=== PATIENT | male | born 1990 | race Caucasian/White ===

== ENCOUNTER 2017-11-06 19:10 | Emergency (ER) | payer MEDICARE, MEDICAID, SELFPAY ==
[2017-11-06 19:10] VITALS: BP 139/91; PULSE 122; RESP 20; TEMP 36.7; O2SAT 95; BMI 30.7
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
[2017-11-06] MEDS: Naproxen 250 MG Tablet 500 MG PO (20:25)
[2017-11-06] MEDS: HYDROcodone Bitartrate/Apap 5/325 Tablet PO (20:25)
--- NOTE | 2017-11-06 20:32 | ED.RN ---
Verbal and written d/c instructions given to patient. Dressing placed and instructions for follow up given. Gait steady out of department.
== END 2017-11-06 20:30 | disposition home or self-care (01) ==
PROVIDERS: Emergency Provider Emergency Medicine
DX: T23.232A Burn of second degree of multiple left fingers (nail), not including thumb, initial encounter (principal); X00.8XXA Other exposure to uncontrolled fire in building or structure, initial encounter; Y93.9 Activity, unspecified; Y92.9 Unspecified place or not applicable; Y99.9 Unspecified external cause status; Z72.0 Tobacco use
CPT/HCPCS: 99283

== ENCOUNTER 2018-07-19 19:08 | Emergency (ER) | payer MEDICARE, MEDICAID, SELFPAY ==
[2018-07-19 19:09] VITALS: BP 138/77; PULSE 115; RESP 17; TEMP 37.4; O2SAT 98; BMI 27.1
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
== END 2018-07-19 19:49 | disposition home or self-care (01) ==
LOC: ED 19:48
PROVIDERS: Emergency Provider Emergency Medicine
DX: S51.811A Laceration without foreign body of right forearm, initial encounter (principal); W25.XXXA Contact with sharp glass, initial encounter; Y93.9 Activity, unspecified; Y92.009 Unspecified place in unspecified non-institutional (private) residence as the place of occurrence of the external cause; Y99.9 Unspecified external cause status
CPT/HCPCS: 12002; 99284

== ENCOUNTER 2018-07-28 22:58 | Emergency (ER) | payer MEDICARE, MEDICAID, SELFPAY ==
[2018-07-28 23:00] VITALS: BP 134/76; PULSE 97; RESP 18; TEMP 37.1; O2SAT 98; BMI 28.4
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
--- NOTE | 2018-07-28 23:19 | ED.DEP ---
ED Disposition - Plan for ED Patient: Chief Complaint: Wound Check Instructions: ED Wound Check Laceration FU Infec, ED Pharyngitis Viral Prescriptions: Cephalexin [Keflex] 500 mg PO Q6 #40 cap Referrals: Care Physician,No Primary [Primary Care Provider] -
== END 2018-07-28 23:34 | disposition home or self-care (01) ==
LOC: ED 23:24
PROVIDERS: Emergency Provider Emergency Medicine
DX: S51.811D Laceration without foreign body of right forearm, subsequent encounter (principal); L08.9 Local infection of the skin and subcutaneous tissue, unspecified; W25.XXXD Contact with sharp glass, subsequent encounter; J02.9 Acute pharyngitis, unspecified; Z72.0 Tobacco use
CPT/HCPCS: 99282

== ENCOUNTER 2019-03-08 14:34 | Emergency (ER) | payer MEDICARE, MEDICAID, SELFPAY ==
[2019-03-08 14:35] VITALS: BP 129/73; PULSE 119; RESP 16; TEMP 36.8; O2SAT 98; BMI 27.3
[2019-03-08 15:01] VITALS: PULSE 94; RESP 16; O2SAT 97
--- NOTE | 2019-03-08 15:07 | CT_ITS ---
STUDY: CT ABDOMEN AND PELVIS WITH CONTRAST REASON FOR EXAM: Male, 28 years old. Right lower quadrant pain radiating to right testicle RADIATION DOSAGE (If Supplied By Facility): CTDIvol = ( 14.23 ) mGy, DLP = ( 991.05 ) mGycm TECHNIQUE: Transaxial images were obtained from the dome of the diaphragm to the symphysis pubis without oral contrast. 100ML IV Isovue 300 was administered. Sagittal and coronal images were reconstructed. Individualized dose optimization techniques were used for this CT. COMPARISON: None. FINDINGS: There is scanning artifact on multiple images secondary to orthopedic spinal hardware. The visualized lung bases are unremarkable. The visualized portions of the heart are within normal limits. Normal liver. Normal gallbladder and extrahepatic biliary system. Normal spleen. Normal pancreas. Normal bilateral adrenal glands. Normal right kidney. Normal left kidney. Normal visualized stomach. Normal small intestine. There is sigmoid diverticulosis with no evidence of diverticulitis. The appendix is visualized and appears normal. Normal abdominal aorta. Normal inferior vena cava. Normal retroperitoneum. Normal urinary bladder. The prostate, seminal vesicles, and seminal vesicle angles appear normal. Normal abdominal wall. There are posterior spinal fusion changes with rods and interpeduncular screws from the visualized lower thoracic region to L3. CT/Abdomen/Pelvis W IV Cont ONLY IMPRESSION: Sigmoid diverticulosis with no evidence of diverticulitis. There is no evidence of nephro or ureterolithiasis, hydronephrosis, or hydroureter. The appendix appears normal. Posterior spinal fusion changes with rods and interpeduncular screws from the visualized lower thoracic region to L3. Electronically Signed: Stephane Dow MD at 16:21 EDT , Service support ,
--- NOTE | 2019-03-08 15:08 | US_ITS ---
STUDY: SCROTUM ULTRASOUND REASON FOR EXAM: Male, 28 years old. Scrotal pain TECHNIQUE: Ultrasound evaluation of the scrotum was performed with color Doppler and static albert-scale imaging. COMPARISON: None. FINDINGS: RIGHT TESTICLE INTRATESTICULAR: There is a normal size of the right testicle. The right testicle measures 4.6 x 3.5 x 2.4 cm. There is a homogenous echotexture. There is increased arterial and increased venous vascularity. There is no demonstrated right testicular mass or cyst. EXTRATESTICULAR: The epididymis is normal in size. The epididymis head measures 0.6 x 0.9 x 1.0 cm. There is increased (hyperemic) vascularity of the epididymis. There is no demonstrated epididymal cystic structure. There is a small hydrocele. There is no demonstrated varicocele. There is no demonstrated extratesticular mass or cyst. LEFT TESTICLE INTRATESTICULAR: There is a normal size of the left testicle. The left testicle measures 4.7 x 3.0 x 2.0 cm. There is a homogenous echotexture. There is normal arterial and normal venous vascularity. There is no demonstrated left testicular mass or cyst. EXTRATESTICULAR: The epididymis is normal in size. The epididymis head measures 0.6 x 1.0 x 1.2 cm. There is normal vascularity of the epididymis. There is no demonstrated epididymal cystic structure. There is no demonstrated hydrocele. There is no demonstrated varicocele. There is no demonstrated extratesticular mass or cyst. US/Testicular with Arterial Flow IMPRESSION: Increased vascularity of the right testicle and epididymal head which may represent epididymoorchitis. There is a small right hydrocele. Electronically Signed: Stephane Dow MD at 16:58 EDT , Service support ,
--- NOTE | 2019-03-08 15:09 | ED.DCSUM_ITS ---
- ER Visit Summary Date of Service: 03/08/19 Chief Complaint: Right lower quadrant abdominal pain and right testicular pain History of Present Illness: The patient is a 28 M who presents for right lower quadrant abdominal pain, onset yesterday, that is now radiating into the right testicle with some pain and swelling in the testicle. He is pain is constant with intermittent sharp pains. There is no radiation into the back or remainder of the abdomen. Patient denies any fever. No vomiting or diarrhea but he does have nausea. No urinary symptoms. Patient has no history of abdominal surgeries. No medical history. Patient has not tried any medication for his pain. Physical Examination: Vital signs: afebrile, hemodynamically stable, no hypoxia on room air General: well nourished, well developed, in no distress Skin: warm, dry, no rash, no pallor HEENT: normocephalic and atraumatic; PERRL, EOMI, moist mucous membranes Cardiovascular: Tachycardic rate and rhythm without murmurs, no peripheral edema, 2+ pulses all distal extremities Respiratory: No increased work of breathing, lungs are clear to auscultation bilaterally, no rales, rhonchi or wheezing Abdominal: Abdomen is soft, tender in the right lower quadrant with normoactive bowel sounds, no guarding or rebound, no masses : No penile lesions or discharge, no tenderness to palpation of the left testicle, no noted swelling of the right testicle but diffuse tenderness to palpation, normal vertical lie, cremasteric reflex intact MSK: Moves all extremities, no deformities, normal strength Neuro: Awake and alert, oriented ?4. No facial droop, sensation and motor function intact and symmetric Test Results: Abnormal Lab Results 03/08/19 03/08/19 03/08/19 15:20 15:20 16:36 WBC 11.8 H RBC 5.55 Hgb 16.2 Hct 47.4 MCV 85.4 MCH 29.2 MCHC 34.2 RDW 13.0 RDW Differential 40.5 Plt Count 232 MPV 10.1 Immature Gran % (Auto) 0.300 Neut % (Auto) 73.4 H Lymph % (Auto) 17.9 L Waller % (Auto) 8.1 Eos % (Auto) 0.2 Baso % (Auto) 0.1 Absolute Neuts (auto) 8.7 H Absolute Lymphs (auto) 2.11 Total Counted Not Reportable Sodium 137 Potassium 4.0 Chloride 106 Carbon Dioxide 27.0 Anion Gap 4 L BUN 8 Creatinine 0.81 Estim Creat Clear Calc 143.32 Est GFR (MDRD) Af Amer 145 Est GFR (MDRD) Non-Af 120 BUN/Creatinine Ratio 9.9 L Glucose 82 Calcium 9.2 Total Bilirubin 0.50 AST 19 ALT 31 Alkaline Phosphatase 99 Total Protein 8.3 H Albumin 4.4 Globulin 3.9 Albumin/Globulin Ratio 1.1 Urine Color Yellow Urine Clarity Clear Urine pH 6.0 Ur Specific [place] 1.005 Urine Protein Negative Urine Glucose (UA) Normal Urine Ketones Negative Urine Occult Blood Negative Urine Nitrite Negative Urine Bilirubin Negative Urine Urobilinogen Normal Ur Leukocyte Esterase Negative Urine RBC 0 SEEN Urine WBC 0 SEEN Ur Squamous Epith Cells 0 SEEN Urine Bacteria 0 SEEN Urine Mucus 0 SEEN Chlam trachomat DNA PCR N.gonorrhoeae DNA (PCR) 03/08/19 16:36 WBC RBC Hgb Hct MCV MCH MCHC RDW RDW Differential Plt Count MPV Immature Gran % (Auto) Neut % (Auto) Lymph % (Auto) [place] % (Auto) Eos % (Auto) Baso % (Auto) Absolute Neuts (auto) Absolute Lymphs (auto) Total Counted Sodium Potassium Chloride Carbon Dioxide Anion Gap BUN Creatinine Estim Creat Clear Calc Est GFR (MDRD) Af Amer Est GFR (MDRD) Non-Af BUN/Creatinine Ratio Glucose Calcium Total Bilirubin AST ALT Alkaline Phosphatase Total Protein Albumin Globulin Albumin/Globulin Ratio Urine Color Urine Clarity Urine pH Ur Specific [place] Urine Protein Urine Glucose (UA) Urine Ketones Urine Occult Blood Urine Nitrite Urine Bilirubin Urine Urobilinogen Ur Leukocyte Esterase Urine RBC Urine WBC Ur Squamous Epith Cells Urine Bacteria Urine Mucus Chlam trachomat DNA PCR Negative N.gonorrhoeae DNA (PCR) Negative Clinical Impression(s) from Imaging Studies Abdomen/Pelvis CT 03/08/19 15:07 IMPRESSION: Sigmoid diverticulosis with no evidence of diverticulitis. There is no evidence of nephro or ureterolithiasis, hydronephrosis, or hydroureter. The appendix appears normal. Posterior spinal fusion changes with rods and interpeduncular screws from the visualized lower thoracic region to L3. Electronically Signed: Stephane Dow MD at 16:21 EDT , Service support , Testicular Ultrasound 03/08/19 15:08 IMPRESSION: Increased vascularity of the right testicle and epididymal head which may represent epididymoorchitis. There is a small right hydrocele. Electronically Signed: Stephane Dow MD at 16:58 EDT , Service support , Medications Given Discontinued Medications Ceftriaxone Sodium (Rocephin) 250 mg IM X1 ONE Stop: 03/08/19 17:29 Last Admin: 03/08/19 18:33 Dose: 250 mg Documented by: BESS Sodium Chloride () 1,000 mls @ 1,000 mls/hr IV .Q1H ONE Stop: 03/08/19 16:06 Last Admin: 03/08/19 15:27 Dose: 1,000 mls/hr Documented by: BESS Levofloxacin (Levaquin Tablet) 500 mg PO X1 ONE Stop: 03/08/19 17:31 Last Admin: 03/08/19 18:32 Dose: 500 mg Documented by: BESS Morphine Sulfate () 4 mg IV X1 ONE Stop: 03/08/19 15:08 Last Admin: 03/08/19 15:27 Dose: 4 mg Documented by: BESS Ondansetron HCl (Zofran) 4 mg IV X1 ONE Stop: 03/08/19 15:08 Last Admin: 03/08/19 15:27 Dose: 4 mg Documented by: BESS Emergency Department Course and Treatment: Patient was given fluids, morphine and Zofran for symptomatic relief. CT scan of the abdomen and pelvis was performed to look for possible appendicitis. Ultrasound performed of the scrotum to evaluate for epididymitis or torsion. CT scan showed no acute findings. Ultrasound was concerning for epididymoorchitis. Patient's urine showed no hematuria or pyuria. Culture pending. Labs were otherwise unremarkable. Patient did receive morphine, IV fluids and Zofran at initial presentation for his pain. He has had unprotected sex in the last 5 months but denies any discharge, dysuria or other symptoms of STI. Because of the patient's age and the epididymoorchitis, he was covered for gonorrhea and chlamydia as well as enteric pathogens. He was given intramuscular Rocephin. He was discharged home on Levaquin. Return precautions given. Patient discharged home. After discharge, gonorrhea and chlamydia returned and were both negative. Treatment Plan: [] Disposition: [] Impression: Right epididymoorchitis This note was generated with [employer] dictation software. It may contain incorrect words, spelling, and punctuation that were not noted in review of the chart prior to signing ED Disposition - Plan for ED Patient: Disposition: Home or Assisted Living Instructions: Epididymitis, Orchitis Prescriptions: levoFLOXacin tablet [Levaquin] 500 mg PO DAILY #10 tab Prescription Printed Naproxen [Naprosyn] 500 mg PO BID PRN #20 tab Prescription Printed Referrals: Care Physician,No Primary [Primary Care Provider] - Additional Instructions: Take the antibiotics for the full 10 days even if you feel better before they are complete. Use naproxen as needed for pain. Please follow-up with your new primary care doctor if you are not having improvement. If you have any worsening of your condition or any new concerning symptoms, please return immediately to the emergency department for another evaluation.
[2019-03-08] MEDS: Morphine 4 MG/ML Syringe IV (15:27)
[2019-03-08] MEDS: Ondansetron 4 MG/2 ML Vial IV (15:27)
[2019-03-08] MEDS: 0.9% Normal Saline 1,000 ML 1000 ML IV (15:27)
[2019-03-08 15:30] LABS: Absolute Lymphocyte Count 2.11 X10^3/ul (0.83-4.51); Absolute Neutrophil Count 8.7 X10^3/uL (2.0-7.7); Basophil# 0.01 X10^3/uL; Basophil% 0.1 % (0-1); Eosinophil# 0.02 X10^3/uL; Eosinophils% 0.2 % (0-5); Hematocrit 47.4 % (40-54); Hemoglobin 16.2 g/dl (13.0-16.5); Lymphocyte # 2.11 X10^3/ul (4.0); Lymphocyte % 17.9 % (19-41); Mean Corp Hgb Conc 34.2 g/gl (32-36); Mean Corpuscular Hgb 29.2 pg (27.0-32.0); Mean Corpuscular Volume 85.4 fL (80-94); Mean Platelet Vol. 10.1 fl (6.2-12.0); Monocyte# 0.96 X10^3/uL; Monocyte% 8.1 % (0-10); Neutrophil # 8.65 X10^3/uL (2.7-7.7); Neutrophil % 73.4 % (47-70); Platelet Count 232 K/mm3 (150-450); RBC Distribution Width SD 40.5 fl (35.1-43.9); Red Blood Count 5.55 M/mm3 (4.6-6.2); White Blood Count 11.8 K/mm3 (4.4-11.0)
[2019-03-08 15:33] LABS: POSITIVE COUNT NO; POSITIVE DIFFERENTIAL NO; POSITIVE MORPHOLOGY NO
[2019-03-08 15:47] LABS: BUN 8 mg/dL (7-18); Creatinine, Serum 0.81 mg/dL (0.70-1.30); Estimated Creatinine Clearance 143.32 ml/min; Glucose 82 mg/dL (74-106)
[2019-03-08 15:48] LABS: ALB/GLOB Ratio 1.1 RATIO (0.9-2.4); AST(SGOT) 19 U/L (15-37); Alanine Aminotransfer ALT/SGPT 31 U/L (16-61); Albumin, Serum 4.4 g/dL (3.2-5.0); Alkaline Phosphatase 99 U/L (45-117); Anion Gap 4 (5-15); BUN/Creat Ratio 9.9 RATIO (10-20); Calcium,Total 9.2 mg/dL (8.5-10.1); Chloride 106 mmol/L (98-107); EST Glomerular Filtration Rate 120 mL/min (>60); Est Glom Filt Rate - Afr Amer 145 mL/min (>60); Globulin 3.9 g/dL (2.2-4.2); Protein, Total 8.3 g/dL (6.4-8.2); Sodium Level 137 mmol/L (136-145)
[2019-03-08 16:46] LABS: Bacteria 0 SEEN /hpf (None Seen); Mucous, Urine 0 SEEN /hpf (<or=2+); Red Blood Cells-Urine 0 SEEN /hpf (0-5); Squamous Epithelial Cells - UA 0 SEEN /hpf (0-5); White Blood Cells 0 SEEN /hpf (0-5)
[2019-03-08 16:54] LABS: Color, Urine Yellow (Yellow); Glucose, Dipstick Normal (Normal); Ketone-Dipstick Negative (Negative); Leukocyte Esterase-Dipstick Negative /ul (Negative); Nitrite-Dipstick Negative (Negative); Occult Blood-Urine Negative /ul (Negative); Protein-Dipstick Negative (Negative); Specific Gravity, Urine 1.005 (1.002-1.030); Urine Bilirubin Dipstick Negative (Negative); Urine Clarity Clear (Clear); Urine Urobilinogen Normal (Normal)
[2019-03-08 17:50] VITALS: RESP 16
[2019-03-08] MEDS: levoFLOXacin 250 MG Tablet 500 MG PO (18:32)
[2019-03-08] MEDS: Ceftriaxone 500 MG Vial 250 MG IM (18:33)
[2019-03-08 18:45] VITALS: BP 123/81; PULSE 81; RESP 14; O2SAT 97
[2019-03-08 20:25] LABS: Chlamydia Trachomatis by PCR Negative (Negative); Neisserai gonorrhoeae by PCR Negative (Negative); Probe Check PASS; Sample Adequacy Control PASS; Specimen Processing Control PASS
== END 2019-03-08 18:45 | disposition home or self-care (01) ==
PROVIDERS: Emergency Provider Emergency Medicine
DX: N45.3 Epididymo-orchitis (principal); N43.3 Hydrocele, unspecified; K57.30 Diverticulosis of large intestine without perforation or abscess without bleeding; R00.0 Tachycardia, unspecified; R11.0 Nausea; Z72.0 Tobacco use
CPT/HCPCS: 74177; 76870; 80053; 81001; 85025; 87086; 87088; 87491; 87591; 93976; 96361; 96372; 96374; 96375; 99285; J7030; Q9967; J2405

== ENCOUNTER 2019-09-08 16:17 | Emergency (ER) | payer MEDICAID, SELFPAY ==
[2019-09-08 16:18] VITALS: BP 120/87; PULSE 97; RESP 18; TEMP 37.4; O2SAT 97; BMI 27.0
--- NOTE | 2019-09-08 16:38 | ED.DCSUM_ITS ---
- ER Visit Summary Date of Service: 09/08/19 Chief Complaint: Dental pain History of Present Illness: The patient is a 29 M who presents with right upper dental pain that became worse today. Patient states he noted some swelling over the right upper gingiva along the area of the first molar. There is no d ischarge or drainage. Patient denies any fevers or chills. Patient admits to hot and cold sensitivity. Patient describes his pain is aching and constant. Physical Examination: Vital signs are stable. Patient is afebrile. Patient is in no acute distress. Oral mucosa is pink and moist. There is a small pustule noted over the gingiva over the right upper first molar. There is some mild fluctuance. There are multiple dental caries noted. Oropharynx is clear. Neck is supple. Trachea is midline. There is no JVD. There is no cervical lymphadenopathy noted. Emergency Department Course and Treatment: The pustule was incised with the tip of an 18-gauge needle. A moderate amount of purulent drainage was expressed. Patient tolerated the procedure well. Patient felt better on reevaluation. Patient was given a prescription for Pen-Vee K. Patient was instructed to follow-up with his primary care physician and dentist in 5 to 7 days. Patient understood and was agreeable with the plan. All questions were answered. Disposition: Discharge home Impression: Dental abscess This note was generated with [employer] dictation software. It may contain incorrect words, spelling, and punctuation that were not noted in review of the chart prior to signing ED Disposition - Plan for ED Patient: Disposition: Home or Assisted Living Diagnosis: Dental abscess Instructions: Dental Abscess Prescriptions: Penicillin V Potassium 500 mg PO 4X/DAY #40 tab Prescription Printed Referrals: Care Physician,Elina Primary [Primary Care Provider] - Christine Andrews [NON-STAFF] - 5-7 Days
== END 2019-09-08 16:53 | disposition home or self-care (01) ==
LOC: ED 16:42
PROVIDERS: Emergency Provider Emergency Medicine
DX: K04.7 Periapical abscess without sinus (principal); K02.9 Dental caries, unspecified; R51 Headache; R11.0 Nausea; Z72.0 Tobacco use; Z79.899 Other long term (current) drug therapy
CPT/HCPCS: 41800; 99282

== ENCOUNTER 2019-09-21 10:02 | Emergency (ER) | payer MEDICAID, SELFPAY ==
[2019-09-21 10:04] VITALS: BP 142/78; PULSE 123; RESP 18; TEMP 36.7; O2SAT 95; BMI 27.1
--- NOTE | 2019-09-21 10:34 | ED.VIS.GEN ---
History of Present Illness Chief Complaint: Dental Informant: Patient Onset: Today Current Severity: Moderate Maximum Severity: Moderate Narrative: Patient reports waking this morning with swelling of his left maxillary gums and dental pain. His left maxillary second molar had broken off sometime ago. He was recently here for right-sided dental pain and completed a course of Pen-Vee K. He states he is not been able to find a dentist that will take his insurance. - Past Medical History (1) Gastritis Status: Resolved Past Medical History - Allergies and Home Meds Allergies/Adverse Reactions: Allergies No Known Allergies Allergy (Verified 09/21/19 10:03) Primary Care Physician: Care Physician,No Primary [Primary Care Provider] - Prior records reviewed: Yes Smoking Status: Current every day smoker Review of Systems General: Denies: Chills, Fever Eyes: Denies: Visual changes - bilaterally ENT: Reports: - - Dental pain. Denies: Bilateral ear pain Cardiovascular: Denies: Chest pain Respiratory: Denies: Dyspnea, Cough Gastrointestinal: Denies: Abdominal pain, Nausea, Vomiting, Diarrhea Musculoskeletal: Denies: Neck pain, Back pain Skin: Denies: Rash Neurological: Denies: Headache Allergy: Denies: Uticaria Physical Exam Vital Signs/Narrative: Vital Signs Temp Pulse Resp BP Pulse Ox 09/21/19 10:04 98.1 F 123 H 18 142/78 H 95 Inital Vital Signs reviewed: Yes General: Well nourished, Well developed Head: Normocephalic, Atraumatic Eyes: EOMI ENT: - - Left maxillary second molar is broken off at the gumline. Patient has mild drainage from the site with surrounding gum edema. Posterior pharynx examination is normal. Patient is tolerating secretions well and has a strong voice. Neck: Supple Cardiovascular: Tachycardia Respiratory: No distress, CTA bilaterally Abdomen: Soft, Nontender Back: Nontender Extremities: Nontender Skin: Normal color Neurological: Alert, Oriented x3 Psychological: Normal affect Diagnostic/Tx/Re-eval - Medical Decision Making Patient recently completed a course of penicillin. He will be given clindamycin and naproxen. He is given a list of the dental clinics in the area. ED Disposition - Plan for ED Patient: Disposition: Home or Assisted Living Diagnosis: Dental abscess Instructions: Dental Abscess Prescriptions: Clindamycin [Cleocin] 300 mg PO 4X/DAY #80 cap Transmission Status: Pending to [facility] Naproxen [Naprosyn] 500 mg PO BID PRN PRN #20 tab PRN Reason: Pain Score 4-10/10 [facility] Additional Instructions: Dental list provided
[2019-09-21] MEDS: Naproxen 500 MG Tablet PO (11:00)
[2019-09-21] MEDS: Clindamycin HCl 150 MG Capsule 300 MG PO (11:00)
--- NOTE | 2019-09-21 11:03 | ED.RN ---
DISCHARGE INSTRUCTIONS GIVEN INTO AND REVIEWED WITH PATIENT, PATIENT DENIES QUESTIONS OR CONCERNS AND VOICES UNDERSTANDING OF DISCHARGE INSTRUCTIONS. PT AMBULATES OUT OF ROOM WITHOUT DIFFICULTY.
== END 2019-09-21 11:04 | disposition home or self-care (01) ==
LOC: ED 10:52
PROVIDERS: Emergency Provider Emergency Medicine
DX: K04.7 Periapical abscess without sinus (principal); F17.200 Nicotine dependence, unspecified, uncomplicated
CPT/HCPCS: 99283

== ENCOUNTER 2019-12-17 12:38 | Emergency (ER) | payer MEDICAID, SELFPAY ==
[2019-12-17 12:39] VITALS: BP 124/93; PULSE 104; RESP 18; TEMP 36.8; O2SAT 99; BMI 25.1
--- NOTE | 2019-12-17 13:00 | ED.VIS.GEN ---
History of Present Illness Chief Complaint: Back Informant: Patient Onset: Days Current Severity: Moderate Maximum Severity: Moderate Narrative: Patient slipped on some wet choi and fell 2 days ago. He has had progressively increasing right low back pain since that time it is now shooting down the right leg. No problems with bowel or bladder control. No paresthesias. He has had prior back surgery with fransisco placement. - Past Medical History (1) Previous back surgery Status: Chronic Past Medical History - Allergies and Home Meds Allergies/Adverse Reactions: Allergies No Known Allergies Allergy (Verified 12/17/19 12:39) Primary Care Physician: Care Physician,No Primary [Primary Care Provider] - Prior records reviewed: Yes Smoking Status: Current every day smoker Review of Systems General: Denies: Chills, Fever Eyes: Denies: Visual changes - bilaterally ENT: Denies: Bilateral ear pain Cardiovascular: Denies: Chest pain Respiratory: Denies: Dyspnea, Cough Gastrointestinal: Denies: Abdominal pain, Nausea, Vomiting, Diarrhea Genitourinary: Denies: Dysuria Musculoskeletal: Reports: Back pain, Extremity Pain Skin: Denies: Rash Neurological: Denies: Headache, Weakness, Parasthesia Psych: Denies: Depression Hematologic: Denies: Easy bruising Allergy: Denies: Uticaria Physical Exam Vital Signs/Narrative: Vital Signs Temp Pulse Resp BP Pulse Ox 12/17/19 12:39 98.2 F 104 H 18 124/93 H 99 Inital Vital Signs reviewed: Yes General: Well nourished, Well developed Head: Normocephalic ENT: Moist mucous membranes Neck: Supple Cardiovascular: Regular rate, Regular rhythm Respiratory: No distress, CTA bilaterally Abdomen: Soft, Nontender Back: - - No midline tenderness. Does have reproducible tenderness in the right low lumbar paraspinal region and over the sciatic notch. Old healed scar through the thoracic and upper lumbar spine noted. Extremities: - - Mild muscular tenderness over the thigh and calf. No leg edema noted. Strong distal pulses and good range of motion. Skin: Normal color Neurological: Alert, Oriented x3 Psychological: Normal affect Diagnostic/Tx/Re-eval - Medical Decision Making Patient was given IM Dilaudid and Toradol along with p.o. prednisone. Repeat evaluation he is now able to lie on his back and move around more. He will be given prescriptions for naproxen, Flexeril, prednisone, and Stinnett for breakthrough pain. ED Disposition - Plan for ED Patient: Disposition: Home or Assisted Living Diagnosis: Sciatica Instructions: ED LUMBAR RADICULOPATHY Prescriptions: Prednisone [Deltasone] 40 mg PO DAILY #10 tab Transmission Status: Pending to [facility]30 cycloBENZAPRine HCl [Flexeril] 10 mg PO TID PRN #20 tab PRN Reason: Muscle Spasm Transmission Status: Pending to [facility]30 Naproxen [Naprosyn] 500 mg PO BID PRN PRN #20 tab PRN Reason: Pain Score 4-10/10 Transmission Status: Pending to [facility] Hydrocodone Bitart/Apap 5-325 [Stinnett 5MG-325MG] 1 tablet PO Q4H PRN PRN 2 Days #10 tablet PRN Reason: Pain Transmission Status: Sent to [facility]30 Referrals: Joss Horton MD [STAFF PHYSICIAN] - As Needed
[2019-12-17] MEDS: Ketorolac 60 MG/2 ML Vial IM (13:19)
[2019-12-17] MEDS: predniSONE 20 MG Tablet 60 MG PO (13:19)
[2019-12-17] MEDS: HYDROmorphone 1 MG/ML Syringe IM (13:20)
[2019-12-17 15:09] VITALS: BP 110/74; PULSE 67; RESP 18; O2SAT 99
== END 2019-12-17 15:10 | disposition home or self-care (01) ==
PROVIDERS: Emergency Provider Emergency Medicine
DX: M54.41 Lumbago with sciatica, right side (principal); F17.200 Nicotine dependence, unspecified, uncomplicated
CPT/HCPCS: 96372; 99283

== ENCOUNTER → 2020-01-10 11:16 | Outpatient (CLI) | payer MEDICAID, SELFPAY ==
[2019-12-17 12:39] VITALS: BMI 25.1
[2020-01-10 12:59] LABS: Anion Gap 4 (5-15); BUN 11 mg/dL (7-18); BUN/Creat Ratio 15.1 RATIO (10-20); CPK Total, Creatine Kinase 205 U/L (39-308); Calcium,Total 8.9 mg/dL (8.5-10.1); Chloride 107 mmol/L (98-107); Creatinine, Serum 0.73 mg/dL (0.70-1.30); EST Glomerular Filtration Rate 134 mL/min (>60); Est Glom Filt Rate - Afr Amer 162 mL/min (>60); Glucose 96 mg/dL (74-106); Potassium 3.9 mmol/L (3.5-5.1); Sodium Level 137 mmol/L (136-145)
--- NOTE | 2020-01-10 13:15 | VDLE_ITS ---
Reason For Study: pain RIGHT GSV is normal. CFV is compressible, spontaneous, phasic, competent and demonstrates normal augmentation. FV is compressible, spontaneous, phasic, competent and demonstrates normal augmentation. POP V is compressible, spontaneous, phasic, competent and demonstrates normal augmentation. T/P Trunk is compressible. PTV is compressible. RT PerV is compressible. Procedure Exam performed in department. The exam was abbreviated due to the COVID 19 protocol. The exam was diagnostic. A preliminary report was called and/or faxed to Dr. Dr. Fuller. Interpretation Summary Deep veins of the right lower extremity are patent and compressible segmentally. There is no evidence of right lower extremity deep vein thrombosis. Valvular competence appears intact within the proximal deep venous system on the right . The right great saphenous vein appears patent and compressible segmentally. Ordering Physician: Joss Fuller Performed By: Rambo Youngblood RVT
== END ==
PROVIDERS: Referring Provider Family Medicine; Visit Provider Family Medicine
DX: M79.661 Pain in right lower leg (principal)
CPT/HCPCS: 36415; 80048; 82550; 86140; 93971

== ENCOUNTER 2020-07-15 17:21 | Emergency (ER) | payer MEDICAID, SELFPAY ==
[2020-07-15 17:22] VITALS: BP 113/76; PULSE 120; RESP 17; TEMP 36.2; O2SAT 97; BMI 29.9
[2020-07-15] MEDS: Ketorolac 30 MG/ML Syringe 15 MG IV (18:12)
--- NOTE | 2020-07-15 18:18 | RAD_ITS ---
STUDY: X-RAY - LEFT KNEE REASON FOR EXAM: Male, 29 years old. CELLULITIS IN LEFT KNEE TECHNIQUE: 4 view(s) of the knee. COMPARISON: None. FINDINGS: Normal visualized distal femur. Normal visualized proximal tibia and fibula. Normal proximal tibiofibular articulation. Normal medial femorotibial compartment. Normal lateral femorotibial compartment. Normal patellofemoral articulation. There is skin thickening ventral to the patella. RAD/Knee 4 or More Views IMPRESSION: No acute osseous injury. Dermal thickening ventral to the patella assistance with history of cellulitis. Electronically Signed: Patt Peterson MD at 18:47 EDT Tel , Service support ,
[2020-07-15 18:27] LABS: Absolute Lymphocyte Count 2.13 X10^3/uL (0.83-4.51); Absolute Neutrophil Count 9.4 X10^3/uL (2.0-7.7); Basophil# 0.01 X10^3/uL; Basophil% 0.1 % (0-1); Eosinophil# 0.04 X10^3/uL; Eosinophils% 0.3 % (0-5); Hematocrit 40.8 % (40-54); Hemoglobin 13.3 g/dL (13.0-16.5); Lymphocyte # 2.13 X10^3/ul (4.0); Lymphocyte % 17.3 % (19-41); Mean Corp Hgb Conc 32.6 g/dL (32-36); Mean Corpuscular Volume 88.9 fL (80-94); Mean Platelet Vol. 9.4 fl (6.2-12.0); Monocyte% 4.9 % (0-10); NRBC Flagged by Analyzer 0 % (0-5); Neutrophil # 9.44 X10^3/uL (2.7-7.7); Neutrophil % 76.9 % (47-70); Platelet Count 317 K/mm3 (150-450); RBC Distribution Width CV 13.2 % (11.6-14.6); RBC Distribution Width SD 42.6 fl (35.1-43.9); Red Blood Count 4.59 M/mm3 (4.6-6.2); White Blood Count 12.3 K/mm3 (4.4-11.0)
--- NOTE | 2020-07-15 18:31 | ED.DCSUM_ITS ---
History of Present Illness Chief Complaint: Cellulitis Informant: Patient Onset: Yesterday Context: Gradual Onset Timing: Continuous Narrative: Patient is a 29-year-old male that denies any past medical history presenting with pain, redness and swelling of his left knee. Patient states he developed what he thought was is it over his knee yesterday. He tried to pop it today and since has had progressive pain, redness and swelling. He states it hurts to move his knee. He did get a small amount of pus out when he tried to drain it. Patient denies any history of MRSA or cellulitis. He denies any injury to the k nee. He denies any fever or chills. Nuys any systemic symptoms. Denies any other complaints at this time. Past Medical History - Allergies and Home Meds Allergies/Adverse Reactions: Allergies No Known Allergies Allergy (Verified 07/15/20 17:22) Primary Care Physician: Care Physician,No Primary [Primary Care Provider] - Past Medical History: None Surgical History: noncontributory Smoking Status: Current every day smoker Alcohol: None Drugs: None Review of Systems General: Denies: Chills, Fever, Sweats Eyes: Denies: Visual changes - bilaterally, Diplopia ENT: Denies: Rhinorrhea, Sore throat Cardiovascular: Denies: Chest pain, Palpitations Respiratory: Denies: Dyspnea, Cough, Dyspnea on exertion Gastrointestinal: Denies: Abdominal pain, Nausea, Vomiting, Diarrhea, Melena, Hematochezia Genitourinary: Denies: Dysuria, Hematuria, Frequency Musculoskeletal: Reports: Swelling - Left knee, Extremity Pain - Left knee. Denies: Back pain Skin: Reports: Rash - Redness to the left knee, Abscess - Left knee Neurological: Denies: Headache, Weakness, Numbness Physical Exam Vital Signs/Narrative: Vital Signs Temp Pulse Resp BP Pulse Ox 07/15/20 17:22 97.2 F L 120 H 17 113/76 97 Inital Vital Signs reviewed: Yes General: Well nourished, Well developed, No Acute Distress Head: Normocephalic, Atraumatic Eyes: Perrl, EOMI ENT: Moist mucous membranes, No rhinorrhea Neck: Supple, Nontender Cardiovascular: Regular rate, Regular rhythm, No murmurs Respiratory: No distress, CTA bilaterally, Chest nontender Abdomen: Soft, Nontender, Nondistended, Normal bowel sounds Back: Nontender, Normal Inspection Extremities: - - Edema with limited range of motion secondary to pain to the left knee. Edema appears to be prepatellar in nature. Unable to check range of motion of the knee secondary to patient's pain.. Negative for: Calf Tenderness Skin: Rash - Erythema and warmth diffusely over the anterior left knee with a central area of induration. No pinpoint area of fluctuance appreciated. Neurological: Alert, Oriented x3, Cranial nerves II-XII grossly intact, Normal Strength, Normal Sensation Psychological: Normal affect, Normal Mood Diagnostic/Tx/Re-eval Clinical Impression(s) from Imaging Studies Knee X-Ray 07/15/20 18:18 IMPRESSION: No acute osseous injury. Dermal thickening ventral to the patella assistance with history of cellulitis. Electronically Signed: Patt Peterson MD at 18:47 EDT Tel , Service support , Laboratory Data 07/15/20 07/15/20 18:15 18:15 WBC 12.3 H RBC 4.59 L Hgb 13.3 Hct 40.8 MCV 88.9 MCH 29.0 MCHC 32.6 RDW Std Deviation 42.6 RDW Coeff of Rita 13.2 Plt Count 317 MPV 9.4 Immature Gran % (Auto) 0.500 Neut % (Auto) 76.9 H Lymph % (Auto) 17.3 L [place] % (Auto) 4.9 Eos % (Auto) 0.3 Baso % (Auto) 0.1 Absolute Neuts (auto) 9.4 H Absolute Lymphs (auto) 2.13 Nucleated RBC % 0 ESR 27 H Sodium 138 Potassium 3.3 L Chloride 105 Carbon Dioxide 26.0 Anion Gap 7 BUN 10 Creatinine 0.95 Estim Creat Clear Calc 121.10 Est GFR (MDRD) Af Amer 119 Est GFR (MDRD) Non-Af 98 BUN/Creatinine Ratio 10.5 Glucose 158 H Calcium 8.9 C-React Prot Ext Range 7.34 H - Medical Decision Making Patient evaluated for 1 to 2 days of redness, pain and swelling of his left knee. He started with what looked like a pimple and popped it did get some purulent drainage out. He has overlying cellulitic changes no obvious abscess at this time. Bedside ultrasound performed by myself does not show discrete area of fluctuance amenable to I&D. Patient is given Toradol for pain control. Differential includes a prepatellar septic bursitis as well as cellulitis. CRP and ESR mildly elevated as well as white blood cell count. X-ray shows dermal thickening ventral to the patella consistent with cellulitis. No comment on any effusion. Joint aspiration/bursa aspiration is not performed as patient does have overlying cellulitis and is to be contraindication. Discussed the case with Ortho on-call, Dr. Allen, who will recommend a dose of IV antibioti cs, outpatient of action short outpatient follow-up. Patient discharged home with Motrin for pain control as well. Patient does admit to a past history of IV drug abuse but none currently. ED Disposition - Plan for ED Patient: Disposition: Home or Assisted Living Diagnosis: Cellulitis of knee, left Instructions: ED Skin Infec MRSA Suspect Conf Prescriptions: Smz/Tmp Ds [Bactrim Ds] 1 tab PO BID #14 tab Prescription Printed Cephalexin [Keflex] 500 mg PO Q6 #40 cap Prescription Printed Ibuprofen [Motrin] 600 mg PO Q6H PRN PRN #20 tab PRN Reason: Pain Score 1-10/10 Prescription Printed Referrals: Anna Freitas DO [STAFF PHYSICIAN] - Additional Instructions: Please take antibiotics as prescribed. At this time there is no abscess that can be drained. Apply warm compresses to the area and follow-up in the next day or 2 with orthopedics. Please call the number given to you to schedule an appointment. Return the emergency room with worsening symptoms.
[2020-07-15 18:36] LABS: Erythrocyte Sedimentation Rate 27 mm/hr (0-15)
[2020-07-15 18:40] LABS: Anion Gap 7 (5-15); BUN 10 mg/dL (7-18); BUN/Creat Ratio 10.5 RATIO (10-20); CRP 7.34 mg/L (0.0-3.0); Calcium,Total 8.9 mg/dL (8.5-10.1); Chloride 105 mmol/L (98-107); Creatinine, Serum 0.95 mg/dL (0.70-1.30); EST Glomerular Filtration Rate 98 mL/min (>60); Est Glom Filt Rate - Afr Amer 119 mL/min (>60); Glucose 158 mg/dL (74-106); Potassium 3.3 mmol/L (3.5-5.1); Sodium Level 138 mmol/L (136-145)
[2020-07-15 19:59] VITALS: BP 136/80; PULSE 117; RESP 18; TEMP 37.3; O2SAT 100
[2020-07-15 20:07] VITALS: BP 130/86; PULSE 117; RESP 18; TEMP 37.3; O2SAT 100
[2020-07-15 20:47] VITALS: BP 130/86; PULSE 117; RESP 15; O2SAT 100
--- NOTE | 2020-07-15 20:47 | ED.RN ---
PT A+OX3, EDUCATED ON WRITTEN AND VERBAL DISCHARGE INSTRUCTIONS AND HOME GOING PRESCRIPTIONS. PT EDUCATED ON IMPORTANCE OF ANTIBIOTICS AND DX OF CELLULITIS. PT EDUCATED TO FOLLOW UP WITH ORTHOPEDIC. PT VERBALIZES UNDERSTANDING AND DENIES ANY FURTHER QUESTIONS. PT RUSHING TO BE D/C, REPORTS HE HAS TO WALK. THIS RN OFFERED TO HELP PT FIND A RIDE TO WHICH HE DECLINED. PT IV D/C AND COVERED WITH 2X2 GAUZE AND PAPER TAPE. PT WALKS OUT OF DEPT WITHOUT ASSISTANCE NEEDED FROM STAFF.
== END 2020-07-15 20:50 | disposition home or self-care (01) ==
PROVIDERS: Emergency Provider Emergency Medicine
DX: L03.116 Cellulitis of left lower limb (principal); F17.200 Nicotine dependence, unspecified, uncomplicated
CPT/HCPCS: 73564; 80048; 85025; 85652; 86140; 96365; 96375; 99282; J7050; A4216; J3490

== ENCOUNTER 2020-08-03 12:32 | Emergency (ER) | payer MEDICAID, SELFPAY ==
[2020-08-03 13:22] VITALS: BP 107/68; PULSE 93; RESP 18; TEMP 36.6; O2SAT 100; BMI 30.7
--- NOTE | 2020-08-03 13:39 | RAD_ITS ---
STUDY: X-RAY - LEFT HAND REASON FOR EXAM: Male, 30 years old. INJURY/PAIN MIDDLE METACARPAL AREA. HIT WALL TECHNIQUE: 3 view(s) of the hand. COMPARISON: None. FINDINGS: Normal radiocarpal articulation. Normal distal radioulnar joint. Normal visualized carpal bones. Normal carpal articulations Normal carpometacarpal articulation of the thumb. Normal second through fifth carpometacarpal joints. Normal metacarpi. Normal metacarpophalangeal joint of the thumb. Normal interphalangeal joint of the thumb. Normal proximal and distal phalanges of the thumb. Normal metacarpophalangeal joints of the second through fifth fingers. Normal proximal and distal interphalangeal joints of the second through fifth fingers. Normal phalanges of the second through fifth fingers. The soft tissue structures are unremarkable. RAD/Hand Min 3 Views IMPRESSION: Normal x-ray examination of the hand. Electronically Signed: Lamont Umana, at 14:22 EST , Service support ,
--- NOTE | 2020-08-03 13:39 | ED.DCSUM_ITS ---
History of Present Illness Chief Complaint: Upper Extremity Injury Informant: Patient Onset: Today Mechanism/Context: Blunt Injury Quality of Pain: Dull, Aching, Throbbing Location: Left wrist region Current Severity: Mild Maximum Severity: Moderate Worsened by: Movement and palpation Relieved by: Nothing Associated Symptoms: Loss of function Narrative: Patient is a 30-year-old [id number] male presents with injury to his right hand. He had a fall. He hit the wall square. He localizes the pain to the base of the fourth metacarpal bone. He denies paresthesia, anesthesia motors. He denies prior fracture. Tetanus Immunization: 5-10 years Prior similar symptoms: No Recent Illness/Hospitalization: No - Past Medical History (1) Gastritis Status: Resolved Past Medical History - Allergies and Home Meds Allergies/Adverse Reactions: Allergies No Known Allergies Allergy (Verified 07/15/20 17:22) Primary Care Physician: Care Physician,No Primary [Primary Care Provider] - Surgical History: noncontributory Lives: Alone, Homeless Smoking Status: Current every day smoker Drugs: None Review of Systems General: Denies: Chills, Fever, Malaise Cardiovascular: Denies: Chest pain Respiratory: Denies: Dyspnea Gastrointestinal: Denies: Nausea, Vomiting Musculoskeletal: Reports: Swelling, Extremity Pain. Denies: Myalgias, Arthralgias, Neck pain, Back pain Skin: Reports: Abrasions - Patient over the MCP joint dorsal surface left long finger.. Denies: Rash, Abscess, Wounds Neurological: Denies: Headache, Weakness Endocrine: Denies: Polyuria, Polydipsia Physical Exam Vital Signs/Narrative: Vital Signs Temp Pulse Resp BP Pulse Ox 08/03/20 13:22 98 F 93 18 107/68 100 Inital Vital Signs reviewed: Yes General: Well nourished, Well developed Head: Normocephalic, Atraumatic Eyes: Perrl, EOMI. Negative for: Pale conjunctiva, Scleral icterus Cardiovascular: Regular rate, Regular rhythm Respiratory: No distress Extremeties: There is an abrasion over the MCP joint of the left long finger. There is no pain the patient over the third metacarpal or proximal phalanx. There is pain the patient over the base of the fourth metacarpal bone. Median, radial and ulnar function intact. The extensor commonness, extensor minimize and extensor indices tendon are functionally intact. The flexor digitorum superficialis and flexor digitorum profundus is intact for the index through little finger. There is no subungual hematoma noted. There is no rotational malalignment noted. Skin: Normal color, No rash, Trauma Neurological: Alert, Oriented x3, Cranial nerves II-XII grossly intact, Normal Strength, Normal Sensation Psychological: Depressed Diagnostic/Tx/Re-eval Chest X-Ray - ED: Read by ED Physician, - - Three-view x-ray of the left hand was obtained and interpreted by me as negative. There is no fracture, subluxation or dislocation. There is no volar fat pad noted. There is no malalignment of the carpal bones. There is no abnormality specifically at the base of the fourth metacarpal bone. 08/03/20 13:39 Hand Min 3 Views [RAD] Stat - Medical Decision Making X-ray of the hand was obtained to evaluate for fracture versus contusion. ED Disposition - Plan for ED Patient: Disposition: Home or Assisted Living Diagnosis: Contusion of left hand, initial encounter Instructions: ED HAND CONTUSION Prescriptions: Ibuprofen 800 mg PO TID #10 tab Transmission Status: Pending to [facility] Referrals: Care Physician,No Primary [Primary Care Provider] - Christine Andrews [NON-STAFF] - 1 Week if not improving
== END 2020-08-03 14:22 | disposition home or self-care (01) ==
PROVIDERS: Emergency Provider Emergency Medicine
DX: S60.222A Contusion of left hand, initial encounter (principal); W19.XXXA Unspecified fall, initial encounter; Y93.9 Activity, unspecified; Y92.9 Unspecified place or not applicable; Y99.9 Unspecified external cause status; F17.200 Nicotine dependence, unspecified, uncomplicated; Z59.0 Homelessness
CPT/HCPCS: 73130; 99284

== ENCOUNTER → 2021-07-05 14:25 | Outpatient (CLI) | payer MEDICAID, SELFPAY ==
[2021-07-05 16:41] LABS: Absolute Lymphocyte Count 2.59 X10^3/uL (0.83-4.51); Basophil# 0.02 X10^3/uL; Basophil% 0.2 % (0-1); Eosinophil# 0.12 X10^3/uL; Eosinophils% 1.3 % (0-5); Hematocrit 46.2 % (40-54); Lymphocyte # 2.59 X10^3/ul (0.83-4.51); Lymphocyte % 27.7 % (19-41); Mean Corp Hgb Conc 32.5 g/dL (32-36); Mean Corpuscular Hgb 29.5 pg (27.0-32.0); Mean Corpuscular Volume 90.8 fL (80-94); Mean Platelet Vol. 10.1 fl (6.2-12.0); Monocyte# 0.58 X10^3/uL; Monocyte% 6.2 % (0-10); NRBC Flagged by Analyzer 0 % (0-5); Neutrophil # 5.98 X10^3/uL (2.7-7.7); Neutrophil % 64.1 % (47-70); Platelet Count 245 K/mm3 (150-450); RBC Distribution Width CV 11.9 % (11.6-14.6); RBC Distribution Width SD 39.8 fl (35.1-43.9); Red Blood Count 5.09 M/mm3 (4.6-6.2); White Blood Count 9.3 K/mm3 (4.4-11.0)
[2021-07-05 17:03] LABS: AST(SGOT) 113 U/L (15-37); Alanine Aminotransfer ALT/SGPT 94 U/L (16-61); Alkaline Phosphatase 103 U/L (45-117); Anion Gap 9 (5-15); BUN 16 mg/dL (7-18); BUN/Creat Ratio 17.9 RATIO (10-20); Calcium,Total 8.9 mg/dL (8.5-10.1); Chloride 106 mmol/L (98-107); Cholesterol 142 mg/dL (200); Creatinine, Serum 0.89 mg/dL (0.70-1.30); EST Glomerular Filtration Rate 105 mL/min (>60); Est Glom Filt Rate - Afr Amer 127 mL/min (>60); Free T3 4.1 pg/mL (2.18-3.98); Globulin 4.2 g/dL (2.2-4.2); Glucose 90 mg/dL (74-106); High Density Lipoprotein 51 mg/dL; Potassium 4.1 mmol/L (3.5-5.1); Protein, Total 8.2 g/dL (6.4-8.2); Sodium Level 140 mmol/L (136-145); T4 Free Direct 1.27 ng/dL (0.76-1.46); Thyroid Stim Hormone (TSH) 1.54 uIU/mL (0.358-3.74); Triglycerides 49 mg/dL; Very Low Density Lipoprotein 10 mg/dL (5-40)
[2021-07-05 17:04] LABS: Hemoglobin A1c 5.6 % (3.8-5.6)
[2021-07-06 11:46] LABS: Hepatitis B Surface Antigen Non-Reactive (Nonreactive); Hepatitis C Antibody Preliminary Reactive (Nonreactive); Vitamin D,25 Hydroxy 33.4 ng/mL
== END ==
PROVIDERS: PCP Internal Medicine; Referring Provider Internal Medicine; Visit Provider Internal Medicine
DX: Z13.220 Encounter for screening for lipoid disorders (principal); Z13.1 Encounter for screening for diabetes mellitus; F41.9 Anxiety disorder, unspecified; F19.10 Other psychoactive substance abuse, uncomplicated
CPT/HCPCS: 36415; 80053; 80061; 82306; 83036; 84439; 84443; 84481; 85025; 86803; 87340

== ENCOUNTER 2021-08-27 11:16 | Emergency (ER) | payer MEDICAID, SELFPAY ==
[2021-08-27 11:20] VITALS: BP 152/99; PULSE 98; RESP 18; TEMP 36.4; O2SAT 97; BMI 32.1
[2021-08-27 11:41] VITALS: BP 133/86; PULSE 88; RESP 27; TEMP 36.4; O2SAT 97
--- NOTE | 2021-08-27 11:48 | RAD_ITS ---
STUDY: X-RAY CHEST REASON FOR EXAM: Male, 31 years old. COUGH TECHNIQUE: Single AP portable view of the chest. COMPARISON: Comparison is made with prior study 04/27/2016. FINDINGS: EKG electrodes are seen. The lungs are clear and expanded. There is no demonstrated pleural abnormality. Normal size heart. Normal mediastinum and pearl. Normal visualized pulmonary arteries. Normal visualized aortic arch and descending thoracic aorta. The patient is status post intrapedicular screw and fransisco fixation. Normal visualized ribs, clavicles, and shoulders. There is no demonstrated abnormality of the visualized soft tissue structures of the upper abdomen. RAD/Chest 1 View (Portable) IMPRESSION: Normal x-ray examination of the chest. Electronically Signed: Lamont Umana MD at 12:20 EST , Service support ,
--- NOTE | 2021-08-27 12:33 | EDS_ITS ---
HPI History of Present Illness Chief Complaint: General Illness Narrative Narrative: 31-year-old male presenting with chief complaint of cough achiness, loss of taste and smell. He was vaccinated with a Gene & Gene Covid vaccine previously. He does not have a fever. He admits to chills. He is not short of breath. Patient states he does not have a significant medical history. [facility] Medical History Chronic headaches Drug abuse Home Medications NK 08/27/21 [History Last Taken Unknown] Allergy/AdvReac Type Severity Reaction Status Date / Time No Known Allergies Allergy Verified 07/05/21 13:26 Family History Aunt Depression Other Asthma CVA (cerebral vascular accident) Diabetes Heart disease Hypertension Mental disorder Surgical History back surgery 03/2010 Social History Smoking Status: Current every day smoker tobacco type: e-cigarettes Electronic Cigarette Use: without nicotine alcohol intake: never substance use type: former substance user 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 ROS ROS ED Constitutional Constitutional ED: Reports chills; Denies fever(s) Eyes Eyes: Denies blurry vision or diplopia ENT ENT ED: Denies rhinorrhea or sore throat Cardiovascular Cardiovascular: Reports chest pain Respiratory/Chest Respiratory/Chest: Reports cough; Denies dyspnea Gastrointestinal Gastrointestinal: Denies abdominal pain, nausea or vomiting Genitourinary Genitourinary ED: Denies dysuria or hematuria Musculoskeletal Musculoskeletal: Reports myalgias; Denies arthralgias or neck pain Integumentary Denies Abrasions or rash Neurologic Neurologic: Reports headache(s); Denies paresthesias or weakness EXAM Physical Exam Const Vital Signs: 08/27/21 11:20 08/27/21 11:37 08/27/21 11:41 Temperature 97.6 F L 97.6 F L Temperature Source Temporal Temporal Pulse Rate 98 88 Respiratory Rate 18 27 H Respiratory Effort Normal Non-Labored Respiratory Pattern Normal Blood Pressure 152/99 H 133/86 H Blood Pressure Mean 116 101 Pulse Ox 97 97 Oxygen Delivery Method Room Air Room Air Positive well nourished General Appearance ED: NAD HEENT Reports moist mucous membranes Negative for trauma Eyes PERRL and EOMs intact bilaterally Chest Wall inspection of chest normal Resp normal respiratory effort and clear to auscultation bilaterally GI normal to inspection, nondistended, normoactive bowel sounds Neuro oriented x3 and CN's II-XII intact bilaterally Sensorium / Orientation: alert Psych mental status grossly normal Skin no rashes or lesions noted MDM MDM MDM Narrative Medical decision making narrative: Patient presenting with viral symptoms. He has not had a fever. He states his chest is uncomfortable at times and he has been coughing. Chest pain does not sound cardiac in nature. I did check a chest x-ray which on my interpretation shows no acute cardiopulmonary process. He tested negative for COVID-19 today. He is counseled if he has new or worse adeline symptoms he can return for repeat testing. Otherwise he should quarantine himself. He is given return precautions if he is getting worse to return to the ER. Impression: 1. Viral syndrome Radiography Diagnostic Testing: Clinical Impression(s) from Imaging Studies Chest X-Ray 08/27/21 11:48 IMPRESSION: Normal x-ray examination of the chest. Electronically Signed: Lamont Umana MD at 12:20 EST , Service support , Discharge Plan Triage Chief Complaint: General Illness ED Provider: Tamir Cespedes Dx/Rx/DC Orders Instructions: ED Viral Syndrome (Adult) Prescriptions: No Action NK RF: 0 Primary Care Provider: Kyleigh Salcido Referrals: Kyleigh Salcido MD [Primary Care Provider] - Disposition Disposition: Home, Self Care
[2021-08-27 12:36] VITALS: BP 132/76; PULSE 68; RESP 15; TEMP 36.8; O2SAT 98
== END 2021-08-27 12:38 | disposition home or self-care (01) ==
PROVIDERS: Emergency Provider Student in an Organized Health Care Education/Training Program; PCP Internal Medicine
DX: B34.9 Viral infection, unspecified (principal); F17.290 Nicotine dependence, other tobacco product, uncomplicated
CPT/HCPCS: 71045; 87426; 99282

== ENCOUNTER 2021-10-04 21:25 | Emergency (ER) | payer MEDICAID, SELFPAY ==
[2021-10-04 21:29] VITALS: BP 142/89; PULSE 86; RESP 18; TEMP 37.4; O2SAT 96; BMI 33.5
--- NOTE | 2021-10-04 21:38 | EDS_ITS ---
HPI History of Present Illness Chief Complaint: General Illness Detail of Chief Complaint: Fever, cough, body aches, and not feeling well x3 days Informant: patient Narrative Narrative: [facility]. Patient states that he is not been feeling well for the last 3 days. Patient believes that there have been others at the [facility] with COVID-19. Patient is immunized with the Gene & Gene vaccine but has not had a booster. He does describe body aches and headache. Patient has a cough. Cough mostly nonproductive but at times bringing up some green sputum. Prior similar symptoms: No PFSH PFSH Medical History Chronic headaches Drug abuse Encounter for screening for COVID-19 Home Medications NK 08/27/21 [History Last Taken Unknown] Allergy/AdvReac Type Severity Reaction Status Date / Time No Known Allergies Allergy Verified 10/04/21 21:34 Family History Aunt Depression Other Asthma CVA (cerebral vascular accident) Diabetes Heart disease Hypertension Mental disorder Surgical History back surgery 03/2010 Social History Smoking Status: Current every day smoker tobacco type: cigarettes and e- cigarettes Electronic Cigarette Use: without nicotine alcohol intake: never substance use type: former substance user 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 ROS ROS ED Constitutional Constitutional ED: Reports systems reviewed and no addt'l complaints, except as documented, chills, fever(s) and sweats; Denies body ache(s) or change in weight Eyes Eyes: Denies acute decrease in peripheral vision, change in vision, double vision or loss of vision ENT ENT ED: Reports none and sore throat; Denies ear pain, lip swelling, loss taste/smell, neck pain or otalgia Cardiovascular Cardiovascular: Reports none; Denies abdominal pain, chest pain with activity, leg edema, lightheadedness, palpitations, rapid heart rate or syncope Respiratory/Chest Respiratory/Chest: Reports none and cough; Denies change in mental status, dry cough, dyspnea, hemoptysis, shortness of breath at rest or shortness of breath with exertion Gastrointestinal Gastrointestinal: Reports none; Denies abdominal pain, change in stool character, diarrhea, hematemesis, hematochezia, melena, rectal bleeding or vomiting Genitourinary Genitourinary ED: Reports none; Denies abdominal discomfort, anuria, dysuria, genital pain or polyuria Musculoskeletal Musculoskeletal: Reports none and myalgias; Denies arthralgias, back pain, difficulty walking, extremity pain or muscle weakness Integumentary Reports none; Denies abscess or rash Neurologic Neurologic: Reports none; Denies abnormal gait, confusion, focal weakness, frequent falls, headache(s), loss of vision, numbness, paresthesias, radicular pain, vertigo or weakness Psychiatric Psychiatric: Reports systems reviewed and no addt'l complaints, except as documented and none; Denies behavioral changes, confusion, difficulty concentrating, hallucinations, suicidal ideation, tactile hallucinations or visual hallucinations Endocrine Endocrinology: Denies none, cold intolerance, excessive sweating, fatigue or heat intolerance Hematologic/Lymphatic Hematologic/Lymphatic: Reports none; Denies anemia, easy bleeding or easy bruising Allergic/Immunologic Allergic/Immunologic ED: Denies as per HPI, none, lip swelling, mouth swelling, throat swelling, tongue swelling or hives EXAM Physical Exam Const Vital Signs: 10/04/21 21:29 10/04/21 21:34 Temperature 99.4 F H Temperature Source Oral Pulse Rate 86 Respiratory Rate 18 Respiratory Effort Normal Non-Labored Respiratory Pattern Normal Blood Pressure 142/89 H Blood Pressure Mean 106 Pulse Ox 96 Oxygen Delivery Method Room Air Positive well nourished and well developed General Appearance ED: well developed and NAD HEENT Reports TM's clear and moist mucous membranes normocephalic and atraumatic; Negative for trauma or tenderness Tympanic Membrane ED: Yes TM's clear Eyes PERRL and EOMs intact bilaterally General Eye ED: Negative for pale conjunctiva or scleral icterus Neck no lymphadenopathy, supple and no JVD General: Negative for tenderness Chest Wall inspection of chest normal and palpation of chest normal Chest: Negative for tenderness Resp normal respiratory effort and clear to auscultation bilaterally Effort and Inspection: Negative for respiratory distress or pain with movement Auscultation: Negative for rhonchi, wheezes or diminished lung sounds Cardio regular rate, regular rhythm, S1 normal heart sound, S2 normal heart sound and no murmurs Peripheral Pulses: pulses 2+ throughout GI normal to inspection, nondistended, normoactive bowel sounds, soft to palpation, non-tender, non-distended and no masses Back/Spine no CVA tenderness and no thoracic nor lumbar tenderness Extremity normal to inspection General Extremety ED: Negative for edema General Extremity: Negative for edema Neuro oriented x3, CN's II-XII intact bilaterally, no sensory deficits noted and gait normal Sensorium / Orientation: awake, alert, oriented to person, oriented to place and oriented to time Motor Exam: strength 5/5 throughout and strength abnormal Psych mental status grossly normal Skin no rashes or lesions noted and no wounds MDM MDM MDM Narrative Medical decision making narrative: Patient had a negative COVID test as well as negative influenza screen. Chest x-ray obtained was normal. At this point I suspect likely viral upper respiratory infection. Patient advised to follow-up with primary care physician incident response lead for no doc in 3 to 5 days. Patient to return if increasing shortness of breath or condition should worsen anyway. Lab Data Attestation: I reviewed the patient's lab results. Radiography Chest X-Ray - ED: 2 View Diagnostic Testing: Clinical Impression(s) from Imaging Studies Chest X-Ray 10/04/21 23:00 IMPRESSION: No evidence of acute cardiopulmonary process. at 2322 Reported and signed by: Johnathon Gamez MD Electronically Signed: Johnathon Gamez MD at 23:20 EST Tel , Service support , 2 view chest x-ray obtained interpreted by myself as no acute disease process. Radiology in agreement. Discharge Plan Triage Chief Complaint: General Illness ED Provider: Noa Dodge Dx/Rx/DC Orders Clinical Impression: Viral URI Instructions: ED URI, Viral, No Abx (Adult) Prescriptions: No Action NK RF: 0 Primary Care Provider: Care Physician,No Primary Referrals: Prudencio Dinh MD [NON-STAFF] - 3-5 Days Care Physician,No Primary [Primary Care Provider] - Disposition Disposition: Home, Self Care
--- NOTE | 2021-10-04 23:00 | RAD_ITS ---
HISTORY: cough EXAMINATION/TECHNIQUE: XR Chest 2 Views: COMPARISON: 08/27/2021 FINDINGS: LINES/DEVICES: None. LUNGS: No airspace consolidation. Unremarkable interstitium. No effusion. No pneumothorax. MEDIASTINUM: No cardiomegaly. MUSCULOSKELETAL: No acute osseous finding. Thoracolumbar fixation hardware partially seen without evidence of hardware failure within the study field of view. RAD/Chest PA and Lateral IMPRESSION: No evidence of acute cardiopulmonary process. at 2322 Reported and signed by: Johnathon Gamez MD Electronically Signed: Johnathon Gamez MD at 23:20 EST Tel , Service support ,
== END 2021-10-04 23:31 | disposition home or self-care (01) ==
PROVIDERS: Emergency Provider Emergency Medicine; Visit Provider Emergency Medicine
DX: J06.9 Acute upper respiratory infection, unspecified (principal); F17.210 Nicotine dependence, cigarettes, uncomplicated; F17.290 Nicotine dependence, other tobacco product, uncomplicated; Z20.822 Contact with and (suspected) exposure to COVID-19; Z59.01 Sheltered homelessness
CPT/HCPCS: 71046; 87426; 87804; 99282

== ENCOUNTER 2021-11-10 13:01 | Emergency (ER) | payer MEDICAID, SELFPAY ==
[2021-11-10 13:02] VITALS: BP 141/94; PULSE 111; RESP 20; TEMP 35.9; O2SAT 96; BMI 31.1
--- NOTE | 2021-11-10 14:10 | EX.ED.DYSGE1 ---
HPI History of Present Illness Chief Complaint: General Illness Informant: patient Narrative Narrative: Patient is here to be tested for Covid. He states he has runny nose sore throat and loss of taste or smell. He has a slight cough but is not at all short of breath. He has had soft stools but no real watery diarrhea. No abdominal pain. No nausea or vomiting. No fevers. He evidently did stay with a friend who now has been diagnosed with Covid. This patient symptoms all started yesterday. He did have a Gene & Gene vaccine about 6 months ago. [facility] Medical History Chronic headaches Drug abuse Encounter for screening for COVID-19 Home Medications NK 08/27/21 [History Last Taken Unknown] Allergy/AdvReac Type Severity Reaction Status Date / Time No Known Allergies Allergy Verified 11/10/21 13:04 Family History Aunt Depression Other Asthma CVA (cerebral vascular accident) Diabetes Heart disease Hypertension Mental disorder Surgical History back surgery 03/2010 Social History Smoking Status: Current every day smoker tobacco type: cigarettes and e-cigarettes Electronic Cigarette Use: without nicotine alcohol intake: never substance use type: former substance user 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 ROS ROS ED Constitutional Constitutional ED: Denies chills or fever(s) Eyes Eyes: Denies blurry vision ENT ENT ED: Reports rhinorrhea and sore throat Cardiovascular Cardiovascular: Denies chest pain, palpitations or racing heartbeat Respiratory/Chest Respiratory/Chest: Denies cough or dyspnea Gastrointestinal Gastrointestinal: Reports diarrhea; Denies abdominal pain, constipation, melena, nausea or vomiting Genitourinary Genitourinary ED: Denies dysuria Musculoskeletal Musculoskeletal: Denies arthralgias or myalgias Integumentary Denies rash Neurologic Neurologic: Denies headache(s) Psychiatric Psychiatric: Denies depression Endocrine Endocrinology: Denies polydipsia or polyuria Allergic/Immunologic Allergic/Immunologic ED: Denies urticaria EXAM Physical Exam Const Vital Signs: 11/10/21 13:02 Temperature 96.6 F L Temperature Source Temporal Pulse Rate 111 H Respiratory Rate 20 H Blood Pressure 141/94 H Blood Pressure Mean 109 Pulse Ox 96 Oxygen Delivery Method Room Air Positive well nourished and well developed Constitutional Narrative: Patient does have a tendency to pace around the room. But he is able to sit down and talk quietly. General Appearance ED: well developed and NAD; Negative for cyanotic or diaphoretic HEENT Reports moist mucous membranes HEENT Narrative: Oropharynx is clear. No dental tenderness. No exudates. Voice is normal. Eyes PERRL and EOMs intact bilaterally General Eye ED: Negative for pale conjunctiva or scleral icterus Neck supple Chest Wall inspection of chest normal Resp normal respiratory effort and clear to auscultation bilaterally Effort and Inspection: Negative for pain with movement Auscultation: Negative for rales, rhonchi or wheezes Cardio regular rate and regular rhythm GI normal to inspection, nondistended, normoactive bowel sounds and non-tender Palpation: soft Back/Spine no CVA tenderness Neuro oriented x3 Sensorium / Orientation: alert Psych Psych Narrative: Patient seems just mildly anxious. Mood & Affect: anxious Skin no rashes or lesions noted MDM MDM MDM Narrative Medical decision making narrative: Patient presents with some mild symptoms for COVID. No hypoxia. No chest pain. No dyspnea. We will order a Covid test and let him go home. Discharge Plan Triage Chief Complaint: General Illness ED Provider: Wyatt Rey Dx/Rx/DC Orders Clinical Impression: Close exposure to 2019-nCoV Instructions: Coronavirus Disease 2019 (COVID-19): Caring for Yourself or Others Prescriptions: No Action NK RF: 0 Primary Care Provider: Care Physician,No Primary Referrals: Alexei Sethi MD [STAFF PHYSICIAN] - 3-5 Days if not improving Care Physician,No Primary [Primary Care Provider] - Disposition Disposition: Home, Self Care
[2021-11-10 15:05] VITALS: PULSE 78; RESP 16; O2SAT 99
== END 2021-11-10 15:05 | disposition home or self-care (01) ==
LOC: ED 14:21
PROVIDERS: Emergency Provider Emergency Medicine; Visit Provider Emergency Medicine
DX: J02.9 Acute pharyngitis, unspecified (principal); R09.89 Other specified symptoms and signs involving the circulatory and respiratory systems; R43.8 Other disturbances of smell and taste; R05.9 Cough, unspecified; Z20.822 Contact with and (suspected) exposure to COVID-19; F17.210 Nicotine dependence, cigarettes, uncomplicated; F17.290 Nicotine dependence, other tobacco product, uncomplicated
CPT/HCPCS: 87426; 99282; A4216

== ENCOUNTER 2022-01-30 22:09 | Emergency (ER) | payer MEDICAID, SELFPAY ==
[2022-01-30 22:10] VITALS: BP 143/98; PULSE 91; RESP 20; TEMP 36.4; O2SAT 99; BMI 34.2
[2022-01-30 22:13] VITALS: O2SAT 95
--- NOTE | 2022-01-30 23:35 | RAD_ITS ---
STUDY: X-RAY - RIGHT SCAPULA REASON FOR EXAM: Male, 31 years old. trauma TECHNIQUE: 3 view(s) of the scapula were obtained. COMPARISON: None. FINDINGS: Normal scapula, including the osseous glenoid rim, acromion, scapular neck, spine, coracoid process, and visualized body. Normal glenohumeral articulation. Normal acromioclavicular joint. Normal visualized humeral head. Normal visualized pulmonary apex. There are postsurgical changes involving the dorsal spine. RAD/Scapula IMPRESSION: Normal plain film x-ray examination of the scapula. Electronically Signed: Barrett Pierson MD at 1:35 EDT ,
--- NOTE | 2022-01-30 23:36 | EDS_ITS ---
HPI HPI - Fall History of Present Illness Chief Complaint: Fall Informant: patient Narrative Narrative: Patient slipped and fell on fourth step of a porch about 2 hours ago. He hit the back of his right shoulder. He did not hit his head. He is not exhibiting back pain. He has pain behind his right shoulder. He is left-hand dominant. He has no chest pain or trouble breathing. No other injury. He has no numbness tingling weakness. He also requested no narcotics be used. Pressing on it makes it worse and holding it still makes it a little better. PFSH PFS Medical History Chronic headaches Drug abuse Encounter for screening for COVID-19 Home Medications naproxen 500 mg PO BID #14 tab 01/31/22 [Rx Last Taken Unknown] Allergy/AdvReac Type Severity Reaction Status Date / Time No Known Allergies Allergy Verified 11/10/21 13:04 Family History Aunt Depression Other Asthma CVA (cerebral vascular accident) Diabetes Heart disease Hypertension Mental disorder Surgical History back surgery 03/2010 Social History Smoking Status: Current every day smoker tobacco type: e-cigarettes Electronic Cigarette Use: without nicotine alcohol intake: never substance use type: former substance user 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 ROS ROS ED Constitutional Constitutional ED: Denies fever(s) Eyes Eyes: Denies blurry vision or diplopia ENT ENT ED: Denies rhinorrhea Cardiovascular Cardiovascular: Denies chest pain or palpitations Respiratory/Chest Respiratory/Chest: Denies cough or dyspnea Gastrointestinal Gastrointestinal: Denies nausea Musculoskeletal Musculoskeletal: Reports other Details: See history of present illness Integumentary Denies Abrasions Neurologic Neurologic: Denies paresthesias or weakness Hematologic/Lymphatic Hematologic/Lymphatic: Denies easy bleeding or easy bruising EXAM Physical Exam Const Vital Signs: 01/30/22 22:10 01/30/22 22:13 Temperature 97.5 F L Temperature Source Temporal Pulse Rate 91 Respiratory Rate 20 H Respiratory Effort Normal Respiratory Depth Normal Respiratory Pattern Normal Blood Pressure 143/98 H Blood Pressure Mean 113 Pulse Ox 99 95 Oxygen Delivery Method Room Air Room Air Positive well nourished and well developed General Appearance ED: well developed and NAD HEENT Reports normocephalic atraumatic Eyes PERRL Neck full ROM and supple General: Negative for tenderness Chest Wall inspection of chest normal and palpation of chest normal Chest Narrative: No subcu air. Resp normal respiratory effort and clear to auscultation bilaterally Auscultation: Negative for rales, rhonchi or wheezes Cardio regular rate and regular rhythm GI Palpation: soft Back/Spine Back/Spine Narrative: Patient has signs of significant dorsal spinal surgery. He has what sounds like Cerrato rods in place. But he has no tenderness on his spine. He does have some tenderness across the spine of the scapula on the right but no swelling bruising abrasion or visible contusion at this point. No crepitance Extremity Extremity Narrative: See above. Right posterior scapular tenderness.?Mild Psych mental status grossly normal Skin Lesions: no lesions Trauma: Negative for abrasion MDM MDM MDM Narrative Medical decision making narrative: I looked at the films and they were read by radiology as negative. We will give him Naprosyn ice and rest. Reasons to return were discussed. Radiography Diagnostic Testing: Clinical Impression(s) from Imaging Studies Scapula X-Ray 01/30/22 23:35 IMPRESSION: Normal plain film x-ray examination of the scapula. Electronically Signed: Barrett Pierson MD at 1:35 EDT Reading Location ID and State: [facility] / [place] Tel , Service support , Discharge Plan Triage Chief Complaint: Fall ED Provider: Wyatt Rey Dx/Rx/DC Orders Clinical Impression: Accidental fall on or from other stairs or steps, Contusion of right scapula Instructions: ED Back Contusion Prescriptions: New naproxen 500 MG tablet 500 mg PO BID Qty: 14 RF: 0 Primary Care Provider: Care Physician,No Primary Referrals: Joss Horton MD [STAFF PHYSICIAN] - 3-5 Days if not improving Care Physician,No Primary [Primary Care Provider] - Disposition Disposition: Home, Self Care
[2022-01-30] MEDS: Naproxen 500 MG Tablet PO (23:47)
[2022-01-31 02:03] VITALS: PULSE 72; RESP 16
== END 2022-01-31 02:04 | disposition home or self-care (01) ==
PROVIDERS: Emergency Provider Emergency Medicine; Visit Provider Emergency Medicine
DX: S40.011A Contusion of right shoulder, initial encounter (principal); W10.9XXA Fall (on) (from) unspecified stairs and steps, initial encounter; F17.290 Nicotine dependence, other tobacco product, uncomplicated; Z79.1 Long term (current) use of non-steroidal anti-inflammatories (NSAID)
CPT/HCPCS: 73010; 99284

== ENCOUNTER 2022-02-17 19:41 | Emergency (ER) | payer MEDICAID, SELFPAY ==
[2022-02-17 19:42] VITALS: BP 140/100; PULSE 93; RESP 19; TEMP 36.6; O2SAT 96; BMI 34.8
--- NOTE | 2022-02-17 19:53 | EKG12_ITS ---
Test Reason : CP Blood Pressure : / mmHG Vent. Rate : 090 BPM Atrial Rate : 090 BPM P-R Int : 146 ms QRS Dur : 100 ms QT Int : 338 ms P-R-T Axes : 064 -13 013 degrees QTc Int : 413 ms Normal sinus rhythm Normal ECG Confirmed by CRISTIANO MCDANIEL, LUIS MIGUEL ([id number]), book editor GAURANG GARNICA ([id number]) on 02/21/2022 12:54:18 PM Referred By: Confirmed By:LUIS MIGUEL QUINONEZ MD
[2022-02-17] MEDS: Aspirin 81 MG TAB.CHEW 324 MG PO (20:00)
--- NOTE | 2022-02-17 20:00 | RAD_ITS ---
STUDY: X-RAY CHEST REASON FOR EXAM: Male, 31 years old. chest pain TECHNIQUE: Single AP portable view of the chest. COMPARISON: 2. FINDINGS: The lungs are clear and expanded. There is no demonstrated pleural abnormality. Normal size heart. Normal mediastinum and pearl. Normal visualized pulmonary arteries. Normal visualized aortic arch and descending thoracic aorta. Spinal rods. Soft tissues and bony structures are otherwise unremarkable. RAD/Chest 1 View (Portable) IMPRESSION: Normal x-ray examination of the chest. Electronically Signed: Yuliana Metz MD at 21:00 EDT Reading Location ID and State: [id number] / Tel , Service support ,
[2022-02-17 20:02] LABS: Absolute Lymphocyte Count 2.54 X10^3/uL (0.83-4.51); Absolute Neutrophil Count 5.5 X10^3/uL (2.0-7.7); Basophil# 0.03 X10^3/uL; Basophil% 0.3 % (0-1); Eosinophil# 0.21 X10^3/uL; Eosinophils% 2.3 % (0-5); Hematocrit 48.8 % (40-54); Hemoglobin 16.3 g/dL (13.0-16.5); Lymphocyte # 2.54 X10^3/ul (0.83-4.51); Lymphocyte % 27.6 % (19-41); Mean Corp Hgb Conc 33.4 g/dL (32-36); Mean Corpuscular Volume 86.7 fL (80-94); Mean Platelet Vol. 10.2 fl (6.2-12.0); Monocyte# 0.85 X10^3/uL; Monocyte% 9.2 % (0-10); NRBC Flagged by Analyzer 0 % (0-5); Neutrophil # 5.48 X10^3/uL (2.7-7.7); Neutrophil % 59.7 % (47-70); Platelet Count 213 K/mm3 (150-450); RBC Distribution Width CV 12.7 % (11.6-14.6); RBC Distribution Width SD 40.2 fl (35.1-43.9); Red Blood Count 5.63 M/mm3 (4.6-6.2); White Blood Count 9.2 K/mm3 (4.4-11.0)
[2022-02-17 20:06] VITALS: BP 137/94; PULSE 86
[2022-02-17] MEDS: Nitroglycerin SL (ED/IMG/CATH) 0.4 MG TABLET SL ×3 (20:06→20:19)
[2022-02-17 20:12] VITALS: BP 137/85; PULSE 95
[2022-02-17 20:17] LABS: D-Dimer Quantitative (DVT/PE) 0.53 FEU/ug/m (0.27-0.49)
--- NOTE | 2022-02-17 20:18 | EDS_ITS ---
HPI History of Present Illness Chief Complaint: Chest Pain Informant: patient Onset/Context/Timing Onset: Today Activity at onset: sudden Timing: Continuous Quality: Positive for Sharp Location: Substernal and Left Chest Worsened By: Nothing Relieved By: Nothing Associated Symptoms: Positive for Diaphoresis, Dyspnea and Palpitations; Negative for Nausea, Vomiting, Cough, Fever, Lightheadedness and Acid Reflux Narrative Narrative: Patient presents with chest pain that began approximately 30 minutes prior to arrival. Patient states it is over the substernal area radiates to the left chest and left shoulder area. Patient states it also radiates into his back. Patient states nothing makes it better and nothing makes it worse. Patient states the pain is sharp. Patient states the pain has been constant. Patient admits to some diaphoresis when the pain began. Patient also admits to some shortness of breath and palpitations. Patient denies any nausea or vomiting. Patient denies any fevers or chills. CVD Risk Factors: Positive for Family History 1' </=55; Negative for Hyperte nsion, Diabetes, Hypercholesterolemia and Smoking PE Risk Factors: Negative for Recent Travel/Surgery, Recent Immobilization, Prior DVT or PE and Cancer [facility] Medical History Chronic headaches Drug abuse Encounter for screening for COVID-19 Home Medications naproxen 500 mg PO BID #14 tab 01/31/22 [Rx Last Taken Unknown] escitalopram oxalate 10 mg tablet 10 mg PO DAILY #30 tab 02/17/22 [Rx Last Taken Unknown] rivaroxaban [Xarelto] 15 mg PO BID #42 tablet 02/17/22 [Rx Last Taken Unknown] Allergy/AdvReac Type Severity Reaction Status Date / Time No Known Allergies Allergy Verified 02/17/22 19:42 Family History Aunt Depression Other Asthma CVA (cerebral vascular accident) Diabetes Heart disease Hypertension Mental disorder Surgical History back surgery 03/2010 Social History Smoking Status: Current every day smoker tobacco type: e-cigarettes Electronic Cigarette Use: without nicotine alcohol intake: never substance use type: former substance user 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 ROS ROS ED Constitutional Constitutional ED: Denies chills or fever(s) Eyes Eyes: Denies blurry vision or change in vision ENT ENT ED: Denies rhinorrhea or sore throat Cardiovascular Cardiovascular: Reports chest pain and palpitations Respiratory/Chest Respiratory/Chest: Reports dyspnea; Denies cough Gastrointestinal Gastrointestinal: Denies abdominal pain, nausea or vomiting Genitourinary Genitourinary ED: Denies dysuria or hematuria Musculoskeletal Musculoskeletal: Denies back pain or neck pain Integumentary Denies abscess or rash Neurologic Neurologic: Denies headache(s) or weakness Allergic/Immunologic Allergic/Immunologic ED: Denies mouth swelling or urticaria EXAM Physical Exam Const Vital Signs: 02/17/22 19:42 02/17/22 19:45 02/17/22 19:59 Temperature 97.8 F Temperature Source Temporal Pulse Rate 93 Respiratory Rate 19 H Respiratory Effort Short of Breath Labored Blood Pressure 140/100 H Blood Pressure Mean 113 Pulse Ox 96 Oxygen Delivery Method Room Air Room Air 02/17/22 20:06 02/17/22 20:12 02/17/22 20:19 Temperature Temperature Source Pulse Rate 86 95 99 Respiratory Rate Respiratory Effort Blood Pressure 137/94 H 137/85 H 133/79 H Blood Pressure Mean Pulse Ox Oxygen Delivery Method 02/17/22 21:53 Temperature Temperature Source Pulse Rate Respiratory Rate Respiratory Effort Blood Pressure Blood Pressure Mean Pulse Ox 95 Oxygen Delivery Method Room Air Positive well nourished, well developed and obese General Appearance ED: well developed and NAD Nutritional Appearance: obese HEENT normocephalic and atraumatic Eyes PERRL and EOMs intact bilaterally Neck supple and no JVD Chest Wall inspection of chest normal Chest: tenderness pectoral muscle left and sternum Resp normal respiratory effort and clear to auscultation bilaterally Effort and Inspection: Negative for respiratory distress Cardio regular rate, regular rhythm and no murmurs GI normal to inspection, nondistended, normoactive bowel sounds, soft to palpation, non-tender and non-distended Extremity normal to inspection General Extremety ED: Negative for edema or tenderness General Extremity: Negative for edema Neuro oriented x3, CN's II-XII intact bilaterally and no sensory deficits noted Sensorium / Orientation: awake and alert Motor Exam: strength 5/5 throughout Psych mental status grossly normal Heart Score History: Moderately Suspicious ECG: Normal Age: </= 45 years Risk Factors: 1 or 2 Risk Factors Troponin: </= Normal Limit Score: 2 MDM MDM MDM Narrative Medical decision making narrative: EKG was obtained. On my interpretation, it showed a normal sinus rhythm with a rate of 90. HI interval, QRS interval, and QTc intervals were all normal. [place] was normal. There are no acute ST or T wave changes. Portable 1 view chest x-ray was obtained. On my interpretation, lung michele are clear. There is normal cardiac silhouette. Bony thorax is normal. There is no acute process noted. Radiologist also interpreted the x- ray and agrees. CBC was within normal limits. Basic metabolic profile was within normal limits. High-sensitivity troponin was normal. D-dimer was slightly elevated at 0.53. Because of this, CTA of the chest was obtained. There is a right upper lobe and right lower lobe pulmonary embolus. Patient was given a dose of Xarelto here. Patient was given a prescription for Xarelto. Patient is hemodynamically stable and safe for discharge. Patient was instructed to follow-up with his primary care physician in 5 to 7 days. Patient was instructed on signs and symptoms which should prompt return to the emergency department. Patient understood and was agreeable with the plan. All questions were answered. Lab Data Attestation: I reviewed the patient's lab results. Labs: Laboratory Results - last 24 hr 02/17/22 02/17/22 02/17/22 19:49 19:49 19:49 WBC 9.2 RBC 5.63 Hgb 16.3 Hct 48.8 MCV 86.7 MCH 29.0 MCHC 33.4 RDW Std Deviation 40.2 RDW Coeff of Rita 12.7 Plt Count 213 MPV 10.2 Immature Gran % (Auto) 0.900 Neut % (Auto) 59.7 Lymph % (Auto) 27.6 [place] % (Auto) 9.2 Eos % (Auto) 2.3 Baso % (Auto) 0.3 Absolute Neuts (auto) 5.5 Absolute Lymphs (auto) 2.54 Nucleated RBC % 0 D-Dimer Quant (PE/DVT) 0.53 H* Sodium Cancelled Potassium Cancelled Chloride Cancelled Carbon Dioxide Cancelled Anion Gap Cancelled BUN Cancelled Creatinine Cancelled Estim Creat Clear Calc Cancelled Est GFR (MDRD) Af Amer Cancelled Est GFR (MDRD) Non-Af Cancelled BUN/Creatinine Ratio Cancelled Glucose Cancelled Calcium Cancelled Troponin I High Sens Cancelled 02/17/22 20:42 WBC RBC Hgb Hct MCV MCH MCHC RDW Std Deviation RDW Coeff of Rita Plt Count MPV Immature Gran % (Auto) Neut % (Auto) Lymph % (Auto) [place] % (Auto) Eos % (Auto) Baso % (Auto) Absolute Neuts (auto) Absolute Lymphs (auto) Nucleated RBC % D-Dimer Quant (PE/DVT) Sodium 138 Potassium 3.7 Chloride 107 Carbon Dioxide 25.0 Anion Gap 6 BUN 16 Creatinine 1.00 Estim Creat Clear Calc 112.95 Est GFR (MDRD) Af Amer 112 Est GFR (MDRD) Non-Af 92 BUN/Creatinine Ratio 16.1 Glucose 117 H Calcium 8.4 L Troponin I High Sens < 3 L Radiography Diagnostic Testing: Clinical Impression(s) from Imaging Studies Chest X-Ray 02/17/22 20:00 IMPRESSION: Normal x-ray examination of the chest. Electronically Signed: Yuliana Metz MD at 21:00 EDT Reading Location ID and State: [id number] / Tel , Service support , Chest CTA 02/17/22 20:22 IMPRESSION: Right upper lobe and right lower lobe artery embolus. Critical finding called and case discussed. Electronically Signed: Betnon Flanagan MD at 21:00 EDT , ADDENDUM: 02/17/222138 IMPRESSION: Right upper lobe and right lower lobe artery embolus. Critical finding called and case discussed. N.B. : The above Results were Read Back by Benton Flanagan MD to Dr. Sabas Corral DO, and understanding confirmed on 02/17/2022 21:33:05 (ET). Electronically Signed: Benton Flanagan MD at 21:00 EDT , EKG Initial EKG: Attestation: I personally reviewed and interpreted this EKG as follows: Interpretation: Sinus Rhythm (90) and No Acute Injury Pattern Prior EKG tracings: not available for review Prior: No Prior Discharge Plan Triage Chief Complaint: Chest Pain ED Provider: Sabas Corral Dx/Rx/DC Orders Clinical Impression: Pulmonary embolism, Chest pain Instructions: Pulmonary Embolism Prescriptions: New Xarelto 15 MG tablet 15 mg PO BID Qty: 42 RF: 0 No Action naproxen 500 MG tablet 500 mg PO BID Qty: 14 RF: 0 escitalopram oxalate [Lexapro] 10 mg tablet 10 mg PO DAILY Qty: 30 RF: 3 Primary Care Provider: Care Physician,No Primary Referrals: Sabas Brar MD [STAFF PHYSICIAN] - Care Physician,No Primary [Primary Care Provider] - Disposition Disposition: Home, Self Care
[2022-02-17 20:19] VITALS: BP 133/79; PULSE 99
--- NOTE | 2022-02-17 20:22 | CT_ITS ---
We are attempting to reach an attending provider to discuss findings. An addendum with communication details will be sent when the communication is complete. EXAM: CT ANGIOGRAPHY CHEST WITHOUT AND WITH INTRAVENOUS CONTRAST CLINICAL INDICATION: Elevated D-dimer SOB CHEST PAIN STABBING LT CHEST PAIN,PAIN LT BREAST AND LT ARM,ELEVATED BP TECHNIQUE: Helically acquired angiography images were obtained of the chest without and with intravenous contrast. This CT exam was performed using one or more of the following dose reduction techniques: automated exposure control, adjustment of the mA and/or kV according to patient size, and/or use of iterative reconstruction technique. This report was created using [employer] report Survata technology. MIP reconstructed images were created and reviewed. CONTRAST: IV 100mL Isovue-370 RADIATION DOSE: CTDIvol = 19.79 mGy, DLP = 508.49 mGy-cm COMPARISON: None. FINDINGS: PULMONARY ARTERIES: Unremarkable. Normal in caliber. No evidence of pulmonary embolism. AORTA: Unremarkable. Normal in caliber. No evidence of dissection. GREAT VESSELS OF AORTIC ARCH: Unremarkable. Normal in caliber. No evidence of dissection. LUNGS AND PLEURAL SPACES: Right upper lobe and right lower lobe artery embolus. No mass. No pleural effusion or thickening. No pneumothorax. HEART: Unremarkable. Heart size is normal. No pericardial effusion. No signs of right heart strain, ratio of right ventricle to left ventricle measures less than 1. MEDIASTINUM: Unremarkable. No mediastinal or hilar adenopathy. Esophagus is unremarkable. No hiatal hernia. THYROID: Unremarkable. No thyroid lesions. BONES/JOINTS: Thoracic fixation hardware noted. No suspicious lytic or blastic abnormality. CT/CTA Chest W/WO Contrast IMPRESSION: Right upper lobe and right lower lobe artery embolus. Critical finding called and case discussed. Electronically Signed: Benton Flanagan MD at 21:00 EDT ,
[2022-02-17 21:08] LABS: Anion Gap 6 (5-15); BUN 16 mg/dL (7-18); BUN/Creat Ratio 16.1 RATIO (10-20); Calcium,Total 8.4 mg/dL (8.5-10.1); Chloride 107 mmol/L (98-107); EST Glomerular Filtration Rate 92 mL/min (>60); Est Glom Filt Rate - Afr Amer 112 mL/min (>60); Estimated Creatinine Clearance 112.95 ml/min; Glucose 117 mg/dL (74-106); Potassium 3.7 mmol/L (3.5-5.1); Sodium Level 138 mmol/L (136-145); Troponin-I HS (w/2H Reflex) < 3 pg/mL (3.0-78.0)
[2022-02-17 21:53] VITALS: O2SAT 95
--- NOTE | 2022-02-17 21:53 | ED.RN ---
pt given number [phone] to call sg guerrero.
[2022-02-17] MEDS: Rivaroxaban 15 MG Tablet PO (22:16)
[2022-02-17 22:46] LABS: Reflex Troponin-HS? (from REC) Y
== END 2022-02-17 22:22 | disposition home or self-care (01) ==
PROVIDERS: Emergency Provider Emergency Medicine; Visit Provider Emergency Medicine
DX: I26.99 Other pulmonary embolism without acute cor pulmonale (principal); E78.00 Pure hypercholesterolemia, unspecified; E66.9 Obesity, unspecified; F17.290 Nicotine dependence, other tobacco product, uncomplicated
CPT/HCPCS: 71045; 71275; 80048; 84484; 85025; 85379; 93005; 99284; Q9967

== ENCOUNTER 2022-04-26 11:06 | Emergency (ER) | payer MEDICAID, SELFPAY ==
[2022-04-26 11:07] VITALS: PULSE 89; RESP 16; TEMP 36.7; O2SAT 95; BMI 36.3
[2022-04-26 11:22] VITALS: BP 140/80; PULSE 86; RESP 93; O2SAT 93
--- NOTE | 2022-04-26 11:42 | EKG12_ITS ---
Test Reason : CHEST PAIN Blood Pressure : / mmHG Vent. Rate : 090 BPM Atrial Rate : 090 BPM P-R Int : 130 ms QRS Dur : 084 ms QT Int : 332 ms P-R-T Axes : 043 -18 -05 degrees QTc Int : 406 ms Normal sinus rhythm Normal ECG Confirmed by DARIAN MCDANIEL, PEPPER ([id number]), digital editor GAURANG GARNICA ([id number]) on 04/29/2022 1:55:07 PM Referred By: B Confirmed By:PEPPER FARMER MD
--- NOTE | 2022-04-26 11:42 | RAD_ITS ---
HISTORY: chest pain. TECHNIQUE: XR Chest 1 View. COMPARISON: 10/04/2021. FINDINGS: CARDIOMEDIASTINAL BORDERS: Cardiac silhouette within normal limits in size. Mediastinal contour unremarkable. LUNGS: Radiographically clear. PLEURA: No pleural effusion or pneumothorax seen. OSSEOUS STRUCTURES: Thoracic spinal fixation hardware again seen. RAD/Chest 1 View (Portable) IMPRESSION: No acute cardiopulmonary process identified. Electronically Signed: Rhiannon Higuera MD at 12:07 EDT ,
[2022-04-26 11:55] LABS: Absolute Lymphocyte Count 2.23 X10^3/uL (0.83-4.51); Absolute Neutrophil Count 5.9 X10^3/uL (2.0-7.7); Basophil# 0.02 X10^3/uL; Basophil% 0.2 % (0-1); Eosinophils% 1.1 % (0-5); Hematocrit 44.6 % (40-54); Hemoglobin 15.5 g/dL (13.0-16.5); Lymphocyte # 2.23 X10^3/ul (0.83-4.51); Lymphocyte % 25.2 % (19-41); Mean Corp Hgb Conc 34.8 g/dL (32-36); Mean Corpuscular Hgb 29.8 pg (27.0-32.0); Mean Corpuscular Volume 85.6 fL (80-94); Mean Platelet Vol. 9.7 fl (6.2-12.0); Monocyte# 0.58 X10^3/uL; Monocyte% 6.5 % (0-10); NRBC Flagged by Analyzer 0 % (0-5); Neutrophil # 5.86 X10^3/uL (2.7-7.7); Neutrophil % 66.2 % (47-70); Platelet Count 235 K/mm3 (150-450); RBC Distribution Width CV 12.8 % (11.6-14.6); RBC Distribution Width SD 39.5 fl (35.1-43.9); Red Blood Count 5.21 M/mm3 (4.6-6.2); White Blood Count 8.9 K/mm3 (4.4-11.0)
[2022-04-26 12:14] LABS: Anion Gap 2 (5-15); BUN 12 mg/dL (7-18); BUN/Creat Ratio 14.3 RATIO (10-20); Chloride 107 mmol/L (98-107); Creatinine, Serum 0.84 mg/dL (0.70-1.30); EST Glomerular Filtration Rate 112 mL/min (>60); Est Glom Filt Rate - Afr Amer 136 mL/min (>60); Estimated Creatinine Clearance 134.46 ml/min; Glucose 110 mg/dL (74-106); Potassium 4.1 mmol/L (3.5-5.1); Sodium Level 137 mmol/L (136-145); Troponin-I HS 4 pg/mL (3.0-78.0)
--- NOTE | 2022-04-26 12:23 | CT_ITS ---
HISTORY: Chest pain, prior history of pulmonary emboli. TECHNIQUE: CT angiogram of the chest was performed after the intravenous administration of 100 mL Isovue-370. Post-processing of the angiographic images was performed with multiplanar reformation and 3D reconstruction. Individualized dose optimization techniques were used for this CT. 1488 images. COMPARISON: XRT same-day. FINDINGS: CENTRAL AIRWAYS: Patent. LUNGS: Minimal dependent lower lobe atelectasis. PLEURA: No pneumothorax or significant pleural effusion. HEART/PERICARDIUM: Heart within normal limits in size. No pericardial effusion. PULMONARY ARTERIES: No filling defect. AORTA/VESSELS: No thoracic aortic aneurysm or dissection flap. MEDIASTINUM/JAZMINE: No pathologically enlarged lymph nodes. OSSEOUS STRUCTURES: Thoracolumbar spinal fixation hardware in place. UPPER ABDOMEN: Small calcified gallstones. Fatty liver. CT/CTA Chest W/WO Contrast IMPRESSION: No evidence of pulmonary embolism. Cholelithiasis. Hepatic steatosis. Electronically Signed: Rhiannon Higuera MD at 12:57 EDT ,
[2022-04-26 13:12] VITALS: BP 143/100; PULSE 96; RESP 18; O2SAT 100
[2022-04-26 13:24] VITALS: BP 135/93; PULSE 92; RESP 26; O2SAT 96
--- NOTE | 2022-04-26 17:12 | ED.VIS.CHEST ---
HPI History of Present Illness Chief Complaint: Chest Pain Informant: patient Onset/Context/Timing Onset: Today Activity at onset: sudden Timing: Continuous Quality: Positive for Sharp Location: Left Chest Worsened By: Nothing Relieved By: Nothing Associated Symptoms: Positive for Diaphoresis, Dyspnea, Lightheadedness and Palpitations; Negative for Nausea, Vomiting, Cough, Fever or Acid Reflux Narrative Narrative: StayPatient presents with chest pain that began today. She was remaining at 180 when he started having pain in his chest. Patient states it is over the left chest. Patient states it is sharp. Patient states he has a history of pulmonary embolism and the pain is somewhat similar to that but not as severe. Patient admits to some shortness of breath and diaphoresis with the pain. Patient also admits to some lightheadedness. Patient states nothing makes the pain better nothing makes it worse. Patient admits to some subjective chills. CVD Risk Factors: Negative for Hypertension, Diabetes, Hypercholesterolemia or Family History 1' </=55 PE Risk Factors: Positive for Prior DVT or PE; Negative for Recent Travel/Surgery, Recent Immobilization, Cancer or OCP + Smoking + >/=35 PFSH PFSH Medical History Chronic headaches Drug abuse Encounter for screening for COVID-19 History of blood clots Home Medications escitalopram oxalate 10 mg tablet (Lexapro) 10 mg PO DAILY #30 tabs 02/17/22 [Rx Last Taken Unknown] rivaroxaban 15 mg tablet (Xarelto) 15 mg PO BID #42 TABLETS 02/17/22 [Rx Last Taken Unknown] Allergy/AdvReac Type Severity Reaction Status Date / Time No Known Allergies Allergy Verified 04/26/22 11:20 Family History Aunt Depression Other Asthma CVA (cerebral vascular accident) Diabetes Heart disease Hypertension Mental disorder Surgical History back surgery 03/2010 Social History Smoking Status: Current every day smoker tobacco type: e-cigarettes Electronic Cigarette Use: without nicotine alcohol intake: never substance use type: former substance user 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 ROS ROS ED Constitutional Constitutional ED: Reports chills and subjective; Denies fever(s) Eyes Eyes: Denies blurry vision or change in vision ENT ENT ED: Denies rhinorrhea or sore throat Cardiovascular Cardiovascular: Reports chest pain and palpitations Respiratory/Chest Respiratory/Chest: Reports dyspnea; Denies cough Gastrointestinal Gastrointestinal: Denies abdominal pain, nausea or vomiting Genitourinary Genitourinary ED: Denies dysuria or hematuria Musculoskeletal Musculoskeletal: Reports back pain; Denies neck pain Integumentary Denies abscess or rash Neurologic Neurologic: Denies headache(s) or weakness Allergic/Immunologic Allergic/Immunologic ED: Denies mouth swelling or urticaria EXAM Physical Exam Const Vital Signs: 04/26/22 11:07 04/26/22 11:22 04/26/22 11:33 Temperature 98.1 F Temperature Source Temporal Pulse Rate 89 86 Respiratory Rate 16 93 H Blood Pressure 140/80 H Blood Pressure Mean 100 Pulse Ox 95 93 Oxygen Delivery Method Room Air Room Air Room Air 04/26/22 11:42 04/26/22 13:12 04/26/22 13:24 Temperature Temperature Source Pulse Rate 96 92 Respiratory Rate 18 26 H Blood Pressure 143/100 H 135/93 H Blood Pressure Mean 114 Pulse Ox 100 96 Oxygen Delivery Method Room Air Positive well nourished, well developed and obese General Appearance ED: well developed and NAD Nutritional Appearance: obese HEENT Reports moist mucous membranes normocephalic and atraumatic Eyes PERRL and EOMs intact bilaterally Neck supple and no JVD Chest Wall palpation of chest normal Resp normal respiratory effort and clear to auscultation bilaterally Effort and Inspection: Negative for respiratory distress Cardio regular rate, regular rhythm and no murmurs GI normal to inspection, nondistended, normoactive bowel sounds, soft to palpation, non-tender and non-distended Extremity normal to inspection General Extremety ED: Negative for edema or tenderness General Extremity: Negative for edema Neuro oriented x3, CN's II-XII intact bilaterally and no sensory deficits noted Sensorium / Orientation: awake and alert Motor Exam: strength 5/5 throughout Psych mental status grossly normal Heart Score History: Moderately Suspicious ECG: Normal Age: </= 45 years Risk Factors: No Risk Factors Troponin: </= Normal Limit Score: 1 MDM MDM MDM Narrative Medical decision making narrative: EKG was obtained. On my interpretation, it showed a normal sinus rhythm with a rate of 90. SC interval, QRS interval, and QTc intervals were all normal. [place] was normal. There are no acute ST or T wave changes. CBC was within normal limits. Basic metabolic profile was within normal limits. High-sensitivity troponin was normal. Portable 1 view chest x-ray was obtained. On my interpretation, lung michele are clear. There is normal cardiac silhouette. Bony thorax is normal. There is no acute process noted. Radiologist also interpreted the x-ray and agrees. With the patient's history of prior pulmonary embolism, CTA of the chest was obtained. There is no evidence of pulmonary embolism. Patient was advised of his findings. Patient has a HEART score of 1. Patient was advised that this is low risk for acute cardiac event. Patient was instructed to follow-up with his primary care physician in 5 to 7 days. Patient understood and was agreeable with the plan. All questions were answered. Lab Data Attestation: I reviewed the patient's lab results. Labs: Laboratory Results - last 24 hr 04/26/22 04/26/22 11:40 11:40 WBC 8.9 RBC 5.21 Hgb 15.5 Hct 44.6 MCV 85.6 MCH 29.8 MCHC 34.8 RDW Std Deviation 39.5 RDW Coeff of Rita 12.8 Plt Count 235 MPV 9.7 Immature Gran % (Auto) 0.800 Neut % (Auto) 66.2 Lymph % (Auto) 25.2 [place] % (Auto) 6.5 Eos % (Auto) 1.1 Baso % (Auto) 0.2 Absolute Neuts (auto) 5.9 Absolute Lymphs (auto) 2.23 Nucleated RBC % 0 Sodium 137 Potassium 4.1 Chloride 107 Carbon Dioxide 28.0 Anion Gap 2 L BUN 12 Creatinine 0.84 Estim Creat Clear Calc 134.46 Est GFR (MDRD) Af Amer 136 Est GFR (MDRD) Non-Af 112 BUN/Creatinine Ratio 14.3 Glucose 110 H Calcium 9.0 Troponin I High Sens 4 Radiography Chest X-Ray - ED: 1 View, Read by ED Physician, Read by Radiologist and No Acute Disease CTA PE Study: No Evidence of PE and No Evidence of Dissection Diagnostic Testing: Clinical Impression(s) from Imaging Studies Chest X-Ray 04/26/22 11:42 IMPRESSION: No acute cardiopulmonary process identified. Electronically Signed: Rhiannon Higuera MD at 12:07 EDT , Chest CTA 04/26/22 12:23 IMPRESSION: No evidence of pulmonary embolism. Cholelithiasis. Hepatic steatosis. Electronically Signed: Rhiannon Higuera MD at 12:57 EDT , EKG Initial EKG: Attestation: I personally reviewed and interpreted this EKG as follows: Interpretation: Sinus Rhythm (90) and No Acute Injury Pattern Prior EKG tracings: available for review Prior: Unchanged (02/17/2022) Discharge Plan Triage Chief Complaint: Chest Pain ED Provider: Sabas Corral Dx/Rx/DC Orders Clinical Impression: Chest pain of uncertain etiology, Anxiety Instructions: ED Chest Pain, Uncertain Cause Prescriptions: No Action Xarelto 15 MG tablet 15 mg PO BID Qty: 42 0RF escitalopram oxalate [Lexapro] 10 mg tablet 10 mg PO DAILY Qty: 30 3RF Primary Care Provider: Kyleigh Salcido Referrals: Kyleigh Salcido MD [Primary Care Provider] - 5-7 Days Disposition Disposition: Home, Self Care Discharge Date/Time: 04/26/22 13:28
== END 2022-04-26 13:28 | disposition home or self-care (01) ==
PROVIDERS: Emergency Provider Emergency Medicine; PCP Internal Medicine; Visit Provider Emergency Medicine
DX: R07.9 Chest pain, unspecified (principal); F41.9 Anxiety disorder, unspecified; E66.9 Obesity, unspecified; F17.290 Nicotine dependence, other tobacco product, uncomplicated; Z68.36 Body mass index [BMI] 36.0-36.9, adult; Z86.711 Personal history of pulmonary embolism; Z82.79 Family history of other congenital malformations, deformations and chromosomal abnormalities
CPT/HCPCS: 71045; 71275; 80048; 84484; 85025; 93005; 99285; Q9967; A4216

== ENCOUNTER 2022-07-26 09:10 | Emergency (ER) | payer MEDICAID, SELFPAY ==
[2022-07-26 09:11] VITALS: BP 143/93; PULSE 113; RESP 22; TEMP 37.3; O2SAT 97; BMI 33.6
--- NOTE | 2022-07-26 09:26 | EDS_ITS ---
HPI History of Present Illness Chief Complaint: Sore Throat Narrative Narrative: Patient presents with sore throat for the past day, no fevers or chills, he has upper respiratory symptoms rhinorrhea and a cough. He has some muscle aches. [facility] Medical History Chronic headaches Drug abuse Encounter for screening for COVID-19 History of blood clots Home Medications escitalopram oxalate 10 mg tablet (Lexapro) 10 mg PO DAILY #30 tabs 02/17/22 [Rx Last Taken Unknown] rivaroxaban 15 mg tablet (Xarelto) 15 mg PO BID #42 TABLETS 02/17/22 [Rx Last Taken Unknown] benzonatate 100 mg capsule 100 mg PO BID PRN cough #10 caps 07/26/22 [Rx Last Taken Unknown] naproxen 500 mg tablet (Naprosyn) 500 mg PO BID PRN pain #10 tabs 07/26/22 [Rx Last Taken Unknown] Allergy/AdvReac Type Severity Reaction Status Date / Time No Known Allergies Allergy Verified 07/26/22 09:11 Family History Aunt Depression Other Asthma CVA (cerebral vascular accident) Diabetes Heart disease Hypertension Mental disorder Surgical History back surgery 03/2010 Social History Smoking Status: Current every day smoker tobacco type: e-cigarettes Electronic Cigarette Use: without nicotine alcohol intake: never substance use type: former substance user 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 ROS ROS ED ROS Narrative Past medical history: Reviewed, unremarkable Medications: Reviewed Social history: Noncontributory Review of systems: All systems negative except as indicated General: No fever Eyes: No visual changes ENT: As in HPI Neck: No neck pain Cardiovascular: No chest pain Respiratory: No shortness of breath or cough Gastrointestinal: No abdominal pain, nausea vomiting or diarrhea Genitourinary: No dysuria Musculoskeletal: Some myalgias myalgias, no difficulty with ambulation Skin: No rash Neurological: No memory loss, confusion or any focal weakness Psych: No recent behavioral changes Hematologic: No easy bleeding or easy bruising EXAM Physical Exam Narrative Exam Narrative: Physical exam General: Well nourished, Well developed, No Acute Distress. He appears relatively comfortable in the bed. Head: Normocephalic, Atraumatic Eyes: Conjunctiva not pale ENT: Moist mucous membranes, no signs of dehydration. Posterior pharyngeal erythema but mostly postnasal drip. Normal soft palate no exudates. He has rhinorrhea and swollen nasal turbinates. He has a normal voice. Neck: Supple, Nontender, No lymphadenopathy Cardiovascular: Regular rate, Regular rhythm Respiratory: No distress, CTA bilaterally Abdomen: Soft, Nontender, Nondistended Back: Nontender, Normal Inspection. Negative for: CVA tenderness Extremities: Nontender, No edema Skin: Normal color, No rash Neurological: Alert, Normal Strength, Normal Sensation Psychological: Normal affect Const Vital Signs: 07/26/22 09:11 Temperature 99.2 F H Temperature Source Temporal Pulse Rate 113 H Respiratory Rate 22 H Blood Pressure 143/93 H Blood Pressure Mean 109 Pulse Ox 97 Oxygen Delivery Method Room Air MDM MDM MDM Narrative Medical decision making narrative: Centor is 0. Patient has an upper respiratory infection that appears well. I will discharge with symptomatic treatment I will test for COVID and influenza but the patient can look up results at home Discharge Plan Triage Chief Complaint: Sore Throat ED Provider: Kevin Starkey Dx/Rx/DC Orders Clinical Impression: Acute upper respiratory infection, Acute viral syndrome Instructions: ED Viral Syndrome (Adult) Prescriptions: New naproxen [Naprosyn] 500 mg tablet 500 mg PO BID PRN (Reason: pain) Qty: 10 0RF benzonatate 100 mg capsule 100 mg PO BID PRN (Reason: cough) Qty: 10 0RF No Action Xarelto 15 MG tablet 15 mg PO BID Qty: 42 0RF escitalopram oxalate [Lexapro] 10 mg tablet 10 mg PO DAILY Qty: 30 3RF Stand Alone Forms: ED Work / School Excuse Primary Care Provider: Kyleigh Salcido Referrals: Kyleigh Salcido MD [Primary Care Provider] - 2 Days Disposition Disposition: Home, Self Care
== END 2022-07-26 09:47 | disposition home or self-care (01) ==
LOC: ED 09:45
PROVIDERS: Emergency Provider Emergency Medicine; PCP Internal Medicine; Visit Provider Emergency Medicine
DX: J06.9 Acute upper respiratory infection, unspecified (principal); B34.9 Viral infection, unspecified; F17.290 Nicotine dependence, other tobacco product, uncomplicated
CPT/HCPCS: 87428; 99282

== ENCOUNTER 2022-08-08 11:54 | Emergency (ER) | payer MEDICAID, SELFPAY ==
[2022-08-08 11:54] VITALS: BP 141/88; PULSE 101; RESP 18; TEMP 36.6; O2SAT 97; BMI 33.4
--- NOTE | 2022-08-08 14:29 | EDS_ITS ---
HPI HPI - Fall History of Present Illness Chief Complaint: Fall Narrative Narrative: 32-year-old male past medical history of previous low back surgery secondary to something like scoliosis presents status post fall that he sustained yesterday. He states he was walking and tripped over some wire. He fell to the ground onto his left shoulder. He now has left shoulder pain that is worse with certain movements and describes low back pain. He denies any fever or chills, no saddle anesthesia, no loss of bowel or bladder, no radiation to his leg. He took aspirin without relief. He does not want to claim Worker's Comp. for this, but he states he was told that when he went to work today to get checked out at the hospital, and come back to work tomorrow. He presents mainly because of low back pain. He denies other injury. No hitting of his head or loss of consciousness, no neck pain. [facility] Medical History Chronic headaches Drug abuse Encounter for screening for COVID-19 History of blood clots Home Medications rivaroxaban 15 mg tablet (Xarelto) 15 mg PO BID #42 TABLETS 02/17/22 [Rx Last Taken Unknown] benzonatate 100 mg capsule 100 mg PO BID PRN cough #10 caps 07/26/22 [Rx Last Taken Unknown] naproxen 500 mg tablet (Naprosyn) 500 mg PO BID PRN pain #10 tabs 07/26/22 [Rx Last Taken Unknown] escitalopram oxalate 10 mg tablet (Lexapro) 10 mg PO DAILY #90 tabs 07/28/22 [Rx Last Taken Unknown] Allergy/AdvReac Type Severity Reaction Status Date / Time No Known Allergies Allergy Verified 07/26/22 09:11 Family History Aunt Depression Other Asthma CVA (cerebral vascular accident) Diabetes Heart disease Hypertension Mental disorder Surgical History back surgery 03/2010 Social History Smoking Status: Current every day smoker tobacco type: cigarettes and e- cigarettes Electronic Cigarette Use: without nicotine alcohol intake: never substance use type: former substance user 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 ROS ROS ED ROS Narrative Constitutional: No fever, no chills. HEENT: No sore throat. No neck pain. No loss of vision. No rhinorrhea. Cardiovascular: No chest pain. No palpitations. No pedal edema. Respiratory: No cough, no shortness of breath. Abdominal: No abdominal pain. No nausea. No vomiting. Genitourinary: No dysuria. No hematuria. Musculoskeletal: No myalgias. Left shoulder pain, worse with movement. Midline to diffuse low back pain. Neurologic: No headaches. No dizziness. No lightheadedness. No saddle anesthesia, no loss of bowel or bladder. No radicular symptoms. Skin: No rash. No change in color. Psychiatric: No depression. No anxiety. EXAM Physical Exam Narrative Exam Narrative: Afebrile. Vital signs noted. GCS 15. ABCs are intact. HEENT: Normocephalic. Atraumatic. PERRL, EOMI. Neck soft and supple. No point tenderness or step off. Cardiovascular: Regular rate and rhythm. No murmurs, rubs, or gallops appreciated. Respiratory: No tachypnea. Lungs clear to auscultation bilaterally. Gastrointestinal: Abdomen soft, nontender, with normoactive bowel sounds. No rebound or guarding. Neurological: Awake. Alert. Nonfocal, nonlateralizing. Straight leg raising negative bilaterally. Skin: No rash. Normal color. No pallor. Musculoskeletal: No pedal edema. Full range of motion extremities. No evidence of dislocation of left shoulder. Diffuse tenderness, minimal. Neurovascular intact distally with palpable radial pulse. No scapular tenderness. No vertebral point tenderness of lumbar spine, no step-off. Const Vital Signs: 08/08/22 11:54 08/08/22 13:54 08/08/22 15:22 Temperature 97.8 F Temperature Source Temporal Pulse Rate 101 H 77 Respiratory Rate 18 15 Respiratory Effort Normal Respiratory Depth Normal Respiratory Pattern Normal Blood Pressure 141/88 H Blood Pressure Mean 105 Pulse Ox 97 99 Oxygen Delivery Method Room Air Room Air MDM MDM MDM Narrative Medical decision making narrative: I do not feel x-rays of his shoulder are indicated. I feel he has more of a left shoulder contusion after fall. Given his history of previous back surgery, x-rays were obtained of the lumbar spine. He was administered ibuprofen 800 mg orally for analgesia. X-rays interpreted by myself show postsurgical changes but no evidence of an acute fracture. At this point in time, I feel he can be discharged safely home to continue [id number] analgesics as needed. He did state that he was on Xarelto so I suggested that he not take aspirin or NSAIDs. He was given a note to be off work today and return tomorrow. Return instructions were reviewed. Disposition is discharged home in stable condition. Radiography Diagnostic Testing: Clinical Impression(s) from Imaging Studies Lumbar Spine X-Ray 08/08/22 14:45 IMPRESSION: No acute bone or joint abnormality. Postop changes. Electronically Signed: Mp Sanchez MD at 15:13 EST , Discharge Plan Triage Chief Complaint: Fall ED Provider: Harrison Lozano Dx/Rx/DC Orders Clinical Impression: Fall, Contusion of left shoulder, Lumbar strain Instructions: ED Back Sprain/Strain, ED Mechanical Fall, ED Shoulder Contusion Prescriptions: No Action Xarelto 15 MG tablet 15 mg PO BID Qty: 42 0RF naproxen [Naprosyn] 500 mg tablet 500 mg PO BID PRN (Reason: pain) Qty: 10 0RF benzonatate 100 mg capsule 100 mg PO BID PRN (Reason: cough) Qty: 10 0RF escitalopram oxalate [Lexapro] 10 mg tablet 10 mg PO DAILY Qty: 90 3RF Stand Alone Forms: ED Work / School Excuse Primary Care Provider: Kyleigh Salcido Referrals: Kyleigh Salcido MD [Primary Care Provider] - 3-5 Days if not improving Disposition Disposition: Home, Self Care Discharge Date/Time: 08/08/22 15:33
[2022-08-08] MEDS: Ibuprofen 400 MG Tablet 800 MG PO (14:35)
--- NOTE | 2022-08-08 14:45 | RAD_ITS ---
EXAM: XR LUMBOSACRAL SPINE, 2 OR 3 VIEWS CLINICAL INDICATION: pain TECHNIQUE: Frontal and lateral views of the lumbar spine and sacrum. This report was created using [employer] report generation technology. COMPARISON: None. FINDINGS: VERTEBRAE: Loss of the normal lumbar lordosis which may represent muscle spasm or changes related to the spinal fusion. Interpedicular screws noted at the L1, L2 and L3 levels as well as visualized thoracic spine. Preserved vertebral body height. No fracture. No spondylolisthesis. No significant facet arthropathy. DISC SPACES: No acute findings. Disc spaces are maintained. RAD/Lumbar Spine 2 or 3 Views IMPRESSION: No acute bone or joint abnormality. Postop changes. Electronically Signed: Mp Sanchez MD at 15:13 EST ,
[2022-08-08 15:22] VITALS: PULSE 77; RESP 15; O2SAT 99
== END 2022-08-08 15:33 | disposition home or self-care (01) ==
PROVIDERS: Emergency Provider Emergency Medicine; PCP Internal Medicine; Visit Provider Emergency Medicine
DX: S39.012A Strain of muscle, fascia and tendon of lower back, initial encounter (principal); S40.012A Contusion of left shoulder, initial encounter; W18.09XA Striking against other object with subsequent fall, initial encounter; Y93.01 Activity, walking, marching and hiking; F17.210 Nicotine dependence, cigarettes, uncomplicated; F17.290 Nicotine dependence, other tobacco product, uncomplicated; Z79.01 Long term (current) use of anticoagulants; Z79.899 Other long term (current) drug therapy
CPT/HCPCS: 72100; 99283

== ENCOUNTER 2022-09-26 15:15 | Emergency (ER) | payer MEDICAID, SELFPAY ==
[2022-09-26 15:16] VITALS: BP 153/94; PULSE 105; RESP 22; TEMP 36.8; O2SAT 99; BMI 34.8
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
[2022-09-26 16:45] LABS: Absolute Lymphocyte Count 1.84 X10^3/uL (0.83-4.51); Absolute Neutrophil Count 9.3 X10^3/uL (2.0-7.7); Basophil# 0.02 X10^3/uL; Basophil% 0.2 % (0-1); Eosinophils% 0.8 % (0-5); Hematocrit 44.4 % (40-54); Hemoglobin 14.3 g/dL (13.0-16.5); Lymphocyte # 1.84 X10^3/ul (0.83-4.51); Lymphocyte % 15.4 % (19-41); Mean Corp Hgb Conc 32.2 g/dL (32-36); Mean Corpuscular Hgb 28.4 pg (27.0-32.0); Mean Corpuscular Volume 88.3 fL (80-94); Mean Platelet Vol. 10.1 fl (6.2-12.0); Monocyte# 0.58 X10^3/uL; Monocyte% 4.9 % (0-10); NRBC Flagged by Analyzer 0 % (0-5); Neutrophil # 9.34 X10^3/uL (2.7-7.7); Neutrophil % 78.2 % (47-70); Platelet Count 249 K/mm3 (150-450); RBC Distribution Width CV 12.7 % (11.6-14.6); RBC Distribution Width SD 41.2 fl (35.1-43.9); Red Blood Count 5.03 M/mm3 (4.6-6.2); White Blood Count 11.9 K/mm3 (4.4-11.0)
[2022-09-26 17:01] LABS: Alcohol, Blood (Medical)-Serum < 3.0 mg/dL
[2022-09-26 17:06] LABS: AST(SGOT) 23 U/L (15-37); Alanine Aminotransfer ALT/SGPT 55 U/L (16-61); Albumin, Serum 3.6 g/dL (3.2-5.0); Alkaline Phosphatase 94 U/L (45-117); Anion Gap 6 (5-15); BUN 11 mg/dL (7-18); BUN/Creat Ratio 13.1 RATIO (10-20); Calcium,Total 8.5 mg/dL (8.5-10.1); Chloride 108 mmol/L (98-107); Creatinine, Serum 0.84 mg/dL (0.70-1.30); EST Glomerular Filtration Rate 112 mL/min (>60); Est Glom Filt Rate - Afr Amer 136 mL/min (>60); Estimated Creatinine Clearance 133.22 ml/min; Globulin 3.6 g/dL (2.2-4.2); Glucose 120 mg/dL (74-106); Potassium 4.1 mmol/L (3.5-5.1); Protein, Total 7.2 g/dL (6.4-8.2); Sodium Level 139 mmol/L (136-145)
[2022-09-26 17:11] VITALS: RESP 16
[2022-09-26 17:12] LABS: Amphetamine Urine VISTA POSITIVE (<1000 ng/mL); Barbiturate Urine VISTA NEGATIVE (< 200 ng/mL); Benzodiazepine Urine VISTA NEGATIVE (< 200 ng/mL); Cocaine Urine VISTA NEGATIVE (< 300 ng/mL); Ecstacy Urine VISTA NEGATIVE (< 500 ng/mL); Methadone Urine VISTA NEGATIVE (< 300 ng/mL); PCP Urine VISTA NEGATIVE (< 25 ng/mL); THC Urine VISTA POSITIVE (< 50 ng/mL); Vista UDS pH Range 5
--- NOTE | 2022-09-26 18:22 | ED.RN ---
[id number] otto then sw. pt not alone during this time
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
--- NOTE | 2022-09-26 20:46 | CM.ED ---
Addendum entered by Tamara Keating 09/27/22 11:15: TANIA Note SW attempted to contact patient's counselor to update him on patient's placement at the phone number provided yesterday ([phone]) per patient's request, however, it kept ringing busy. Unable to leave a voicemail. TANIA received a call from Norberto with [facility] inquiring about patient's placement. TANIA informed him patient was accepted at [facility] in [place] and left today 09/27/22 around 3am per nursing notes. KALEN Faulkner Original Note: TANIA Note TANIA sent referral to [facility]. TANIA updated RN and inspector process of referral. TANIA contacted [facility] to inform them of patient waiting for inpatient placement and referral to [facility]. TANIA faxed information regarding patient to Crisis per their request. KALEN Faulkner
[2022-09-26 21:18] VITALS: RESP 18
[2022-09-26 22:34] VITALS: BP 146/90; PULSE 92; RESP 18
[2022-09-27 00:20] VITALS: RESP 16
[2022-09-27 02:51] VITALS: BP 136/85; PULSE 77; RESP 16; O2SAT 95
[2022-09-27 03:00] VITALS: BP 136/85; PULSE 77; RESP 16; TEMP 36.7; O2SAT 95
[2022-09-27 03:27] VITALS: RESP 16
[2022-09-27 06:15] VITALS: PULSE 82; RESP 16; O2SAT 97
== END 2022-09-27 06:42 ==
PROVIDERS: Emergency Provider Emergency Medicine; PCP Internal Medicine; Visit Provider Emergency Medicine
DX: F32.A Depression, unspecified (principal); R45.851 Suicidal ideations; F15.90 Other stimulant use, unspecified, uncomplicated; F41.9 Anxiety disorder, unspecified; F17.210 Nicotine dependence, cigarettes, uncomplicated; Z79.01 Long term (current) use of anticoagulants; Z79.899 Other long term (current) drug therapy
CPT/HCPCS: 80053; 80307; 82077; 85025; 87811; 99284; J7050

== ENCOUNTER 2023-01-13 13:58 | Inpatient (IN) | payer MEDICAID, SELFPAY ==
[2023-01-13] VITALS (8 sets, daily range): BP systolic 101–124; BP diastolic 59–106; PULSE 91–115; RESP 18–22; TEMP 35.5–37.6; O2SAT 96–100; BMI 30.4
--- NOTE | 2023-01-13 15:03 | EX.ED.UPPERE ---
HPI History of Present Illness HPI Narrative: Dorsum of right hand painful and swollen after injecting with methamphetamine 2 days ago. Chief Complaint: Wound Check Informant: patient Onset/Context/Timing Onset: Today and Yesterday Context: Gradual Onset Timing: Continuous Quality of Pain: Dull and Aching Current Severity: Moderate Maximum Severity: Moderate Narrative Narrative: 32-year-old male history of drug abuse primarily IV methamphetamines. 2 days ago he injected the dorsum of his right hand. Believes he may have missed the vein. Is concerned now that it is infected. He is not on any blood thinners. Previously he was on Eliquis for pulmonary emboli but he is no longer on it. Denies any fall injury or trauma. Complaining of pain and swelling of the dorsum of his right hand. Prior similar symptoms: No Recent Illness/Hospitalization: No [facility] Medical History (Updated 01/13/23 @ 17:[address] Ward Shah MD) Chronic headaches Drug abuse Encounter for screening for COVID-19 History of blood clots Pulmonary embolism Home Medications NK 01/13/23 [History Last Taken Unknown] Allergy/AdvReac Type Severity Reaction Status Date / Time No Known Allergies Allergy Verified 01/13/23 14:01 Family History Aunt Depression Other Asthma CVA (cerebral vascular accident) Diabetes Heart disease Hypertension Mental disorder Surgical History back surgery 03/2010 Social History Smoking Status: Current every day smoker tobacco type: cigarettes and e-cigarettes Electronic Cigarette Use: without nicotine alcohol intake: never substance use type: former substance user 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 ROS ROS ED ROS Narrative Denies illness other than pain in the dorsum of his right hand. Review of Systems ROS Unobtainable: Denies due to encephalopathy Constitutional Constitutional ED: Denies chills or fever(s) Eyes Eyes: Denies blurry vision ENT ENT ED: Denies ear pain Cardiovascular Cardiovascular: Denies chest pain Respiratory/Chest Respiratory/Chest: Denies cough or dyspnea Genitourinary Genitourinary ED: Denies dysuria or hematuria Musculoskeletal Musculoskeletal: Denies back pain Integumentary Denies abscess Neurologic Neurologic: Denies headache(s) Psychiatric Psychiatric: Denies anxiety or depression Endocrine Endocrinology: Denies cold intolerance Hematologic/Lymphatic Hematologic/Lymphatic: Denies easy bleeding Allergic/Immunologic Allergic/Immunologic ED: Denies mouth swelling EXAM Physical Exam Narrative Exam Narrative: 32 vital signs stable afebrile. H EENT exam unremarkable. Neck nontender. Lungs are clear. Heart tachycardic rate about 110 no murmur. Chest wall nontender. Abdomen soft nontender. Back nontender. Moving all 4 extremities. The dorsum of his right hand is swollen and tender. There is no lymphangitic streaking. There is no axillary lymphadenopathy. He will not completely extend the digits of his right hand due to pain. He is holding him in 45 degrees of flexion. No bony deformity. No crepitus. Normal radial pulse. Neurologically is awake alert with no focal motor deficits. Const Vital Signs: 01/13/23 13:59 Temperature 96 F L Temperature Source Temporal Pulse Rate 115 H Respiratory Rate 20 H Blood Pressure 120/106 H Blood Pressure Mean 110 Pulse Ox 96 Oxygen Delivery Method Room Air Positive well nourished and well developed; Negative for obese, cachectic, contractures or unkempt General Appearance ED: well developed and NAD; Negative for unkempt, cachectic, contractures, cyanotic or diaphoretic Nutritional Appearance: Negative for cachectic or obese HEENT Reports moist mucous membranes normocephalic and atraumatic; Negative for trauma or tenderness Eyes PERRL and EOMs intact bilaterally General Eye ED: Negative for other Neck supple General: Negative for tenderness Lymph Lymphatic: Negative for other Chest Wall inspection of chest normal and palpation of chest normal Chest: Negative for other Resp normal respiratory effort and clear to auscultation bilaterally Effort and Inspection: Negative for pain with movement Auscultation: Negative for rales, rhonchi, wheezes or diminished lung sounds Cardio regular rhythm, S1 normal heart sound, S2 normal heart sound and no murmurs; Negative for regular rate Rate: tachycardic; Negative for bradycardia Rhythm: Negative for abnormal rhythm GI non-tender, non-distended and no masses Inspection: Negative for abdominal distention Auscultation: normoactive bowel sounds Palpation: soft; Negative for tender or guarding Back/Spine no CVA tenderness General Back: Negative for CVA tenderness Cervical Spine: Negative for cervical spine tenderness Thoracic Spine / Upper Back: Negative for thoracic spinal tenderness Lumbar Spine / Lower Back: Negative for lumbar spinal tenderness, straight leg raise negative bilaterally or straight leg raise positive right Extremity Extremity Narrative: Swelling and tenderness of dorsum of his right hand. No lymphangitic streaks. No axillary lymphadenopathy. Does not involve the proximal forearm. He is able to flex the digits of his hand. He has pain with extension. General Extremety ED: Negative for edema or other findings General Extremity: Negative for edema or other findings Neuro oriented x3, CN's II-XII intact bilaterally, moves all extremities, no focal motor deficits and no sensory deficits noted Sensorium / Orientation: alert, oriented to person and oriented to place; Negative for oriented to time, orientation impaired, lethargic or stuporous Sensory Exam: No sensory level loss detected Motor Exam: strength 5/5 throughout Psych mental status grossly normal Appearance: Negative for unkempt Attitude: No agitated Mood & Affect: Negative for depressed, anxious or tearful Skin Skin Narrative: Swelling and tenderness dorsum of right hand. General Skin Exam: Negative for petechiae Lesions: no lesions Rashes: No no rashes Trauma: no lacerations or abrasions MDM MDM MDM Narrative Medical decision making narrative: 32-year-old male with suspected infection of the dorsum of his right hand from IV drug abuse injection. To be started on IV Unasyn. Screening labs and x-ray will be obtained. Toradol for pain.\ Repeat exam at 5 PM no significant change. Discussed test results with the patient. He will be admitted for IV antibiotics. Have spoken to the hospitalist on page she will be down to evaluate the patient for admission. He has already received IV Unasyn. History & Record Review Discussion w/independent historian: Patient Lab Data Attestation: I reviewed the patient's lab results. Lab results narrative: CBC shows an elevated white count of 27,000. H&H 14 and 40. Electrolytes show sodium 131. BUN of 70 creatinine 1.54. Glucose of 190. Liver enzymes are elevated. Hand x-ray shows soft tissue swelling. No fracture or dislocation. No subcu air. Radiography Diagnostic Testing: Right hand x-ray 3 views interpreted by myself and the radiologist shows soft tissue swelling. No bony deformity. No fracture or dislocation. No subcu air. Discharge Plan Triage Chief Complaint: Wound Check ED Provider: Ward Shah Dx/Rx/DC Orders Clinical Impression: Cellulitis of hand, right, Drug abuse, IV, Leukocytosis, Acute dehydration, Elevated liver enzymes Prescriptions: No Action NK Primary Care Provider: Care Physician,No Primary Referrals: Kyleigh Salcido MD [Med Staff - Associate Music Professor] - Disposition Disposition: Acute Care [facility]
[2023-01-13] MEDS: Ketorolac 30 MG/ML Syringe IV (15:24)
--- NOTE | 2023-01-13 15:35 | RAD_ITS ---
STUDY: XR Hand Min 3 Views REASON FOR EXAM: Male, 32 years old. right hand swelling due to infection TECHNIQUE: XR Hand Min 3 Views RIGHT COMPARISON: None. FINDINGS: Normal radiocarpal articulation. Normal distal radioulnar joint. Normal visualized carpal bones. Normal carpal articulations Normal carpometacarpal articulation of the thumb. Normal second through fifth carpometacarpal joints. Normal metacarpi. Normal metacarpophalangeal joint of the thumb. Normal interphalangeal joint of the thumb. Normal proximal and distal phalanges of the thumb. Normal metacarpophalangeal joints of the second through fifth fingers. Normal proximal and distal interphalangeal joints of the second through fifth fingers. Normal phalanges of the second through fifth fingers. There is non specific soft tissue swelling of the hand. RAD/Hand Min 3 Views IMPRESSION: There is non specific soft tissue swelling of the hand. Electronically Signed: Benton Flanagan MD at 16:05 EDT ,
[2023-01-13 15:49] LABS: Absolute Lymphocyte Count 1.49 X10^3/uL (0.83-4.51); Absolute Neutrophil Count 23.1 X10^3/uL (2.0-7.7); Basophil# 0.04 X10^3/uL; Basophil% 0.1 % (0-1); Hematocrit 40.4 % (40-54); Hemoglobin 14.1 g/dL (13.0-16.5); Lymphocyte # 1.49 X10^3/ul (0.83-4.51); Lymphocyte % 5.4 % (19-41); Mean Corp Hgb Conc 34.9 g/dL (32-36); Mean Corpuscular Hgb 29.7 pg (27.0-32.0); Mean Corpuscular Volume 85.2 fL (80-94); Mean Platelet Vol. 10.2 fl (6.2-12.0); Monocyte# 2.34 X10^3/uL; Monocyte% 8.5 % (0-10); NRBC Flagged by Analyzer 0 % (0-5); Neutrophil # 23.12 X10^3/uL (2.7-7.7); Neutrophil % 84.5 % (47-70); POSITIVE DIFFERENTIAL YES; Platelet Count 264 K/mm3 (150-450); RBC Distribution Width CV 13.3 % (11.6-14.6); RBC Distribution Width SD 41.3 fl (35.1-43.9); Red Blood Count 4.74 M/mm3 (4.6-6.2); White Blood Count 27.4 K/mm3 (4.4-11.0)
[2023-01-13 16:07] LABS: Differential Indicated SCAN CRITERIA MET
[2023-01-13 16:13] LABS: ALB/GLOB Ratio 1.2 RATIO (0.9-2.4); AST(SGOT) 1245 U/L (15-37); Alanine Aminotransfer ALT/SGPT 289 U/L (16-61); Albumin, Serum 4.4 g/dL (3.2-5.0); Alkaline Phosphatase 144 U/L (45-117); Anion Gap 9 (5-15); BUN 70 mg/dL (7-18); BUN/Creat Ratio 45.5 RATIO (10-20); Chloride 98 mmol/L (98-107); Creatinine, Serum 1.54 mg/dL (0.70-1.30); EST Glomerular Filtration Rate 55 mL/min (>60); Est Glom Filt Rate - Afr Amer 67 mL/min (>60); Estimated Creatinine Clearance 72.67 ml/min; Globulin 3.7 g/dL (2.2-4.2); Glucose 190 mg/dL (74-106); Potassium 4.5 mmol/L (3.5-5.1); Protein, Total 8.1 g/dL (6.4-8.2); Sodium Level 131 mmol/L (136-145)
[2023-01-13 17:11] LABS: Differential Comment SEE COMMENTS; Platelet Estimate ADEQUATE (ADEQ)
[2023-01-13 17:12] LABS: Red Cell Morphology NORM C+C NORMAL (NORM C&C)
--- NOTE | 2023-01-13 17:44 | HP.PCM.HOS_ITS ---
HPI - General HPI Narrative AMANUEL SOLIMAN, is a 32 M who presents [facility] Medical History (Updated 01/13/23 @ 17:[address] Ward Shah MD) Chronic headaches Drug abuse Encounter for screening for COVID-19 History of blood clots Pulmonary embolism Home Medications NK 01/13/23 [History Last Taken Unknown] Allergy/AdvReac Type Severity Reaction Status Date / Time No Known Allergies Allergy Verified 01/13/23 14:01 Family History Aunt Depression Other Asthma CVA (cerebral vascular accident) Diabetes Heart disease Hypertension Mental disorder Surgical History back surgery 03/2010 Social History Smoking Status: Current every day smoker tobacco type: cigarettes and e- cigarettes Electronic Cigarette Use: without nicotine alcohol intake: never substance use type: former substance user 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 Vital Signs Vital Signs Vital Signs: 01/13/23 13:59 01/13/23 17:22 Temperature 96 F L 98 F Temperature Source Temporal Temporal Pulse Rate 115 H 91 Respiratory Rate 20 H 18 Blood Pressure 120/106 H 124/76 H Blood Pressure Mean 110 92 Pulse Ox 96 100 Oxygen Delivery Method Room Air Room Air Weight Weight: 98.883 kg Body Mass Index (BMI) 30.4 Results Lab / Micro Data Result Diagrams: 01/13/23 15:25 01/13/23 15:25 Labs: Laboratory Results - last 24 hr 01/13/23 15:25: WBC 27.4 H, RBC 4.74, Hgb 14.1, Hct 40.4, MCV 85.2, MCH 29.7, MCHC 34.9, RDW Std Deviation 41.3, RDW Coeff of Rita 13.3, Plt Count 264, MPV 10.2, Immature Gran % (Auto) 1.500 H, Neut % (Auto) 84.5 H, Lymph % (Auto) 5.4 L , [place] % (Auto) 8.5, Eos % (Auto) 0.0, Baso % (Auto) 0.1, Absolute Neuts (auto) 23.1 H, Absolute Lymphs (auto) 1.49, Nucleated RBC % 0, Differential Comment SEE COMMENTS, Diff Path Review May foll, Platelet Estimate ADEQUATE, RBC Morphology NORM C+C 01/13/23 15:25: Sodium 131 L, Potassium 4.5, Chloride 98, Carbon Dioxide 24.0, Anion Gap 9, BUN 70 H, Creatinine 1.54 H, Estim Creat Clear Calc 72.67, Est GFR (MDRD) Af Amer 67, Est GFR (MDRD) Non-Af 55 L, BUN/Creatinine Ratio 45.5 H, Glucose 190 H, Calcium 9.0, Total Bilirubin 1.10 H, AST 1245 H, ALT 289 H, Alkaline Phosphatase 144 H, Total Protein 8.1, Albumin 4.4, Globulin 3.7, Albumi n/Globulin Ratio 1.2 Radiology Impression Hand X-Ray 01/13/23 15:35 IMPRESSION: There is non specific soft tissue swelling of the hand. Electronically Signed: Benton Flanagan MD at 16:05 EDT Reading Location ID and State: [facility] / [place] , Service support ,
--- NOTE | 2023-01-13 17:44 | PCM.HP.STD ---
HPI - General General Date of Admission: 01/13/23 Date of Service: 01/13/23 Chief Complaint: Right hand pain and swelling/redness HPI Narrative AMANUEL SOLIMAN, is a 32 M who presented to the emergency department at [facility] on 01/13/2023 with a chief complaint of right hand pain, swelling, and redness. Patient has a history of IV methamphetamine abuse and reported he had been clean for a year however relapsed about 3 days ago at which time he injected with a steroid needle into his right hand. Yesterday afternoon he started noticing the area having increased pain and redness and today it got dramatically worse so he came to the emergency department. He has had some chills but no documented fever and states that his withdrawal symptoms from his methamphetamine were more severe the last 24 to 48 hours but improved today. He denies any other substance abuse. He states he is never had anything like this previously. He denies history of hepatitis or known liver disease. Vital signs on presentation showed a temperature of 96, heart rate 115, blood pressure 120/106, respiratory rate 20, oxygen saturations 96% on room air. CBC shows a significant leukocytosis at 27.4 with an 84.5% neutrophilia. Coags are pending. Chemistry panel shows hyponatremia the sodium of 135, BUN of 70 with a creatinine of 1.54 which is markedly above his baseline of 0.8-1. His glucose was 190, AST is 1245, ALT is 289 and bilirubin is 1.10. Hand x-ray only shows nonspecific soft tissue swelling in the hand. He was started on Unasyn by the emergency department and request for admission was made. I did request they add vancomycin to this as well. [facility] Medical History Chronic headaches Drug abuse Encounter for screening for COVID-19 History of blood clots Pulmonary embolism Home Medications NK 01/13/23 [History Last Taken Unknown] Allergy/AdvReac Type Severity Reaction Status Date / Time No Known Allergies Allergy Verified 01/13/23 14:01 Family History Aunt Depression Other Asthma CVA (cerebral vascular accident) Diabetes Heart disease Hypertension Mental disorder Surgical History back surgery 03/2010 Social History (Updated 01/13/23 @ 18:[address] Mary Szymanski DO) housing: homeless current occupation: Currently not working Smoking Status: Current every day smoker tobacco type: cigarettes and e-cigarettes Electronic Cigarette Use: without nicotine alcohol intake: never substance use type: amphetamines and methamphetamine ROS Constitutional Constitutional: Reports chills, fatigue and malaise; Denies anorexia, change in weight, fever(s), night sweats, weakness or other Eyes Eyes: Denies blurry vision, change in eye color, change in vision, discharge from eye(s), double vision, erythema, eye pain, loss of vision or other ENT HEENT: Denies abnormal hearing, dysphagia, ear pain, epistaxis, headache(s), hearing loss, nasal congestion, nasal discharge, post nasal drip, sinus pressure, sore throat or other Cardiovascular Cardiovascular: Denies chest pain, claudication, dyspnea on exertion, edema, lightheadedness, orthopnea, palpitations, paroxysmal nocturnal dyspnea, rapid heart rate, syncope or other Respiratory/Chest Respiratory/Chest: Denies cough, dyspnea, excessive phlegm production, hemoptysis, productive cough, shortness of breath at rest, shortness of breath with exertion, wheezing or other Gastrointestinal Gastrointestinal: Denies abdominal pain, coffee ground emesis, constipation, diarrhea, dyspepsia, hematemesis, hematochezia, loose stools, melena, nausea, vomiting or other Genitourinary Genitourinary: Denies burning urination, difficulty urinating, dysuria, hematuria, nocturia, urinary frequency, urinary hesitancy, urinary incontinence, urinary urgency or other Musculoskeletal Musculoskeletal: Reports joint pain, joint stiffness and other Details: Right hand pain, swelling, redness ; Denies arthralgias, back pain, joint swelling, myalgias or neck pain Neurologic Neurologic: Reports tingling; Denies abnormal gait, abnormal speech, confusion, disequilibrium, dizziness, focal weakness, headache(s), numbness, paresthesias, seizure-like activity, seizures, syncope, tremor(s) or other Psychiatric Psychiatric: Denies anxiety, depression, homicidal ideation, suicidal ideation or other Endocrine Endocrinology: Denies change in body appearance, cold intolerance, excessive sweating, heat intolerance, polydipsia, polyuria or other Hematologic/Lymphatic Hematologic/Lymphatic: Denies anemia, easy bleeding, easy bruising, lymphadenopathy or other Allergic/Immunologic Allergic/Immunologic: Denies rhinitis, hives, eczemia, asthma or other Vital Signs Vital Signs Vital Signs: 01/13/23 13:59 01/13/23 17:22 Temperature 96 F L 98 F Temperature Source Temporal Temporal Pulse Rate 115 H 91 Respiratory Rate 20 H 18 Blood Pressure 120/106 H 124/76 H Blood Pressure Mean 110 92 Pulse Ox 96 100 Oxygen Delivery Method Room Air Room Air Weight Weight: 98.883 kg Body Mass Index (BMI) 30.4 Physical Exam Const alert, oriented x3, no apparent distress and well nourished Constitutional Narrative: Ill but nontoxic-appearing obese, younger middle-aged, white male, appears older than stated age, sitting up in bed watching television, appears comfortable at this time General Appearance: cooperative HEENT normocephalic, head/scalp atraumatic, hearing grossly normal bilaterally and moist oral mucous membranes HEENT Narrative: Mallampati is 2, no thrush, dentition is poor Eyes PERRL, EOMs intact bilaterally and conjunctivae normal Neck no lymphadenopathy, supple, no JVD and no carotid bruits Neck Narrative: Trachea midline, no thyroid enlargement Resp normal respiratory effort, no retractions, no use of accessory muscles and clear to auscultation bilaterally Auscultation: Negative for rales, rhonchi or wheezes Cardio regular rate, regular rhythm, S1 normal heart sound, S2 normal heart sound, no murmurs, no rub, no gallops and no clicks GI normal to inspection, nondistended, normoactive bowel sounds, soft to palpation and non-tender Extremity Extremity Narrative: Right distal hand with significant erythema over the posterior aspect of the right hand centrally located with swelling at the area up towards his wrist and into his fingers, decreased movement of the right hand due to pain, decreased sensation in the fingertips, cap refill is 2+, radial pulses 2+, no cyanosis or clubbing, pedal pulses are 2+ Skin Skin Narrative: Right hand as noted above otherwise multiple tattoos Neuro oriented x3, CN's II-XII intact bilaterally and no focal motor deficits Neuro Narrative: Altered sensation in right hand as noted above Speech: speech normal Psych affect normal Psych Narrative: Very pleasant, appreciative of care Results Lab / Micro Data Result Diagrams: 01/13/23 15:25 01/13/23 15:25 Labs: Laboratory Results - last 24 hr 01/13/23 15:25: WBC 27.4 H, RBC 4.74, Hgb 14.1, Hct 40.4, MCV 85.2, MCH 29.7, MCHC 34.9, RDW Std Deviation 41.3, RDW Coeff of Rita 13.3, Plt Count 264, MPV 10.2, Immature Gran % (Auto) 1.500 H, Neut % (Auto) 84.5 H, Lymph % (Auto) 5.4 L, [place] % (Auto) 8.5, Eos % (Auto) 0.0, Baso % (Auto) 0.1, Absolute Neuts (auto) 23.1 H, Absolute Lymphs (auto) 1.49, Nucleated RBC % 0, Differential Comment SEE COMMENTS, Diff Path Review January, Platelet Estimate ADEQUATE, RBC Morphology NORM C+C 01/13/23 15:25: Sodium 131 L, Potassium 4.5, Chloride 98, Carbon Dioxide 24.0, Anion Gap 9, BUN 70 H, Creatinine 1.54 H, Estim Creat Clear Calc 72.67, Est GFR (MDRD) Af Amer 67, Est GFR (MDRD) Non-Af 55 L, BUN/Creatinine Ratio 45.5 H, Glucose 190 H, Calcium 9.0, Total Bilirubin 1.10 H, AST 1245 H, ALT 289 H, Alkaline Phosphatase 144 H, Total Protein 8.1, Albumin 4.4, Globulin 3.7, Albumin/Globulin Ratio 1.2 Radiology Impression Hand X-Ray 01/13/23 15:35 IMPRESSION: There is non specific soft tissue swelling of the hand. Electronically Signed: Benotn Flanagan MD at 16:05 EDT Reading Location ID and State: [facility] / [place] , Service support , Assessment & Plan Assessment/Plan (1) Sepsis: (2) Cellulitis of right hand: (3) PILO (acute kidney injury): (4) Acute hepatitis: (5) Lactic acidosis: (6) Hyperglycemia: (7) Leukocytosis: (8) Hyponatremia: PLAN: Plan Sepsis secondary to right hand cellulitis -Sepsis order set initiated with fluid boluses at 30 cc/kg of body weight which equates to 3 L -Will run maintenance fluids following -Check blood cultures -Broad-spectrum antibiotics with vancomycin and Zosyn -Check procalcitonin -Check MRSA PCR -Elevate hand -Neurochecks every 4 hours -Check CT of the hand -As needed pain medication--> as needed Toradol and as needed oxycodone -Unable to use scheduled Tylenol at this point due to transaminitis -N.p.o. after midnight in case surgical intervention is needed -Orthopedic surgery consultation--> Dr. Moore identified and will see the patient likely later this evening Lactic acidosis -Cycle per sepsis guidelines -Likely related to the above Leukocytosis -Related to the above -Repeat CBC in a.m. PILO -Fluid boluses as noted above -Baseline renal function is between 0.9 and 1.0 -1.54 on admission -Monitor closely as I am using as needed Toradol for pain with significantly elevated LFTs -Repeat BMP in a.m. Mild hyponatremia -Seems to be dehydrated -Suspect hypovolemic hyponatremia -If does not improve may need further work-up -Repeat lab in a.m. Acute hepatitis -With IV drug use acute hepatitis panel ordered -Check stat Tylenol level -Right upper quadrant ultrasound -Avoid Tylenol for now -Check coags -Repeat CMP in a.m. Hyperglycemia -May be related to acute infection -No documented history of diabetes -Check hemoglobin A1c IVDU with methamphetamines -Patient without any significant withdrawal symptoms at this time states he is better today than yesterday -Outpatient follow-up with 180 -Check HIV status--> patient admits to shared needle use DVT prophylaxis -Lovenox CODE STATUS Full code Charges/Coding Visit Charges Inpatient E&M: 91149 Init Hosp L3
--- NOTE | 2023-01-13 17:48 | CM.ED ---
Social Work Note Referral Source: case find Referral Reason: no PCP/ resources SW met with patient and reintroduced herself and role as [facility] Storage Consultant. Patient remembered meeting with SW during previous visit and agreeable to speak to SW. SW inquired about recent events, patient's insurance and PCP. Patient verified insurance, reports no PCP and reports he was recently in intermediate but released early for good behavior and currently homeless. SW provided patient with a list of PCPs accepting new patient's with patient's insurance. Patient was receptive towards list. Patient states he has been sleeping on the streets as there are no places to go in [facility]. Patient reports he is still engaged in counseling services with [facility] but hasn't been going due to recent drug use. Patient states he wants to get sober again as this recent use scared him that he could lose his hand and be unable to play guitar. SW provided emotional support and reviewed [facility] resource list including homeless navigator contact information as well as treatment navigator with [facility]. Patient was receptive towards list and reports no other needs at this time. Tamara Keating MSW, K[place]EN
[2023-01-13 18:09] LABS: Lactic Acid 3.3 mmol/L (0.4-1.9)
--- NOTE | 2023-01-13 18:26 | US_ITS ---
HISTORY: Transaminitis. TECHNIQUE: Lopez scale and color doppler imaging was performed of the right upper quadrant. 78 images. COMPARISON: CT 03/08/2019. FINDINGS: LIVER: 21.5 cm in length. Heterogeneous echotexture without focal lesion demonstrated. No intrahepatic ductal dilatation. MAIN PORTAL VEIN: Patent with flow in the appropriate direction. COMMON BILE DUCT: 4 mm in diameter. GALLBLADDER: Solitary gallstone with biliary sludge in the mildly distended gallbladder. 2 mm wall thickness, within normal limits. No pericholecystic fluid. Sonographic Monzon sign negative. PANCREAS: Partially obscured due to overlying bowel gas. 3 mm pancreatic duct. RIGHT KIDNEY: 11.5 cm in length with a cortical thickness of 1.5 cm. No hydronephrosis or gross renal mass demonstrated. US/Abdomen Limited IMPRESSION: Hepatic steatosis with hepatomegaly. Cholelithiasis and biliary sludge without gallbladder wall thickening. Electronically Signed: Rhiannon Higuera MD at 8:35 EDT ,
--- NOTE | 2023-01-13 18:26 | CT_ITS ---
INDICATION: Infection R Hand EXAMINATION: CT BONE - CT Upper Extremity W/O Contrast Injection TECHNIQUE: Helically acquired images were obtained of the . 2-D reformats were performed by the technologist. A radiation dose optimization technique was used for this scan. IV Contrast dosage and agent: None. COMPARISON: None. FINDINGS: SOFT TISSUES: Extending from the carpal region distally there is diffuse severe subcutaneous edema. This is more focal in the posterior carpal region extending to the distal metacarpal region into the phalanges. The extensor digitorum tendons demonstrate a large amount of fluid within the surrounding tendon sheath consistent with severe tenosynovitis.. No radiopaque foreign body. BONES/JOINTS: No acute fracture or subluxation. Normal alignment. Preservation of the joint space. No sclerotic or destructive changes. CT/Extremity Upper without Contra IMPRESSION: Since subcutaneous edema consistent with cellulitis most pronounced in the posterior carpal and metacarpal region. Severe tenosynovitis of the extensor digitorum tendons as they course past the distal carpus and metacarpal regions. Electronically Signed: Erlin Randall MD, DANIEL at 20:03 EDT ,
[2023-01-13 20:34] LABS: Prothrombin Time (Protime)PT. 13.6 SECONDS (11.7-14.9)
[2023-01-13] MEDS: 0.9% Normal Saline 1,000 ML 999 ML IV ×2 (20:48→22:57)
[2023-01-13 20:50] LABS: Hemoglobin A1c 5.7 % (3.8-5.6)
--- NOTE | 2023-01-13 20:56 | PCM.RX.CS ---
Consult Pharmacy has been consulted to manage selected antiobiotic: Vancomycin Type of Consult: New start Suspected Infection: Sepsis, Skin/Soft tissue Prior Doses of Antibiotics Received/Current Regimen: Received 2gm iv loading dose in ER 01.13.23 @1759. Labs: Sodium 131 mmol/L (136-145) L 01/13/23 15:25 Potassium 4.5 mmol/L (3.5-5.1) 01/13/23 15:25 Chloride 98 mmol/L (98-107) 01/13/23 15:25 Carbon Dioxide 24.0 mmol/L (21.0-32.0) 01/13/23 15:25 Anion Gap 9 (5-15) 01/13/23 15:25 BUN 70 mg/dL (7-18) H 01/13/23 15:25 Creatinine 1.54 mg/dL (0.70-1.30) H 01/13/23 15:25 Est GFR (MDRD) Af Amer 67 mL/min (>60) 01/13/23 15:25 Est GFR (MDRD) Non-Af 55 mL/min (>60) L 01/13/23 15:25 BUN/Creatinine Ratio 45.5 RATIO (10-20) H 01/13/23 15:25 Glucose 190 mg/dL (74-106) H 01/13/23 15:25 Weight used for dosin kg Estimated Creatinine Clearance: 81 ml/min Goal Trough: 15-20 mcg/mL Pharmacy Plan for Drug Dosing: Renal CrCl calculated to be ~81ml/min using an adjusted body weight of 84.4kg. Per protocol will begin patient on 1750mg iv q12h. Trough level ordered for 01.15.23 @0530. Pharmacy Service will continue to monitor and adjust dosing as required. Follow-Up Labs: Trough Vancomycin - 4.30.23 @0530 before 0600 dose
[2023-01-13 21:04] LABS: Acetaminophen (Tylenol) Level < 2.0 ug/mL (10.0-30.0)
[2023-01-13] MEDS: oxyCODONE 5 MG Tablet PO (21:09)
[2023-01-13 21:15] LABS: HIV - WCH Non-Reactive (Nonreactive); Procalcitonin 3.37 ng/mL (0.00-0.09)
[2023-01-13 21:33] LABS: Reflex Lactate? Y
[2023-01-13 22:46] LABS: Lactic Acid 3.7 mmol/L (0.4-1.9)
[2023-01-13] MEDS: 0.9% Saline Lock 10 ML Syringe IV (22:57)
--- NOTE | 2023-01-13 23:10 | NURSING ---
Patient not very cooperative with fluid resistation. Education provided patient moving alot occluding IV, requesting to have IV stopped to toilet, patient eating and moving arm causing fluids to be later then ordered.
[2023-01-14] VITALS (15 sets, daily range): BP systolic 106–138; BP diastolic 53–93; PULSE 84–100; RESP 16–22; TEMP 36.4–37.5; O2SAT 91–100
[2023-01-14] MEDS: 0.9% Normal Saline 1,000 ML 999 ML IV (00:11)
[2023-01-14] MEDS: hydrOXYzine 10 MG Tablet PO (01:42)
[2023-01-14] MEDS: Ketorolac 15 MG/ML Vial IV ×4 (02:40→23:30)
[2023-01-14] MEDS: 0.9% Normal Saline 1,000 ML 100 ML IV ×3 (02:48→15:36)
--- NOTE | 2023-01-14 07:04 | CON.PCM.OR_ITS ---
HPI Consult Data Date of Consult: 01/14/23 HPI Narrative HPI Narrative: AMANUEL SOLIMAN, is a 32 M who presents to [facility] emergency department 01/13/2023 with right hand pain, redness and swelling. Patient has a history of IV methamphetamine abuse and had a relapse 4 days ago and injected into his dorsal right hand. Patient noted pain redness and swelling 2 days ago. Patient has started fevers and chills approximately 2 days ago. Patient was admitted to the service of the hospitalist, started on IV Unasyn and vancomycin. I was consulted for possible surgical intervention to suspected right hand cellulitis. At time my examination, patient reports no improvement with IV antibiotics in terms of pain, redness or swelling to his right hand. He states he has been elevating the right hand overnight. Patient reports history of surgery on his back and denies any issues with anesthesia. Denies any antecedent right hand or wrist issues. [facility] Medical History Chronic headaches Drug abuse Encounter for screening for COVID-19 History of blood clots Pulmonary embolism Home Medications NK 01/13/23 [History Last Taken Unknown] Allergy/AdvReac Type Severity Reaction Status Date / Time No Known Allergies Allergy Verified 01/13/23 14:01 Family History Aunt Depression Other Asthma CVA (cerebral vascular accident) Diabetes Heart disease Hypertension Mental disorder Surgical History back surgery 03/2010 Social History (Updated 01/13/23 @ 18:[address] Mary Szymanski DO) housing: homeless current occupation: Currently not working Smoking Status: Current every day smoker tobacco type: cigarettes and e- cigarettes Electronic Cigarette Use: without nicotine alcohol intake: never substance use type: amphetamines and methamphetamine ROS ROS Narrative 12 point review systems obtained, negative as otherwise noted HPI. Vital Signs Vital Signs Vital Signs: 01/13/23 13:59 01/13/23 17:22 01/13/23 21:00 Temperature 96 F L 98 F Temperature Source Temporal Temporal Pulse Rate 115 H 91 Pulse Strength Normal (2+) Respiratory Rate 20 H 18 Respiratory Effort Respiratory Depth Respiratory Pattern Blood Pressure 120/106 H 124/76 H Blood Pressure Mean 110 92 Blood Pressure Source Blood Pressure Position Blood Pressure Location Pulse Ox 96 100 Oxygen Delivery Method Room Air Room Air 01/13/23 22:00 01/13/23 19:29 01/13/23 22:56 Temperature 99.2 F H 99 F Temperature Source Temporal Temporal Pulse Rate 100 103 H Pulse Strength Respiratory Rate 22 H 22 H Respiratory Effort Normal Respiratory Depth Normal Respiratory Pattern Normal Blood Pressure 114/63 114/69 Blood Pressure Mean 80 84 Blood Pressure Source Blood Pressure Position Blood Pressure Location Pulse Ox 100 100 Oxygen Delivery Method Room Air Room Air Room Air 01/13/23 19:30 01/13/23 23:20 01/13/23 23:58 Temperature 99.2 F H 99 F 99.6 F H Temperature Source Temporal Temporal Temporal Pulse Rate 100 103 H 96 Pulse Strength Respiratory Rate 20 H 22 H 20 H Respiratory Effort Respiratory Depth Respiratory Pattern Blood Pressure 114/63 114/69 101/59 L Blood Pressure Mean 80 84 73 Blood Pressure Source Monitor Monitor Blood Pressure Position Semi-Fowlers Semi-Fowlers Blood Pressure Location Right Arm Right Arm Pulse Ox 100 100 98 Oxygen Delivery Method Room Air Room Air Room Air 01/14/23 01:18 01/14/23 01:33 01/14/23 01:48 Temperature 99.5 F H 99.1 F 99 F Temperature Source Temporal Temporal Temporal Pulse Rate 95 96 98 Pulse Strength Respiratory Rate 22 H 20 H 20 H Respiratory Effort Respiratory Depth Respiratory Pattern Blood Pressure 124/53 H 108/70 110/60 Blood Pressure Mean 76 82 76 Blood Pressure Source Blood Pressure Position Blood Pressure Location Pulse Ox 98 99 98 Oxygen Delivery Method Room Air Room Air Room Air 01/14/23 02:03 01/14/23 03:00 01/14/23 05:06 Temperature 99.2 F H 99 F Temperature Source Temporal Temporal Pulse Rate 100 100 Pulse Strength Respiratory Rate 20 H 18 Respiratory Effort Normal Respiratory Depth Normal Respiratory Pattern Normal Blood Pressure 110/62 114/60 Blood Pressure Mean 78 78 Blood Pressure Source Monitor Blood Pressure Position Semi-Fowlers Blood Pressure Location Right Arm Pulse Ox 98 100 Oxygen Delivery Method Room Air Room Air 01/13/23 23:38 Temperature Temperature Source Pulse Rate Pulse Strength Respiratory Rate Respiratory Effort Respiratory Depth Respiratory Pattern Blood Pressure Blood Pressure Mean Blood Pressure Source Blood Pressure Position Blood Pressure Location Pulse Ox 99 Oxygen Delivery Method Room Air Weight Weight: 218 lb 4.122 oz Body Mass Index (BMI) 30.4 Physical Exam Narrative General -A&Ox3, NAD, appears stated age. Vital signs stable, afebrile. Respiratory -normal work of breathing, no intercostal retractions. CV -pulses regular, brisk capillary refill ?4 limbs. Abdomen-soft, nontender, nondistended. No guarding, rigidity, rebound tenderness. Musculoskeletal/neurologic -full range of motion nontender throughout bilateral lower extremities, left upper extremity with full sensation and strength in all dermatomes and myotomes. No midline cervical tenderness. Right upper extremity: Cellulitic rash noted over the dorsum of the right hand and wrist. Fingers appear benign without significant swelling. There is soft tissue swelling noted overlying the carpus. No obvious fluctuance however exam is limited by pain. Patient has short arc range of motion pain with flexion/extension of the wrist. Nontender along the radiocarpal joint line volarly. Pain with passive stretch of the extensor tendons. Nontender along the flexor tendons. Pain has dorsal hand pain with attempted active flexion and extension of the digits. Brisk capillary refill in all digits. Skin is intact without lacerations, abrasions or evidence of prior puncture site. Nontender in the right axilla. Radial pulse 2+. Sensation intact to light touch median/ulnar/radial nerve distributions of the right hand. Lab / Micro Data Result Diagrams: 01/13/23 15:25 01/13/23 15:25 Labs: Laboratory Results - last 24 hr 01/13/23 15:25: WBC 27.4 H, RBC 4.74, Hgb 14.1, Hct 40.4, MCV 85.2, MCH 29.7, MCHC 34.9, RDW Std Deviation 41.3, RDW Coeff of Rita 13.3, Plt Count 264, MPV 10.2, Immature Gran % (Auto) 1.500 H, Neut % (Auto) 84.5 H, Lymph % (Auto) 5.4 L , [place] % (Auto) 8.5, Eos % (Auto) 0.0, Baso % (Auto) 0.1, Absolute Neuts (auto) 23.1 H, Absolute Lymphs (auto) 1.49, Nucleated RBC % 0, Differential Comment SEE COMMENTS, Diff Path Review May foll, Platelet Estimate ADEQUATE, RBC Morphology NORM C+C 01/13/23 15:25: Sodium 131 L, Potassium 4.5, Chloride 98, Carbon Dioxide 24.0, Anion Gap 9, BUN 70 H, Creatinine 1.54 H, Estim Creat Clear Calc 72.67, Est GFR (MDRD) Af Amer 67, Est GFR (MDRD) Non-Af 55 L, BUN/Creatinine Ratio 45.5 H, Glucose 190 H, Calcium 9.0, Total Bilirubin 1.10 H, AST 1245 H, ALT 289 H, Alkaline Phosphatase 144 H, Total Protein 8.1, Albumin 4.4, Globulin 3.7, Albumin/Globulin Ratio 1.2 01/13/23 15:25: Total Creatine Kinase 40799 H 01/13/23 15:25: Hemoglobin A1c 5.7 H 01/13/23 17:15: Lactic Acid 3.3 H* 01/13/23 20:02: PT 13.6, INR 1.0 01/13/23 20:11: Acetaminophen < 2.0 L 01/13/23 20:11: Procalcitonin 3.37 H, HIV 1&2 Antibody Non-Reactive 01/13/23 22:00: Lactic Acid 3.7 H* Radiology Impression Hand X-Ray 01/13/23 15:35 IMPRESSION: There is non specific soft tissue swelling of the hand. Electronically Signed: Benton Flanagan MD at 16:05 EDT , Upper Extremity CT 01/13/23 18:26 IMPRESSION: Since subcutaneous edema consistent with cellulitis most pronounced in the posterior carpal and metacarpal region. Severe tenosynovitis of the extensor digitorum tendons as they course past the distal carpus and metacarpal regions. Electronically Signed: Erlin Randall MD, DANIEL at 20:03 EDT , Assessment & Plan Assessment/Plan (1) Extensor tenosynovitis of wrist: PLAN: Extensor tenosynovitis noted overlying the right dorsal hand on CT scan. In the setting of cellulitis, infectious extensor tenosynovitis is suspected. Due to lack of improvement overnight with IV antibiotics and elevation, I am recommending a incision and drainage of the right dorsal hand extensor tendons. The wrist joint appears benign on CT scan without significant effusion. I discussed the procedure of I&D of the right hand with the patient including its risks, benefits, alternatives. Risk include but are not limited to bleeding, flexion, loss of life or limb, need for additional surgery, persistent pain, persistent stiffness, neurovascular injury, wound healing complications, risk of anesthesia, DVT or PE. Patient expressed understanding of these risks and wis hed to proceed with surgery. Informed consent obtained. We will plan to proceed with surgery this morning. Continue IV antibiotics. Further recommendations pending surgery.
[2023-01-14] MEDS: Gabapentin 100 MG Capsule PO ×3 (07:31→17:46)
[2023-01-14 08:13] LABS: Absolute Lymphocyte Count 1.89 X10^3/uL (0.83-4.51); Absolute Neutrophil Count 10.8 X10^3/uL (2.0-7.7); Basophil# 0.02 X10^3/uL; Basophil% 0.1 % (0-1); Eosinophil# 0.01 X10^3/uL; Eosinophils% 0.1 % (0-5); Hematocrit 34.3 % (40-54); Hemoglobin 11.5 g/dL (13.0-16.5); Lymphocyte # 1.89 X10^3/ul (0.83-4.51); Lymphocyte % 13.4 % (19-41); Mean Corp Hgb Conc 33.5 g/dL (32-36); Mean Corpuscular Hgb 29.9 pg (27.0-32.0); Mean Corpuscular Volume 89.3 fL (80-94); Mean Platelet Vol. 10.6 fl (6.2-12.0); Monocyte# 1.23 X10^3/uL; Monocyte% 8.7 % (0-10); NRBC Flagged by Analyzer 0 % (0-5); Neutrophil # 10.83 X10^3/uL (2.7-7.7); Neutrophil % 76.9 % (47-70); Platelet Count 154 K/mm3 (150-450); RBC Distribution Width CV 13.5 % (11.6-14.6); RBC Distribution Width SD 44.1 fl (35.1-43.9); Red Blood Count 3.84 M/mm3 (4.6-6.2); White Blood Count 14.1 K/mm3 (4.4-11.0)
[2023-01-14] MEDS: Bupivacaine 0.25% 30 ML Vial (08:34)
--- NOTE | 2023-01-14 08:43 | OP.PCM_ITS ---
Report of Operation Date of Procedure: 01/14/23 Description of Surgical Findings:: Preoperative diagnosis: 1. Right fourth dorsal compartment infectious tenosynovitis 2. Right hand and wrist cellulitis Postoperative diagnosis: 1. Right fourth dorsal compartment purulent tenosynovitis 2. Right hand and wrist cellulitis Procedure: 1. Incision and drainage of right dorsal hand fourth extensor tendon dorsal compartment Surgeon: Akbar Moore DO Linotype Operator: None Anesthesia: General endotracheal Anesthesiologist: Dr. Walter Complications: None Drains: None Estimated blood loss: 30 cc Urinary output: None measured IV fluids: 1 L crystalloid Specimens: Fourth dorsal compartment extensor tendon fluid cultures Surgical implants: None Packing/drains: Quarter-inch Haresh drain x1 Surgical indications: AMANUEL SOLIMAN, is a 32 M who presents to [facility] emergency department 01/13/2023 with right hand pain, redness and swelling. Patient has a history of IV methamphetamine abuse and had a relapse 4 days ago and injected into his dorsal right hand. Patient noted pain redness and swelling 2 days ago. Patient has started fevers and chills approximately 2 days ago. Patient was admitted to the service of the hospitalist, started on IV Unasyn and vancomycin. I was consulted for possible surgical intervention to suspected right hand cellulitis. At time my examination, patient reports no improvement with IV antibiotics in terms of pain, redness or swelling to his right hand. He states he has been elevating the right hand overnight. Patient reports history of surgery on his back and denies any issues with anesthesia. Denies any antecedent right hand or wrist issues. CT scan reviewed significant fluid within the fourth dorsal compartment overlying the carpus of the right hand. I recommend surgical intervention in the form of right dorsal hand incision and drainage. The risk and benefits, alternatives the procedure reviewed with patient at length and he agreed to proceed. Risk included but were not limited to bleeding, infection, loss of life or limb, need for additional surgery, persistent pain, stiffness, neurovascular injury, tendon injury or rupture, nonhealing wounds. Patient expressed understanding of these risks and wished to proceed with surgery. Description of procedure: Patient was seen in preoperative holding area. He was identified by name, medical record number, date of . The operative extremity was marked with a surgical marker. We confirmed informed consent with the patient and all questions were answered to his satisfaction. At time of his procedure, patient was brought to the operative suite and positioned supine a standard operating table. All bony prominences were well- padded. General anesthesia was induced and endotracheal tube placed. The right upper extremity was then prepped for surgery. The hand table attached to the right side of the table. We spun the bed 90 degrees. The right upper extremity was then prepped and draped in normal, sterile orthopedic fashion. Patient was receiving scheduled vancomycin at time of incision. We performed a timeout at this point confirming side, site, and operation to be performed. No concerns voiced and elected to proceed. Based on CT scan, I planned an incision overlying the base of the third metacarpal as this was the area of most focal fluid collection in the fourth dorsal compartment. Longitudinal incision approximately 2 cm in length was made sharply through skin and subcutaneous tissue with a 15 blade scalpel. Dorsal investing fascia was split in line with the incision with a 15 blade scalpel. Significant swelling was noted with an tenosynovium was encountered. I bluntly dissected through the tenosynovium and encountered significant purulence within the fourth dorsal compartment. Cultures were obtained. I then suctioned the remaining purulent fluid. I used a curved hemostat to explore the fourth dorsal compartment. Any fluid was milked proximally and distally. I then thoroughly irrigated the fourth dorsal compartment with 3 L normal saline via cystoscopy tubing. I then attempted to express any more fluid and only bloody fluid was able to be expressed from the wound. No significant swelling was palpated radially or ulnarly. Erythema was significantly improved following the I&D. I elected to place 1/4 inch Haresh drain within the fourth dorsal compartment to encourage continued drainage. I then loosely reapproximated the skin with interrupted simple 4-0 Prolene suture. A field block was administered with 30 cc total of 0.25% plain bupivacaine. A bulky sterile dressing was then applied. Patient tolerated procedure well without apparent complication. Post Operative Plan: Weightbearing: Nonweightbearing operative extremity. Strict elevation. Plan to pull drain tomorrow morning and likely initiate soaks. Range of motion as tolerated to the fingers. Antibiotics: Continue scheduled IV Unasyn and vancomycin DVT Prophylaxis: Per primary [place]: None Dressing: Dry sterile dressing changes as needed. Plan to initiate occupational therapy tomorrow for edema control and range of motion exercises following drain removal.
[2023-01-14 09:04] LABS: ALB/GLOB Ratio 1.1 RATIO (0.9-2.4); AST(SGOT) 714 U/L (15-37); Alanine Aminotransfer ALT/SGPT 213 U/L (16-61); Albumin, Serum 3.2 g/dL (3.2-5.0); Alkaline Phosphatase 105 U/L (45-117); Anion Gap 2 (5-15); BUN 24 mg/dL (7-18); BUN/Creat Ratio 29.9 RATIO (10-20); Calcium,Total 7.6 mg/dL (8.5-10.1); Chloride 111 mmol/L (98-107); EST Glomerular Filtration Rate 118 mL/min (>60); Est Glom Filt Rate - Afr Amer 142 mL/min (>60); Estimated Creatinine Clearance 139.88 ml/min; Glucose 130 mg/dL (74-106); Magnesium 2.6 mg/dL (1.6-2.6); Phosphorus 1.5 mg/dL (2.5-4.9); Potassium 3.9 mmol/L (3.5-5.1); Protein, Total 6.2 g/dL (6.4-8.2); Sodium Level 137 mmol/L (136-145); Thyroid Stim Hormone (TSH) 1.56 uIU/mL (0.358-3.74)
[2023-01-14] MEDS: oxyCODONE 5 MG Tablet PO ×3 (10:30→20:05)
[2023-01-14] MEDS: 0.9% Saline Lock 10 ML Syringe IV ×2 (10:30→23:30)
[2023-01-14] MEDS: Enoxaparin 40 MG/0.4 ML Syringe SC (10:30)
--- NOTE | 2023-01-14 12:07 | PN.HOSP_ITS ---
Subjective Subjective Doing well, no issues overnight. Redness is about the same pain is controlled Objective Data Objective Data Vital Signs: Vital Signs Temp Pulse Resp BP Pulse Ox O2 Del Method 98.1 F 84 18 117/93 H 98 Room Air 01/14/23 09:05 01/14/23 09:05 01/14/23 09:05 01/14/23 09:05 01/14/23 09:05 01/14/23 09:05 Oxygen Delivery Method Room Air Weight: 218 lb 4.122 oz Body Mass Index (BMI) 30.4 Intake & Output: Intake and Output for Last 24 Hours 01/13/23 01/14/23 01/15/23 03:59 03:59 03:59 Intake Total 3702 / 3702 865 / 865 Output Total 1000 / 1000 Balance 3702 / 3702 -135 / -135 Lab / Micro Data Result Diagrams: 01/14/23 07:10 01/14/23 07:10 Labs: Laboratory Results - last 24 hr 01/13/23 15:25: WBC 27.4 H, RBC 4.74, Hgb 14.1, Hct 40.4, MCV 85.2, MCH 29.7, MCHC 34.9, RDW Std Deviation 41.3, RDW Coeff of Rita 13.3, Plt Count 264, MPV 10.2, Immature Gran % (Auto) 1.500 H, Neut % (Auto) 84.5 H, Lymph % (Auto) 5.4 L , [place] % (Auto) 8.5, Eos % (Auto) 0.0, Baso % (Auto) 0.1, Absolute Neuts (auto) 23.1 H, Absolute Lymphs (auto) 1.49, Nucleated RBC % 0, Differential Comment SEE COMMENTS, Diff Path Review May foll, Platelet Estimate ADEQUATE, RBC Morphology NORM C+C 01/13/23 15:25: Sodium 131 L, Potassium 4.5, Chloride 98, Carbon Dioxide 24.0, Anion Gap 9, BUN 70 H, Creatinine 1.54 H, Estim Creat Clear Calc 72.67, Est GFR (MDRD) Af Amer 67, Est GFR (MDRD) Non-Af 55 L, BUN/Creatinine Ratio 45.5 H, Glucose 190 H, Calcium 9.0, Total Bilirubin 1.10 H, AST 1245 H, ALT 289 H, Alkaline Phosphatase 144 H, Total Protein 8.1, Albumin 4.4, Globulin 3.7, Alb umin/Globulin Ratio 1.2 01/13/23 15:25: Total Creatine Kinase 44318 H 01/13/23 15:25: Hemoglobin A1c 5.7 H 01/13/23 17:15: Lactic Acid 3.3 H* 01/13/23 20:02: PT 13.6, INR 1.0 01/13/23 20:11: Acetaminophen < 2.0 L 01/13/23 20:11: Procalcitonin 3.37 H, HIV 1&2 Antibody Non-Reactive 01/13/23 22:00: Lactic Acid 3.7 H* 01/14/23 07:10: WBC 14.1 H, RBC 3.84 L, Hgb 11.5 L, Hct 34.3 L, MCV 89.3, MCH 29.9, MCHC 33.5, RDW Std Deviation 44.1 H, RDW Coeff of Rita 13.5, Plt Count 154, MPV 10.6, Immature Gran % (Auto) 0.800, Neut % (Auto) 76.9 H, Lymph % (Auto) 13.4 L, [place] % (Auto) 8.7, Eos % (Auto) 0.1, Baso % (Auto) 0.1, Absolute Neuts (auto) 10.8 H, Absolute Lymphs (auto) 1.89, Nucleated RBC % 0 01/14/23 07:10: Sodium 137, Potassium 3.9, Chloride 111 H, Carbon Dioxide 24.0, Anion Gap 2 L, BUN 24 H, Creatinine 0.80, Estim Creat Clear Calc 139.88, Est GFR (MDRD) Af Amer 142, Est GFR (MDRD) Non-Af 118, BUN/Creatinine Ratio 29.9 H, Glucose 130 H, Calcium 7.6 L, Phosphorus 1.5 L, Magnesium 2.6, Total Bilirubin 0 .80, AST 714 H, ALT 213 H, Alkaline Phosphatase 105, Total Protein 6.2 L, Albumin 3.2, Globulin 3.0, Albumin/Globulin Ratio 1.1, TSH 1.56 Radiography Diagnostic Testing: Radiology Impression Hand X-Ray 01/13/23 15:35 IMPRESSION: There is non specific soft tissue swelling of the hand. Electronically Signed: Benton Flanagan MD at 16:05 EDT , Abdomen Ultrasound 01/13/23 18:26 IMPRESSION: Hepatic steatosis with hepatomegaly. Cholelithiasis and biliary sludge without gallbladder wall thickening. Electronically Signed: Rhiannon Higuera MD at 8:35 EDT , Upper Extremity CT 01/13/23 18:26 IMPRESSION: Since subcutaneous edema consistent with cellulitis most pronounced in the posterior carpal and metacarpal region. Severe tenosynovitis of the extensor digitorum tendons as they course past the distal carpus and metacarpal regions. Electronically Signed: Erlin Randall MD, DANIEL at 20:03 EDT , Physical Exam Narrative General: Alert, Oriented x3, Cooperative, No apparent distress HEENT: Atraumatic, PERRLA, EOMI, Normocephalic Oral: Moist Mucosa Neck: Supple, No JVD Lungs: Clear to auscultation, Normal air movement, No rhonchi, No wheeze, No rales Cardiovascular: Regular rate, Regular Rhythm, Normal S1, Normal S2, No murmurs Abdomen: Soft, Non Tender, Non-Distended, No Hepato-splenomegaly Extremities: Right hand edema, Capillary Refill Less than 3 Seconds Skin: Right hand is swollen with erythema and tender to palpation Musculoskeletal: No Tenderness to Palpation of Joints or Extremities Neurological: Cranial nerves II-XII grossly intact, Motor Exam 5/5 strength throughout, Sensory exam intact to light touch and pain Psych/Mental Status: Normal Affect, Appropriate Assessment & Plan Assessment/Plan (1) Sepsis: (2) Cellulitis of right hand: (3) PILO (acute kidney injury): (4) Acute hepatitis: PLAN: Plan 1. Sepsis second to hand cellulitis with possible abscess/PILO/IV drug use/acute hepatitis ? Plan for operative intervention today, there is possible fluid collection on CT scan ? Continue with antibiotics ? Blood cultures are pending ? Renal function is back to baseline we will monitor ? Counseled on cessation with his IV drug use, HIV is nonreactive, hepatitis panel is pending ? LFTs are improving we will monitor as an outpatient DVT: Lovenox Charges/Coding Visit Charges Inpatient E&M: 91613 Subs Hosp L2
[2023-01-14 20:18] LABS: Probe Check PASS
[2023-01-14 20:20] LABS: M R Staph aureus DNA By PCR POSITIVE (Negative)
[2023-01-15] VITALS (7 sets, daily range): BP systolic 100–146; BP diastolic 58–79; PULSE 52–102; RESP 16–20; TEMP 36.4–37.3; O2SAT 94–98
[2023-01-15] MEDS: 0.9% Normal Saline 1,000 ML 100 ML IV ×2 (01:46→11:46)
[2023-01-15] MEDS: oxyCODONE 5 MG Tablet PO ×5 (04:31→22:52)
[2023-01-15 05:58] LABS: Absolute Lymphocyte Count 1.92 X10^3/uL (0.83-4.51); Absolute Neutrophil Count 9.3 X10^3/uL (2.0-7.7); Basophil# 0.01 X10^3/uL; Basophil% 0.1 % (0-1); Hematocrit 33.3 % (40-54); Hemoglobin 11.2 g/dL (13.0-16.5); Lymphocyte # 1.92 X10^3/ul (0.83-4.51); Lymphocyte % 15.3 % (19-41); Mean Corp Hgb Conc 33.6 g/dL (32-36); Mean Corpuscular Hgb 29.9 pg (27.0-32.0); Mean Platelet Vol. 10.3 fl (6.2-12.0); Monocyte% 9.5 % (0-10); NRBC Flagged by Analyzer 0 % (0-5); Neutrophil # 9.32 X10^3/uL (2.7-7.7); Neutrophil % 74.1 % (47-70); Platelet Count 146 K/mm3 (150-450); RBC Distribution Width CV 13.7 % (11.6-14.6); RBC Distribution Width SD 44.7 fl (35.1-43.9); Red Blood Count 3.74 M/mm3 (4.6-6.2); White Blood Count 12.6 K/mm3 (4.4-11.0)
[2023-01-15 06:35] LABS: Vancomycin, Trough Level 6.4 ug/mL (5.0-15.0)
--- NOTE | 2023-01-15 06:48 | PHA.PHARE_ITS ---
Consult Pharmacy has been consulted to manage selected antiobiotic: Vancomycin Type of Consult: Follow-up Suspected Infection: Sepsis Prior Doses of Antibiotics Received/Current Regimen: Medications Vancomycin HCl 1,750 mg/ (Sodium Chloride) 535 mls @ 250 mls/hr IV Q12H JACQUES Stop: 01/15/23 09:00 Last Admin: 01/14/23 19:30 Dose: Infused Vancomycin HCl 1,500 mg/ (Sodium Chloride) 530 mls @ 250 mls/hr IV Q8H [facility] Labs: Sodium 137 mmol/L (136-145) 01/14/23 07:10 Potassium 3.9 mmol/L (3.5-5.1) 01/14/23 07:10 Chloride 111 mmol/L (98-107) H 01/14/23 07:10 Carbon Dioxide 24.0 mmol/L (21.0-32.0) 01/14/23 07:10 Anion Gap 2 (5-15) L 01/14/23 07:10 BUN 24 mg/dL (7-18) H 01/14/23 07:10 Creatinine 0.80 mg/dL (0.70-1.30) 01/14/23 07:10 Est GFR (MDRD) Af Amer 142 mL/min (>60) 01/14/23 07:10 Est GFR (MDRD) Non-Af 118 mL/min (>60) 01/14/23 07:10 BUN/Creatinine Ratio 29.9 RATIO (10-20) H 01/14/23 07:10 Glucose 130 mg/dL (74-106) H 01/14/23 07:10 Vancomycin Trough 6.4 ug/mL (5.0-15.0) 01/15/23 05:25 Microbiology: Microbiology 01/14/23 08:40 Tissue - Hand Gram Stain - Final Weight used for dosin kg Estimated Creatinine Clearance: 158 Goal Trough: 15-20 mcg/mL Pharmacy Plan for Drug Dosing: Vancomycin trough level was low at 6.4. This is understandable with the marked decrease in SCr (from 1.54 to 0.80). Per dosing calculator, a new dose of 1500mg q8h will give a better estimated trough of 12.7. Another level will be drawn prior to fourth dose of the new regimen. Pharmacy Service will continue to monitor and adjust dosing as required. Follow-Up Labs: Trough Vancomycin Labs to be done on [date and time ordered]: 01/16/23 @5926
[2023-01-15] MEDS: Ketorolac 15 MG/ML Vial IV ×3 (06:54→20:05)
[2023-01-15] MEDS: 0.9% Saline Lock 10 ML Syringe IV ×3 (06:55→20:06)
[2023-01-15] MEDS: Enoxaparin 40 MG/0.4 ML Syringe SC (08:44)
[2023-01-15] MEDS: Gabapentin 100 MG Capsule PO ×3 (08:45→18:00)
[2023-01-15] MEDS: HYDROmorphone 1 MG/ML Syringe IV (08:56)
--- NOTE | 2023-01-15 09:44 | PCM.PN.ORT ---
Subjective Subjective Patient seen and examined. Pain improved status post right hand I&D. Reports some chills overnight. Otherwise denies any new symptoms. Denies any numbness or tingling. Denies any fevers, nausea vomiting, chest pain or shortness of breath. Patient feels he is moving his fingers better since surgery. Still reports some pain in the right hand and wrist, controlled with current pain regimen. Objective Data Objective Data Vital Signs: Vital Signs Temp Pulse Resp BP Pulse Ox O2 Del Method 98.0 F 80 18 118/77 96 Room Air 01/15/23 06:52 01/15/23 06:52 01/15/23 06:52 01/15/23 06:52 01/15/23 06:52 01/15/23 08:27 Oxygen Delivery Method Room Air Weight: 218 lb 4.122 oz Body Mass Index (BMI) 30.4 Intake & Output: Intake and Output for Last 24 Hours 01/13/23 01/14/23 01/15/23 23:59 23:59 23:59 Intake Total 2652 / 2652 5940 / 5940 1340 / 1340 Output Total 4800 / 4800 600 / 600 Balance 2652 / 2652 1140 / 1140 740 / 740 Lab / Micro Data Result Diagrams: 01/15/23 05:25 01/14/23 07:10 Labs: Laboratory Results - last 24 hr 01/14/23 18:45: MRSA (PCR) POSITIVE H 01/15/23 05:25: Vancomycin Trough 6.4 01/15/23 05:25: WBC 12.6 H, RBC 3.74 L, Hgb 11.2 L, Hct 33.3 L, MCV 89.0, MCH 29.9, MCHC 33.6, RDW Std Deviation 44.7 H, RDW Coeff of Rita 13.7, Plt Count 146 L, MPV 10.3, Immature Gran % (Auto) 1.000 H, Neut % (Auto) 74.1 H, Lymph % (Auto) 15.3 L, [place] % (Auto) 9.5, Eos % (Auto) 0.0, Baso % (Auto) 0.1, Absolute Neuts (auto) 9.3 H, Absolute Lymphs (auto) 1.92, Nucleated RBC % 0 Micro: Microbiology 01/14/23 08:40 Tissue - Hand Gram Stain - Final 01/14/23 08:40 Tissue - Hand Wound Culture - Preliminary Staphylococcus aureus Radiography Diagnostic Testing: Radiology Impression Abdomen Ultrasound 01/13/23 18:26 IMPRESSION: Hepatic steatosis with hepatomegaly. Cholelithiasis and biliary sludge without gallbladder wall thickening. Electronically Signed: Rhiannon Higuera MD at 8:35 EDT , Physical Exam Narrative General - A&Ox3, NAD. VSS/AF. Right upper Extremity - SILT & 5/5 in radial, ulnar, musculocutaneous, axillary, and median nerve distributions. Radial, ulnar pulses 2+. Compartments soft and compressible. BCR in finger tips. Cardinal motions of the right hand are intact. Dressing removed. Nonpitting edema noted along the dorsum of the right hand, minimally improved since yesterday. Erythema appears slightly improved. Well approximated dorsal hand incision with sutures in place. Haresh drain in place. Seropurulent drainage noted on dressing. Haresh drain removed at bedside today. Seropurulent drainage expressed from the wound, I was able to milk a minimal amount of purulent fluid distal to the incision. No short arc range of motion pain at the right wrist. Assessment & Plan Assessment/Plan (1) Extensor tenosynovitis of wrist: PLAN: POD#1 s/p right extensor tendon sheath I&D - [place] drain removed. Due to continued purulent drainage, 2 additional sutures were removed from the wound to allow increased drainage. Approximately 3 inches of half-inch iodoform packing was placed in the wound. Patient was placed in a sailaja hook hanging arm sling via stockinette and attached to IV pole for strict elevation. -Intraoperative cultures growing Staphylococcus aureus. I agree with continuing MRSA coverage with vancomycin and Zosyn. I would recommend patient stay as an inpatient for at least another 24 hours due to continued cellulitis, purulent drainage with packing in place. - Pain control - Medicine following for medical management -Occupational Therapy ordered. We will hold this consult until tomorrow when patient is able to initiate some range of motion following packing removal. - DVT PPX -Lovenox, SCDs, early mobilization
--- NOTE | 2023-01-15 10:43 | PCM.PN.HOSP ---
Subjective Subjective Doing well, pain is controlled. He is status post I&D with Haresh drain in his right hand Objective Data Objective Data Vital Signs: Vital Signs Temp Pulse Resp BP Pulse Ox O2 Del Method 98.0 F 80 18 118/77 96 Room Air 01/15/23 06:52 01/15/23 06:52 01/15/23 06:52 01/15/23 06:52 01/15/23 06:52 01/15/23 08:27 Oxygen Delivery Method Room Air Weight: 218 lb 4.122 oz Body Mass Index (BMI) 30.4 Intake & Output: Intake and Output for Last 24 Hours 01/14/23 01/15/23 01/16/23 03:59 03:59 03:59 Intake Total 3702 / 3702 5940 / 5940 290 / 290 Output Total 4800 / 4800 600 / 600 Balance 3702 / 3702 1140 / 1140 -310 / -310 Lab / Micro Data Result Diagrams: 01/15/23 05:25 01/14/23 07:10 Labs: Laboratory Results - last 24 hr 01/14/23 18:45: MRSA (PCR) POSITIVE H 01/15/23 05:25: Vancomycin Trough 6.4 01/15/23 05:25: WBC 12.6 H, RBC 3.74 L, Hgb 11.2 L, Hct 33.3 L, MCV 89.0, MCH 29.9, MCHC 33.6, RDW Std Deviation 44.7 H, RDW Coeff of Rita 13.7, Plt Count 146 L, MPV 10.3, Immature Gran % (Auto) 1.000 H, Neut % (Auto) 74.1 H, Lymph % (Auto) 15.3 L, [place] % (Auto) 9.5, Eos % (Auto) 0.0, Baso % (Auto) 0.1, Absolute Neuts (auto) 9.3 H, Absolute Lymphs (auto) 1.92, Nucleated RBC % 0 Micro: Microbiology 01/14/23 08:40 Tissue - Hand Gram Stain - Final 01/14/23 08:40 Tissue - Hand Wound Culture - Preliminary Staphylococcus aureus Physical Exam Narrative General: Alert, Oriented x3, Cooperative, No apparent distress HEENT: Atraumatic, PERRLA, EOMI, Normocephalic Oral: Moist Mucosa Neck: Supple, No JVD Lungs: Clear to auscultation, Normal air movement, No rhonchi, No wheeze, No rales Cardiovascular: Regular rate, Regular Rhythm, Normal S1, Normal S2, No murmurs Abdomen: Soft, Non Tender, Non-Distended, No Hepato-splenomegaly Extremities: Right hand edema, Capillary Refill Less than 3 Seconds Skin: Right hand is swollen with dressing in Musculoskeletal: No Tenderness to Palpation of Joints or Extremities Neurological: Cranial nerves II-XII grossly intact, Motor Exam 5/5 strength throughout, Sensory exam intact to light touch and pain Psych/Mental Status: Normal Affect, Appropriate Skin Skin Narrative: Right hand as noted above otherwise multiple tattoos Assessment & Plan Assessment/Plan (1) Sepsis: (2) Cellulitis of right hand: (3) PILO (acute kidney injury): (4) Acute hepatitis: PLAN: Plan 1. Sepsis second to hand cellulitis with possible abscess/PILO/IV drug use/acute hepatitis ? I&D with Haresh drain on 01/14/2023 ? Continue with antibiotics ? Blood cultures are pending, wound cultures with Staph aureus ? Renal function is back to baseline we will monitor ? Counseled on cessation with his IV drug use, HIV is nonreactive, hepatitis panel is pending ? LFTs are improving we will monitor as an outpatient DVT: Vernellnox Charges/Coding Visit Charges Inpatient E&M: 94252 Subs Hosp L2
[2023-01-15] MEDS: hydrOXYzine 10 MG Tablet PO (21:24)
[2023-01-16 04:32] VITALS: BP 133/85; PULSE 84; RESP 20; TEMP 36.8; O2SAT 94
[2023-01-16] MEDS: Ketorolac 15 MG/ML Vial IV ×3 (04:36→18:22)
[2023-01-16] MEDS: 0.9% Saline Lock 10 ML Syringe IV ×2 (04:36→09:15)
[2023-01-16] MEDS: hydrOXYzine 10 MG Tablet PO (04:37)
[2023-01-16] MEDS: oxyCODONE 5 MG Tablet PO ×4 (06:42→21:18)
[2023-01-16] MEDS: 0.9% Normal Saline 1,000 ML 100 ML IV (06:43)
[2023-01-16 06:58] LABS: Absolute Lymphocyte Count 2.76 X10^3/uL (0.83-4.51); Absolute Neutrophil Count 11.6 X10^3/uL (2.0-7.7); Basophil# 0.07 X10^3/uL; Basophil% 0.4 % (0-1); Eosinophil# 0.05 X10^3/uL; Eosinophils% 0.3 % (0-5); Hematocrit 36.7 % (40-54); Lymphocyte # 2.76 X10^3/ul (0.83-4.51); Lymphocyte % 17.4 % (19-41); Mean Corp Hgb Conc 32.7 g/dL (32-36); Mean Corpuscular Hgb 29.6 pg (27.0-32.0); Mean Corpuscular Volume 90.6 fL (80-94); Mean Platelet Vol. 11.3 fl (6.2-12.0); Monocyte# 1.15 X10^3/uL; Monocyte% 7.3 % (0-10); NRBC Flagged by Analyzer 0.3 % (0-5); Neutrophil # 11.59 X10^3/uL (2.7-7.7); Neutrophil % 73.3 % (47-70); POSITIVE COUNT YES; Platelet Count 152 K/mm3 (150-450); RBC Distribution Width CV 13.2 % (11.6-14.6); RBC Distribution Width SD 43.8 fl (35.1-43.9); Red Blood Count 4.05 M/mm3 (4.6-6.2); White Blood Count 15.8 K/mm3 (4.4-11.0)
[2023-01-16 07:07] LABS: Differential Indicated SCAN CRITERIA MET
--- NOTE | 2023-01-16 07:41 | DCINST_ITS ---
Discharge Instructions Follow Up Care Test Results: Test results from this visit will be discussed in further detail at your follow- up appointment, if applicable. Discharge Plan Admission Admit Date/Time: 01/13/23 18:16 Attending Provider: Jamli Burgess Primary Care Provider: Care Physician,No Primary Consulting Providers: Mary Szymanski ; Akbar Moore ; Akbar Kim Discharge Orders/Prescriptions Prescriptions: No Action NK Referrals / Follow Up: Kyleigh Salcido MD [Med Staff - Electrical Technician Instructor] - Care Physician,No Primary [Primary Care Provider] -
--- NOTE | 2023-01-16 07:42 | PN.HOSP_ITS ---
Reason for Visit Reason for Visit: Diagnoses Sepsis, unspecified organism (01/13/23) Acute viral hepatitis, unspecified (01/13/23) Elevated white blood cell count, unspecified (01/13/23) Hypo-osmolality and hyponatremia (01/13/23) Acidosis, unspecified (01/13/23) Cellulitis of right upper limb (01/13/23) Other synovitis and tenosynovitis, unspecified forearm (01/13/23) Acute kidney failure, unspecified (01/13/23) Hyperglycemia, unspecified (01/13/23) Subjective Subjective Seen and examined. Patient right hand is still swollen tender not able to extend fingers without pain with purulent drainage. Objective Data Objective Data Vital Signs: Vital Signs Temp Pulse Resp BP Pulse Ox O2 Del Method 98.3 F 84 20 H 133/85 H 94 Room Air 01/16/23 04:32 01/16/23 04:32 01/16/23 04:32 01/16/23 04:32 01/16/23 04:32 01/16/23 04:32 Oxygen Delivery Method Room Air Weight: 218 lb 4.122 oz Body Mass Index (BMI) 30.4 Intake & Output: Intake and Output for Last 24 Hours 01/14/23 01/15/23 01/16/23 23:59 23:59 23:59 Intake Total 5940 / 5940 5905 / 5905 2060 / 2060 Output Total 4800 / 4800 3000 / 3000 600 / 600 Balance 1140 / 1140 2905 / 2905 1460 / 1460 Lab / Micro Data Result Diagrams: 01/16/23 06:15 01/14/23 07:10 Labs: Laboratory Results - last 24 hr 01/16/23 06:15: WBC 15.8 H, RBC 4.05 L, Hgb 12.0 L, Hct 36.7 L, MCV 90.6, MCH 29.6, MCHC 32.7, RDW Std Deviation 43.8, RDW Coeff of Rita 13.2, Plt Count 152, MPV 11.3, Immature Gran % (Auto) 1.300 H, Neut % (Auto) 73.3 H, Lymph % (Auto) 17.4 L, [place] % (Auto) 7.3, Eos % (Auto) 0.3, Baso % (Auto) 0.4, Absolute Neuts (auto) 11.6 H, Absolute Lymphs (auto) 2.76, Nucleated RBC % 0.3 Micro: Microbiology 01/14/23 08:40 Tissue - Hand Gram Stain - Final 01/14/23 08:40 Tissue - Hand Wound Culture - Preliminary Staphylococcus aureus Physical Exam Narrative Seen and examined. Physical exam General: Alert, Oriented x3, Cooperative HEENT: Atraumatic, PERRLA, EOMI, Normocephalic Oral: No Gingival or Mucosal Lesions/ Ulcerations Neck: Supple, No JVD, Negative Carotid Bruits Lungs: Air entry diminished in bilateral lung bases. No crepitation/rhonchi Cardiovascular: Regular rate, Regular Rhythm, Normal S1, Normal S2, No murmurs Abdomen: Bowel Sounds Present, Soft, Non Tender, Non-Distended : No renal angle tenderness. No suprapubic tenderness. Extremities: Right hand is edematous swollen and tender on extensor surface. 2 stitches were open. Mild purulent/serous fluid drainage. Mild flexor deformity of fingers. Skin: IVDA history. Status postdrainage of right hand abscess. Musculoskeletal: ROM intact of lower extremities. Neurological: Cranial nerves II-XII grossly intact, DTR 2+/4 and Symmetrical, Neuro grossly intact Psych/Mental Status: Flat affect. Assessment & Plan Assessment/Plan (1) Sepsis: (2) Cellulitis of right hand: (3) PILO (acute kidney injury): (4) Acute hepatitis: PLAN: Plan 1. Sepsis second to right hand cellulitis, extensor tenosynovitis: Patient had right extensor tendon sheath incision and drainage on 01/14/2023. Purulent drainage and decreased. Packing was removed. 3 times daily soapy water soak. ROM exercises of digits and wrist. Intra-Op cultures growing MSSA. On IV antib iotics. ID consult reviewed and appreciated. Procalcitonin was high. 2. IV methamphetamine use disorder: HIV negative hep panel pending. 3. PILO: PILO resolved. Renal function creatinine back to the baseline. 4. Acute liver injury probably due to rhabdomyolysis/infectious hepatitis: Transaminases are high, ALT 213, AST 714 AST ALT ratio 3 is to 1. CK was high 68,433. TB 1.1, repeat normal. 5 DVT: Lovenox Charges/Coding Visit Charges Inpatient E&M: 38692 Subs Hosp L2
--- NOTE | 2023-01-16 07:43 | PCM.PN.ORT ---
Subjective Subjective Patient seen and examined. Reports soreness in his right hand. States he felt warm overnight and sweaty. Denies nausea or vomiting, chest pain or shortness of breath. Objective Data Objective Data Vital Signs: Vital Signs Temp Pulse Resp BP Pulse Ox O2 Del Method 98.3 F 84 20 H 133/85 H 94 Room Air 01/16/23 04:32 01/16/23 04:32 01/16/23 04:32 01/16/23 04:32 01/16/23 04:32 01/16/23 04:32 Oxygen Delivery Method Room Air Weight: 218 lb 4.122 oz Body Mass Index (BMI) 30.4 Intake & Output: Intake and Output for Last 24 Hours 01/14/23 01/15/23 01/16/23 23:59 23:59 23:59 Intake Total 5940 / 5940 5905 / 5905 2060 / 2060 Output Total 4800 / 4800 3000 / 3000 600 / 600 Balance 1140 / 1140 2905 / 2905 1460 / 1460 Lab / Micro Data Result Diagrams: 01/16/23 06:15 01/14/23 07:10 Labs: Laboratory Results - last 24 hr 01/16/23 06:15: WBC 15.8 H, RBC 4.05 L, Hgb 12.0 L, Hct 36.7 L, MCV 90.6, MCH 29.6, MCHC 32.7, RDW Std Deviation 43.8, RDW Coeff of Rita 13.2, Plt Count 152, MPV 11.3, Immature Gran % (Auto) 1.300 H, Neut % (Auto) 73.3 H, Lymph % (Auto) 17.4 L, [place] % (Auto) 7.3, Eos % (Auto) 0.3, Baso % (Auto) 0.4, Absolute Neuts (auto) 11.6 H, Absolute Lymphs (auto) 2.76, Nucleated RBC % 0.3 Micro: Microbiology 01/14/23 08:40 Tissue - Hand Gram Stain - Final 01/14/23 08:40 Tissue - Hand Wound Culture - Preliminary Staphylococcus aureus Physical Exam Narrative General - A&Ox3, NAD. VSS/AF. Right upper Extremity - SILT & 5/5 in radial, ulnar, musculocutaneous, axillary, and median nerve distributions. Radial, ulnar pulses 2+. Compartments soft and compressible. BCR in finger tips. Cardinal motions of the right hand are intact. Dressing removed. Nonpitting edema noted along the dorsum of the right hand, minimally improved since yesterday. Erythema appears slightly improved. Well approximated dorsal hand incision with sutures in place. Iodoform packing in place. Seropurulent drainage noted on dressing. Packing removed at bedside today. Seropurulent drainage expressed from the wound. No short arc range of motion pain at the right wrist. Assessment & Plan Assessment/Plan (1) Extensor tenosynovitis of wrist: PLAN: POD#2 s/p right extensor tendon sheath I&D -Packing removed. Purulent drainage is significantly decreased from yesterday. We will initiate 3 times daily 10-minute soap water soaks encouraging range of motion of the digits and wrist. -Intraoperative cultures growing Staphylococcus aureus. Continue IV antibiotics. With continued purulence and cellulitis, I would recommend monitoring the patient for another 24 hours to ensure no additional surgical intervention necessary. Sensitivities pending. - Pain control - Medicine following for medical management -Occupational Therapy ordered for range of motion and edema control of the right hand and wrist - DVT PPX -Lovenox, SCDs, early mobilization
[2023-01-16 07:48] VITALS: O2SAT 97
[2023-01-16 08:27] LABS: Differential Comment SCANNED
[2023-01-16] MEDS: Gabapentin 100 MG Capsule PO ×3 (09:15→17:07)
[2023-01-16] MEDS: Enoxaparin 40 MG/0.4 ML Syringe SC (09:15)
[2023-01-16 09:20] VITALS: BP 132/99; PULSE 87; RESP 17; TEMP 36.5; O2SAT 97
--- NOTE | 2023-01-16 13:21 | NURSING ---
Report called to MS3 CLARKE Honeycutt.
--- NOTE | 2023-01-16 14:04 | CON.PCM.ID_ITS ---
Assessment & Plan Assessment/Plan (1) Extensor tenosynovitis of wrist: PLAN: Now s/p I&D by Dr. Moore 01/14/23. Surg cx with MSSA so far. On vanc/zosyn. HIV neg, hep panel pending. Will follow, thank you (2) Methamphetamine abuse: (3) Drug abuse, IV: HPI Consult Data Date of Consult: 01/16/23 HPI Narrative Reason for Consultation: hand infection HPI Narrative: AMANUEL SOLIMAN, is a 32 M with h/o IVDU with meth, denies any h/o hep C or HIV, had recent relapse and injected into R hand around 01/10. He is left handed. Had progressive severe pain, swelling, redness, fever, chills, sweats. Does not share needles, does re-use needles, does not lick needles. Came to ED 01/13, put on vanc/zosyn, admitted and taken to OR 01/[address] Moore for I&D. Redness and pain slightly better. Full ROS performed and neg except as noted above. [facility] Medical History Chronic headaches Drug abuse Encounter for screening for COVID-19 History of blood clots Pulmonary embolism Home Medications NK 01/13/23 [History Last Taken Unknown] Allergy/AdvReac Type Severity Reaction Status Date / Time No Known Allergies Allergy Verified 01/13/23 14:01 Family History Aunt Depression Other Asthma CVA (cerebral vascular accident) Diabetes Heart disease Hypertension Mental disorder Surgical History back surgery 03/2010 Social History (Updated 01/13/23 @ 18:[address] Mary Szymanski DO) housing: homeless current occupation: Currently not working Smoking Status: Current every day smoker tobacco type: cigarettes and e- cigarettes Electronic Cigarette Use: without nicotine alcohol intake: never substance use type: amphetamines and methamphetamine Physical Exam Const alert, oriented x3 and no apparent distress General Appearance: cooperative HEENT normocephalic and head/scalp atraumatic Eyes PERRL and EOMs intact bilaterally Neck supple and No nodes Resp normal air movement and clear to auscultation bilaterally Cardio regular rate and regular rhythm GI soft to palpation, non-tender and non-distended Extremity Extremity Narrative: No edema in BLE Skin Skin Narrative: R hand with swelling, redness, pain, warmth. Small amount of purulence on dressing Neuro CN's II-XII intact bilaterally Lab / Micro Data Attestation: I reviewed the patient's lab results. Result Diagrams: 01/16/23 06:15 01/14/23 07:10 Labs: Laboratory Results - last 24 hr 01/16/23 06:15: WBC 15.8 H, RBC 4.05 L, Hgb 12.0 L, Hct 36.7 L, MCV 90.6, MCH 29.6, MCHC 32.7, RDW Std Deviation 43.8, RDW Coeff of Rita 13.2, Plt Count 152, MPV 11.3, Immature Gran % (Auto) 1.300 H, Neut % (Auto) 73.3 H, Lymph % (Auto) 17.4 L, [place] % (Auto) 7.3, Eos % (Auto) 0.3, Baso % (Auto) 0.4, Absolute Neuts (auto) 11.6 H, Absolute Lymphs (auto) 2.76, Nucleated RBC % 0.3, Differential Comment SCANNED Micro: Microbiology 01/14/23 08:40 Tissue - Hand Gram Stain - Final 01/14/23 08:40 Tissue - Hand Wound Culture - Final Staphylococcus aureus 01/14/23 08:40 Tissue - Hand Anaerobic Culture - Preliminary Checking for anaerobes, further studies to follow. 01/13/23 20:11 Blood Culture (Wb) - Left Hand Blood Culture - Preliminary No growth in 48 hours. 01/13/23 20:02 Blood Culture (Wb) - Arm Left Blood Culture - Preliminary No growth in 48 hours.
[2023-01-16 14:30] LABS: Vancomycin, Trough Level 10.4 ug/mL (5.0-15.0)
[2023-01-16 15:20] VITALS: BP 119/87; PULSE 90; RESP 18; TEMP 36.7; O2SAT 100
--- NOTE | 2023-01-16 15:22 | PCM.RX.CS ---
Consult Pharmacy has been consulted to manage selected antiobiotic: Vancomycin Type of Consult: Follow-up Prior Doses of Antibiotics Received/Current Regimen: Medications Vancomycin HCl 1,500 mg/ (Sodium Chloride) 530 mls @ 250 mls/hr IV Q8H JACQUES Last Admin: 01/16/23 15:05 Dose: 200 mls/hr Labs: Sodium 137 mmol/L (136-145) 01/14/23 07:10 Potassium 3.9 mmol/L (3.5-5.1) 01/14/23 07:10 Chloride 111 mmol/L (98-107) H 01/14/23 07:10 Carbon Dioxide 24.0 mmol/L (21.0-32.0) 01/14/23 07:10 Anion Gap 2 (5-15) L 01/14/23 07:10 BUN 24 mg/dL (7-18) H 01/14/23 07:10 Creatinine 0.80 mg/dL (0.70-1.30) 01/14/23 07:10 Est GFR (MDRD) Af Amer 142 mL/min (>60) 01/14/23 07:10 Est GFR (MDRD) Non-Af 118 mL/min (>60) 01/14/23 07:10 BUN/Creatinine Ratio 29.9 RATIO (10-20) H 01/14/23 07:10 Glucose 130 mg/dL (74-106) H 01/14/23 07:10 Vancomycin Trough 10.4 ug/mL (5.0-15.0) 01/16/23 13:50 Microbiology: Microbiology 01/14/23 08:40 Tissue - Hand Gram Stain - Final 01/14/23 08:40 Tissue - Hand Wound Culture - Final Staphylococcus aureus 01/14/23 08:40 Tissue - Hand Anaerobic Culture - Preliminary Checking for anaerobes, further studies to follow. 01/13/23 20:11 Blood Culture (Wb) - Left Hand Blood Culture - Preliminary No growth in 48 hours. 01/13/23 20:02 Blood Culture (Wb) - Arm Left Blood Culture - Preliminary No growth in 48 hours. Goal Trough: 15-20 mcg/mL Pharmacy Plan for Drug Dosing: Trough below goal. Likely at or close to steady-state now so only recommend a slight increase to 1750mg q8 and recheck trough tomorrow prior to 4th dose. Pharmacy Service will continue to monitor and adjust dosing as required. Follow-Up Labs: Trough Vancomycin - 01/17 @ [id number]
[2023-01-16] MEDS: 0.9% Normal Saline 1,000 ML 75 ML IV (17:09)
[2023-01-16 21:00] VITALS: BP 129/73; PULSE 91; RESP 16; TEMP 37; O2SAT 96
[2023-01-16] MEDS: Na Biphos/Potassium Phosphate PACKET 1 PACKET PO (21:20)
[2023-01-17] MEDS: 0.9% Saline Lock 10 ML Syringe IV ×4 (00:23→21:00)
[2023-01-17] MEDS: Ketorolac 15 MG/ML Vial IV ×3 (00:24→20:21)
[2023-01-17 02:59] VITALS: BP 138/72; PULSE 71; RESP 16; TEMP 36.8; O2SAT 98
[2023-01-17] MEDS: oxyCODONE 5 MG Tablet PO ×3 (05:30→22:30)
[2023-01-17] MEDS: Na Biphos/Potassium Phosphate PACKET 1 PACKET PO ×3 (06:33→20:21)
[2023-01-17 06:42] LABS: Absolute Lymphocyte Count 2.35 X10^3/uL (0.83-4.51); Absolute Neutrophil Count 8.6 X10^3/uL (2.0-7.7); Basophil# 0.06 X10^3/uL; Basophil% 0.5 % (0-1); Eosinophil# 0.23 X10^3/uL; Eosinophils% 1.8 % (0-5); Hematocrit 37.2 % (40-54); Hemoglobin 12.4 g/dL (13.0-16.5); Lymphocyte # 2.35 X10^3/ul (0.83-4.51); Lymphocyte % 18.7 % (19-41); Mean Corp Hgb Conc 33.3 g/dL (32-36); Mean Corpuscular Hgb 29.7 pg (27.0-32.0); Mean Corpuscular Volume 89.2 fL (80-94); Monocyte# 0.83 X10^3/uL; Monocyte% 6.6 % (0-10); NRBC Flagged by Analyzer 0 % (0-5); Neutrophil # 8.63 X10^3/uL (2.7-7.7); Neutrophil % 68.7 % (47-70); Platelet Count 193 K/mm3 (150-450); RBC Distribution Width CV 13.4 % (11.6-14.6); RBC Distribution Width SD 43.6 fl (35.1-43.9); Red Blood Count 4.17 M/mm3 (4.6-6.2); White Blood Count 12.6 K/mm3 (4.4-11.0)
[2023-01-17 07:11] LABS: Phosphorus 4.1 mg/dL (2.5-4.9)
[2023-01-17 07:20] LABS: ALB/GLOB Ratio 0.7 RATIO (0.9-2.4); AST(SGOT) 91 U/L (15-37); Alanine Aminotransfer ALT/SGPT 139 U/L (16-61); Albumin, Serum 2.5 g/dL (3.2-5.0); Alkaline Phosphatase 89 U/L (45-117); Anion Gap 7 (5-15); BUN 9 mg/dL (7-18); BUN/Creat Ratio 13.8 RATIO (10-20); CPK Total, Creatine Kinase 1239 U/L (39-308); Calcium,Total 8.3 mg/dL (8.5-10.1); Chloride 108 mmol/L (98-107); Creatinine, Serum 0.65 mg/dL (0.70-1.30); EST Glomerular Filtration Rate 149 mL/min (>60); Est Glom Filt Rate - Afr Amer 180 mL/min (>60); Estimated Creatinine Clearance 172.16 ml/min; Globulin 3.8 g/dL (2.2-4.2); Glucose 178 mg/dL (74-106); Potassium 3.2 mmol/L (3.5-5.1); Protein, Total 6.3 g/dL (6.4-8.2); Sodium Level 140 mmol/L (136-145)
--- NOTE | 2023-01-17 07:52 | PN.ORTHO_ITS ---
Subjective Subjective Patient seen and examined. Reports soreness in his right hand. Reports continued purulent drainage right dorsal hand wound. Reports some subjective fevers overnight. Denies nausea vomiting, chest pain or shortness of breath. Objective Data Objective Data Vital Signs: Vital Signs Temp Pulse Resp BP Pulse Ox O2 Del Method 98.2 F 71 16 138/72 H 98 Room Air 01/17/23 02:59 01/17/23 02:59 01/17/23 02:59 01/17/23 02:59 01/17/23 02:59 01/17/23 02:59 Oxygen Delivery Method Room Air Weight: 218 lb 4.122 oz Body Mass Index (BMI) 30.4 Intake & Output: Intake and Output for Last 24 Hours 01/15/23 01/16/23 01/17/23 23:59 23:59 23:59 Intake Total 5905 / 5905 5647.5 / 5647.5 714.17 / 714.17 Output Total 3000 / 3000 1725 / 2425 1450 / 1450 Balance 2905 / 2905 3922.5 / 3222.5 -735.83 / -735.83 Lab / Micro Data Result Diagrams: 01/17/23 06:15 01/17/23 06:15 Labs: Laboratory Results - last 24 hr 01/16/23 06:15: Differential Comment SCANNED 01/16/23 13:50: Vancomycin Trough 10.4 01/17/23 06:15: WBC 12.6 H, RBC 4.17 L, Hgb 12.4 L, Hct 37.2 L, MCV 89.2, MCH 29.7, MCHC 33.3, RDW Std Deviation 43.6, RDW Coeff of Rita 13.4, Plt Count 193, MPV 10.0, Immature Gran % (Auto) 3.700 H, Neut % (Auto) 68.7, Lymph % (Auto) 18.7 L, [place] % (Auto) 6.6, Eos % (Auto) 1.8, Baso % (Auto) 0.5, Absolute Neuts (auto) 8.6 H, Absolute Lymphs (auto) 2.35, Nucleated RBC % 0 01/17/23 06:15: Sodium 140, Potassium 3.2 L, Chloride 108 H, Carbon Dioxide 25.0, Anion Gap 7, BUN 9, Creatinine 0.65 L, Estim Creat Clear Calc 172.16, Est GFR (MDRD) Af Amer 180, Est GFR (MDRD) Non-Af 149, BUN/Creatinine Ratio 13.8, Glucose 178 H, Calcium 8.3 L, Total Bilirubin 0.30, AST 91 H, ALT 139 H, Alkaline Phosphatase 89, Total Creatine Kinase 1239 H, Total Protein 6.3 L, Albumin 2.5 L, Globulin 3.8, Albumin/Globulin Ratio 0.7 L 01/17/23 06:15: Phosphorus 4.1 Micro: Microbiology 01/14/23 08:40 Tissue - Hand Gram Stain - Final 01/14/23 08:40 Tissue - Hand Wound Culture - Final Staphylococcus aureus 01/14/23 08:40 Tissue - Hand Anaerobic Culture - Preliminary Checking for anaerobes, further studies to follow. 01/13/23 20:11 Blood Culture (Wb) - Left Hand Blood Culture - Preliminary No growth in 48 hours. 01/13/23 20:02 Blood Culture (Wb) - Arm Left Blood Culture - Preliminary No growth in 48 hours. Physical Exam Narrative General - A&Ox3, NAD. VSS/AF. Right upper Extremity - SILT & 5/5 in radial, ulnar, musculocutaneous, axillary, and median nerve distributions. Radial, ulnar pulses 2+. Compartments soft and compressible. BCR in finger tips. Cardinal motions of the right hand are intact. Dressing removed. Nonpitting edema noted along the dorsum of the right hand, improved since yesterday. Erythema appears slightly improved. Well approximated dorsal hand incision with sutures in place. Purulent drainage noted on dressing. Purulent drainage expressed from the wound no short arc range of motion pain at the right wrist or fingers. No palpable fluctuance. Assessment & Plan Assessment/Plan (1) Extensor tenosynovitis of wrist: PLAN: POD#3 s/p right extensor tendon sheath I&D -Patient continues with purulent drainage from the right extensor tendon incision/wound. Cellulitis appears slightly improved. Patient continues with significant right hand pain. I will order an MRI with and without contrast of the right hand today to rule out any additional fluid collections that may benefit from surgical drainage. I emphasized the importance of strict elevation for his right hand cellulitis. Patient amenable to trying a sling to ensure her right hand is elevated. Sling ordered today. Will follow. -Infectious disease following. - Medicine following for medical management -Occupational Therapy ordered for range of motion and edema control of the right hand and wrist - DVT PPX -Lovenox, SCDs, early mobilization
[2023-01-17 07:56] VITALS: BP 121/75; PULSE 75; RESP 16; TEMP 36.6; O2SAT 98
[2023-01-17] MEDS: Gabapentin 100 MG Capsule PO ×3 (08:08→17:33)
[2023-01-17] MEDS: Enoxaparin 40 MG/0.4 ML Syringe SC (08:08)
[2023-01-17 08:36] VITALS: BP 111/71; PULSE 75; RESP 16; TEMP 36.9; O2SAT 98
--- NOTE | 2023-01-17 09:13 | PN.HOSP_ITS ---
Reason for Visit Reason for Visit: Diagnoses Sepsis, unspecified organism (01/13/23) Acute viral hepatitis, unspecified (01/13/23) Elevated white blood cell count, unspecified (01/13/23) Hypo-osmolality and hyponatremia (01/13/23) Acidosis, unspecified (01/13/23) Other stimulant abuse, uncomplicated (01/13/23) Other psychoactive substance abuse, uncomplicated (01/13/23) Cellulitis of right upper limb (01/13/23) Other synovitis and tenosynovitis, unspecified forearm (01/13/23) Acute kidney failure, unspecified (01/13/23) Hyperglycemia, unspecified (01/13/23) Subjective Subjective Follow-up for complicated right hand infection with tenosynovitis, purulent drainage Objective Data Objective Data Vital Signs: Vital Signs Temp Pulse Resp BP Pulse Ox O2 Del Method 98.4 F 75 16 111/71 98 Room Air 01/17/23 08:36 01/17/23 08:36 01/17/23 08:36 01/17/23 08:36 01/17/23 08:36 01/17/23 08:36 Oxygen Delivery Method Room Air Weight: 218 lb 4.122 oz Body Mass Index (BMI) 30.4 Intake & Output: Intake and Output for Last 24 Hours 01/15/23 01/16/23 01/17/23 23:59 23:59 23:59 Intake Total 5905 / 5905 5647.5 / 5647.5 714.17 / 714.17 Output Total 3000 / 3000 1725 / 2425 1450 / 1450 Balance 2905 / 2905 3922.5 / 3222.5 -735.83 / -735.83 Lab / Micro Data Result Diagrams: 01/17/23 06:15 01/17/23 06:15 Labs: Laboratory Results - last 24 hr 01/16/23 13:50: Vancomycin Trough 10.4 01/17/23 06:15: WBC 12.6 H, RBC 4.17 L, Hgb 12.4 L, Hct 37.2 L, MCV 89.2, MCH 29.7, MCHC 33.3, RDW Std Deviation 43.6, RDW Coeff of Rita 13.4, Plt Count 193, MPV 10.0, Immature Gran % (Auto) 3.700 H, Neut % (Auto) 68.7, Lymph % (Auto) 18.7 L, Meade % (Auto) 6.6, Eos % (Auto) 1.8, Baso % (Auto) 0.5, Absolute Neuts (auto) 8.6 H, Absolute Lymphs (auto) 2.35, Nucleated RBC % 0 01/17/23 06:15: Sodium 140, Potassium 3.2 L, Chloride 108 H, Carbon Dioxide 25.0, Anion Gap 7, BUN 9, Creatinine 0.65 L, Estim Creat Clear Calc 172.16, Est GFR (MDRD) Af Amer 180, Est GFR (MDRD) Non-Af 149, BUN/Creatinine Ratio 13.8, Glucose 178 H, Calcium 8.3 L, Total Bilirubin 0.30, AST 91 H, ALT 139 H, Alkaline Phosphatase 89, Total Creatine Kinase 1239 H, Total Protein 6.3 L, Albumin 2.5 L, Globulin 3.8, Albumin/Globulin Ratio 0.7 L 01/17/23 06:15: Phosphorus 4.1 Micro: Microbiology 01/14/23 08:40 Tissue - Hand Gram Stain - Final 01/14/23 08:40 Tissue - Hand Wound Culture - Final Staphylococcus aureus 01/14/23 08:40 Tissue - Hand Anaerobic Culture - Preliminary Checking for anaerobes, further studies to follow. 01/13/23 20:11 Blood Culture (Wb) - Left Hand Blood Culture - Preliminary No growth in 48 hours. 01/13/23 20:02 Blood Culture (Wb) - Arm Left Blood Culture - Preliminary No growth in 48 hours. Physical Exam Narrative Seen and examined. Patient is still has swelling, purulent drainage. No fever. Physical exam General: Alert, Oriented x3, Cooperative HEENT: Atraumatic, PERRLA, EOMI, Normocephalic Oral: No Gingival or Mucosal Lesions/ Ulcerations Neck: Supple, No JVD, Negative Carotid Bruits Lungs: Air entry diminished in bilateral lung bases. No crepitation/rhonchi Cardiovascular: Regular rate, Regular Rhythm, Normal S1, Normal S2, No murmurs Abdomen: Bowel Sounds Present, Soft, Non Tender, Non-Distended : No renal angle tenderness. No suprapubic tenderness. Extremities: Right hand is edematous swollen and tender on extensor surface. 2 stitches were open. Mild purulent/serous fluid drainage, drainage is decreased. Mild flexor deformity of fingers and tenderness in passive finger extension. Skin: IVDA history. Status postdrainage of right hand abscess. Right hand cellulitis/redness is improved Musculoskeletal: ROM intact of lower extremities. Neurological: Cranial nerves II-XII grossly intact, DTR 2+/4 and Symmetrical, Neuro grossly intact Psych/Mental Status: Flat affect. Assessment & Plan Assessment/Plan (1) Sepsis: (2) Cellulitis of right hand: (3) PILO (acute kidney injury): (4) Acute hepatitis: PLAN: Plan 1. Sepsis second to right hand cellulitis, extensor tenosynovitis: Patient had right extensor tendon sheath incision and drainage on 01/14/2023. Purulent angelo inage and decreased. Packing was removed. 3 times daily soapy water soak. ROM exercises of digits and wrist. Intra-Op cultures growing MSSA. On IV antibiotics. ID consult reviewed and appreciated. Procalcitonin was high. 5/2:Patient still has hand pain and extension of finger is painful and tender. Subjective fever overnight but temperature afebrile. Patient has purulent drainage from the incision site. Adjoining area of cellulitis is better. Leukocytosis improving. MRI is ordered by orthopedic surgeon. Intra-Op cultures Staph aureus 3+ MSSA. 4+ WBC. 2. IV methamphetamine use disorder: HIV negative hep panel pending. 3. PILO: PILO resolved. Renal function creatinine back to the baseline. 4. Acute liver injury probably due to rhabdomyolysis/infectious hepatitis: Transaminases are high, ALT 213, AST 714 AST ALT ratio 3 is to 1. CK was high 68,433. TB 1.1, repeat normal. Abdominal ultrasound shows hepatic steatosis and hepatomegaly with cholelithiasis bloody sludge but no GB wall thickening or features of acute cholecystitis. 5/2: Further improvement in liver transaminases CKD 1239. A/G ratio 0.7. Hypoalbuminemia. 5 DVT: Lovenox Microbiology Past 72 Hours 01/14/23 08:40 Tissue - Hand Gram Stain - Final 01/14/23 08:40 Tissue - Hand Wound Culture - Final Staphylococcus aureus 01/14/23 08:40 Tissue - Hand Anaerobic Culture - Preliminary Checking for anaerobes, further studies to follow. 01/13/23 20:11 Blood Culture (Wb) - Left Hand Blood Culture - Preliminary No growth in 48 hours. 01/13/23 20:02 Blood Culture (Wb) - Arm Left Blood Culture - Preliminary No growth in 48 hours. Laboratory Results 01/13/23 15:25: Diff Path Review Reviewed 01/16/23 13:50: Vancomycin Trough 10.4 01/17/23 06:15: WBC 12.6 H, RBC 4.17 L, Hgb 12.4 L, Hct 37.2 L, MCV 89.2, MCH 29.7, MCHC 33.3, RDW Std Deviation 43.6, RDW Coeff of Rita 13.4, Plt Count 193, MPV 10.0, Immature Gran % (Auto) 3.700 H, Neut % (Auto) 68.7, Lymph % (Auto) 18.7 L, Meade % (Auto) 6.6, Eos % (Auto) 1.8, Baso % (Auto) 0.5, Absolute Neuts (auto) 8.6 H, Absolute Lymphs (auto) 2.35, Nucleated RBC % 0 01/17/23 06:15: Sodium 140, Potassium 3.2 L, Chloride 108 H, Carbon Dioxide 25.0, Anion Gap 7, BUN 9, Creatinine 0.65 L, Estim Creat Clear Calc 172.16, Est GFR (MDRD) Af Amer 180, Est GFR (MDRD) Non-Af 149, BUN/Creatinine Ratio 13.8, Glucose 178 H, Calcium 8.3 L, Total Bilirubin 0.30, AST 91 H, ALT 139 H, Alkalin e Phosphatase 89, Total Creatine Kinase 1239 H, Total Protein 6.3 L, Albumin 2.5 L, Globulin 3.8, Albumin/Globulin Ratio 0.7 L 01/17/23 06:15: Phosphorus 4.1 Clinical Impression(s) from Imaging Studies Hand X-Ray 01/13/23 15:35 IMPRESSION: There is non specific soft tissue swelling of the hand. Abdomen Ultrasound 01/13/23 18:26 IMPRESSION: Hepatic steatosis with hepatomegaly. Cholelithiasis and biliary sludge without gallbladder wall thickening. Upper Extremity CT 01/13/23 18:26 IMPRESSION: Since subcutaneous edema consistent with cellulitis most pronounced in the posterior carpal and metacarpal region. Severe tenosynovitis of the extensor digitorum tendons as they course past the distal carpus and metacarpal regions. Charges/Coding Visit Charges Inpatient E&M: 92986 Subs Hosp L2
[2023-01-17 09:53] LABS: Pathologist Review Reviewed
--- NOTE | 2023-01-17 09:57 | PCM.PN.ID ---
Physical Exam Narrative Feeling about the same, arm still sore and red. No fever, no n/v/d. Const alert and no apparent distress Resp normal air movement and clear to auscultation bilaterally Cardio regular rate and regular rhythm GI soft to palpation, non-tender and non-distended Skin Skin Narrative: R hand/wrist red and swollen, tender ID ID: Route of nutrition/ use of supplements: [] Nutritional Intake: [] IV Site: [] Whitley Catheter: [] Assessment & Plan Assessment/Plan (1) Extensor tenosynovitis of wrist: PLAN: Now s/p I&D by Dr. Moore 01/14/23. Surg cx with MSSA so far. On vanc/zosyn. HIV neg, hep panel pending. Will narrow to cefazolin. MRI planned. Will follow (2) Methamphetamine abuse: (3) Drug abuse, IV:
--- NOTE | 2023-01-17 13:43 | CT_ITS ---
STUDY: CT SCAN HAND RIGHT REASON FOR EXAM: Male, 32 years old. rt hand abscess re eval RADIATION DOSAGE (If Supplied By Facility): CTDIvol = ( 9.46 ) mGy, DLP = ( 234.89 ) mGycm. Individualized dose optimization techniques were used for this CT.? TECHNIQUE: Multiple axial tomographic images were obtained with IV contrast administration. 100 cc of Isovue-300 was injected. COMPARISON: Comparison is made with prior radiographs dated January 13, 2023. FINDINGS: There is dorsal soft tissue swelling. There is evidence of a skin defect overlying the proximal hand overlying the distal carpal row. There is evidence of a prominent soft tissue swelling at that site. No definite abscess cavity is seen at this time although there might be an area of phlegmon. The underlying bony structures are unremarkable. CT/Extremity Upper WITH Contrast IMPRESSION: Dorsal soft tissue swelling as described with overlying skin defect. Findings suggestive of focal phlegmon deep to the skin defect although no gilberto abscess is seen at this time. The underlying bony structures are unremarkable. Electronically Signed: Lamnot Umana MD at 15:00 EDT ,
[2023-01-17 15:20] VITALS: BP 140/83; PULSE 91; RESP 18; TEMP 36.8; O2SAT 98
[2023-01-17] MEDS: Cefazolin 2 GM in 0.9% Normal Saline 100 ML IV ×2 (15:59→21:00)
[2023-01-17 20:59] VITALS: BP 126/73; PULSE 67; RESP 16; TEMP 36.8; O2SAT 97
[2023-01-18 03:00] VITALS: BP 119/67; PULSE 68; RESP 16; TEMP 36.8; O2SAT 98
[2023-01-18] MEDS: Ketorolac 15 MG/ML Vial IV ×3 (03:51→18:31)
[2023-01-18] MEDS: 0.9% Saline Lock 10 ML Syringe IV ×7 (03:54→21:16)
[2023-01-18] MEDS: Na Biphos/Potassium Phosphate PACKET 1 PACKET PO ×2 (05:38→15:02)
[2023-01-18] MEDS: Cefazolin 2 GM in 0.9% Normal Saline 100 ML IV ×3 (05:38→21:12)
[2023-01-18] MEDS: oxyCODONE 5 MG Tablet PO ×4 (05:43→23:52)
[2023-01-18 06:35] LABS: Hematocrit 37.1 % (40-54); Hemoglobin 12.7 g/dL (13.0-16.5); Mean Corp Hgb Conc 34.2 g/dL (32-36); Mean Corpuscular Hgb 30.1 pg (27.0-32.0); Mean Corpuscular Volume 87.9 fL (80-94); Mean Platelet Vol. 9.5 fl (6.2-12.0); POSITIVE COUNT YES; POSITIVE MORPHOLOGY YES; Platelet Count 223 K/mm3 (150-450); RBC Distribution Width CV 13.6 % (11.6-14.6); RBC Distribution Width SD 43.2 fl (35.1-43.9); Red Blood Count 4.22 M/mm3 (4.6-6.2); White Blood Count 11.1 K/mm3 (4.4-11.0)
[2023-01-18 06:39] LABS: Differential Indicated MANUAL DIFF
[2023-01-18 07:04] LABS: Absolute Lymphocyte Count 1.89 X10^3/uL (0.83-4.51); Absolute Neutrophil Count 7.3 X10^3/uL (2.0-7.7); Eosinophil 6 % (0-5); Lymphocyte 17 % (19-41); Monocyte 4 % (0-10); Myelocyte 4 % (0-0); Neutrophil-Segmented 66 % (47-70); Platelet Estimate ADEQUATE (ADEQ); Total Cells Counted 100 (MANUAL DIFF)
[2023-01-18 07:05] LABS: Red Cell Morphology NORM C+C NORMAL (NORM C&C)
[2023-01-18 07:18] LABS: ALB/GLOB Ratio 0.7 RATIO (0.9-2.4); AST(SGOT) 64 U/L (15-37); Alanine Aminotransfer ALT/SGPT 123 U/L (16-61); Albumin, Serum 2.7 g/dL (3.2-5.0); Alkaline Phosphatase 88 U/L (45-117); Anion Gap 8 (5-15); BUN 13 mg/dL (7-18); BUN/Creat Ratio 16.4 RATIO (10-20); CPK Total, Creatine Kinase 626 U/L (39-308); Calcium,Total 8.9 mg/dL (8.5-10.1); Chloride 107 mmol/L (98-107); Creatinine, Serum 0.79 mg/dL (0.70-1.30); EST Glomerular Filtration Rate 120 mL/min (>60); Est Glom Filt Rate - Afr Amer 145 mL/min (>60); Estimated Creatinine Clearance 141.65 ml/min; Glucose 124 mg/dL (74-106); Potassium 3.6 mmol/L (3.5-5.1); Protein, Total 6.7 g/dL (6.4-8.2); Sodium Level 140 mmol/L (136-145)
[2023-01-18 09:00] VITALS: BP 123/77; PULSE 89; RESP 16; TEMP 36.9; O2SAT 98
[2023-01-18] MEDS: Gabapentin 100 MG Capsule PO ×3 (09:42→17:49)
[2023-01-18] MEDS: Enoxaparin 40 MG/0.4 ML Syringe SC (09:42)
[2023-01-18] MEDS: hydrOXYzine 10 MG Tablet PO ×2 (09:47→17:49)
[2023-01-18] MEDS: Ondansetron 4 MG/2 ML Vial IV (09:56)
--- NOTE | 2023-01-18 13:21 | PN.ORTHO_ITS ---
Subjective Subjective Patient seen and examined. States pain in his right hand is dramatically improved. States he was burning up overnight . Otherwise denies any nausea, vomiting, chest pain or shortness of breath. States he has been using the sling to elevate his right hand above his heart level. He notes improvement in his right hand swelling. Objective Data Objective Data Vital Signs: Vital Signs Temp Pulse Resp BP Pulse Ox O2 Del Method 98.5 F 89 16 123/77 H 98 Room Air 01/18/23 09:00 01/18/23 09:00 01/18/23 09:00 01/18/23 09:00 01/18/23 09:00 01/18/23 09:00 Oxygen Delivery Method Room Air Weight: 218 lb 4.122 oz Body Mass Index (BMI) 30.4 Intake & Output: Intake and Output for Last 24 Hours 01/16/23 01/17/23 01/18/23 23:59 23:59 23:59 Intake Total 5647.5 / 5647.5 2932.50 / 2932.50 110 / 110 Output Total 1725 / 2425 2350 / 2350 Balance 3922.5 / 3222.5 582.50 / 582.50 110 / 110 Lab / Micro Data Result Diagrams: 01/18/23 06:26 01/18/23 06:26 Labs: Laboratory Results - last 24 hr 01/18/23 06:26: WBC 11.1 H, RBC 4.22 L, Hgb 12.7 L, Hct 37.1 L, MCV 87.9, MCH 30.1, MCHC 34.2, RDW Std Deviation 43.2, RDW Coeff of Rita 13.6, Plt Count 223, MPV 9.5, Neut % (Auto) Not Reportable, Absolute Neuts (auto) 7.3, Absolute Lymphs (auto) 1.89, Total Counted 100, Neutrophils % (Manual) 66, Lymphocytes % (Manual) 17 L, Monocytes % (Manual) 4, Eosinophils % (Manual) 6 H, Myelocytes % 4 H, Diff Path Review May , Platelet Estimate ADEQUATE, RBC Morphology NORM C+C 01/18/23 06:26: Sodium 140, Potassium 3.6, Chloride 107, Carbon Dioxide 25.0, Anion Gap 8, BUN 13, Creatinine 0.79, Estim Creat Clear Calc 141.65, Est GFR (MDRD) Af Amer 145, Est GFR (MDRD) Non-Af 120, BUN/Creatinine Ratio 16.4, Glucose 124 H, Calcium 8.9, Total Bilirubin 0.30, AST 64 H, ALT 123 H, Alkaline Phosphatase 88, Total Creatine Kinase 626 H, Total Protein 6.7, Albumin 2.7 L, Globulin 4.0, Albumin/Globulin Ratio 0.7 L Micro: Microbiology 01/14/23 08:40 Tissue - Hand Gram Stain - Final 01/14/23 08:40 Tissue - Hand Wound Culture - Final Staphylococcus aureus 01/14/23 08:40 Tissue - Hand Anaerobic Culture - Final No anaerobic bacteria isolated. 01/13/23 20:11 Blood Culture (Wb) - Left Hand Blood Culture - Preliminary No growth in 48 hours. 01/13/23 20:02 Blood Culture (Wb) - Arm Left Blood Culture - Preliminary No growth in 48 hours. Radiography Diagnostic Testing: Radiology Impression Upper Extremity CT 01/17/23 13:43 IMPRESSION: Dorsal soft tissue swelling as described with overlying skin defect. Findings suggestive of focal phlegmon deep to the skin defect although no gilberto abscess is seen at this time. The underlying bony structures are unremarkable. Electronically Signed: Lamont Umana MD at 15:00 EDT , Physical Exam Narrative General - A&Ox3, NAD. VSS/AF. Right upper Extremity - SILT & 5/5 in radial, ulnar, musculocutaneous, axillary, and median nerve distributions. Radial, ulnar pulses 2+. Compartments soft and compressible. BCR in finger tips. Cardinal motions of the right hand are intact. Dressing removed. Nonpitting edema noted along the dorsum of the right hand, dramatically improved since yesterday. Erythema nearly entirely resolved. Well approximated dorsal hand incision with sutures in place. Purulent drainage noted on dressing. Purulent drainage expressed from the wound no short arc range of motion pain at the right wrist or fingers. No palpable fluctuance. Assessment & Plan Assessment/Plan (1) Extensor tenosynovitis of wrist: PLAN: POD#4 s/p right extensor tendon sheath I&D -Patient continues with purulent drainage from the right extensor tendon incision/wound. Cellulitis nearly completely resolved. Pain is dramatically improved as is swelling. Emphasized importance of continued hand elevation and use of sling. CT scan obtained yesterday due to MRI contraindication due to retained metallic fragments around the right eye. CT scan demonstrated no obvious new fluid collection. -The appearance of the patient's right hand has improved dramatically in the last 24 hours. He continues with subjective fevers overnight. Given his h omelessness, patient feels he would benefit from 1 more day in the hospital to coordinate where he is going to stay upon discharge. From my standpoint, patient appears stable for discharge however is social situation is important to consider regarding discharge timing and ensuring proper care upon discharge. Defer to infectious disease regarding home-going antibiotic recommendations. Continue 3 times daily soap water soaks and range of motion exercises as well as strict elevation of the right hand. -Infectious disease following. - Medicine following for medical management -Occupational Therapy ordered for range of motion and edema control of the right hand and wrist - DVT PPX -Lovenox, SCDs, early mobilization
--- NOTE | 2023-01-18 14:56 | PCM.PN.HOSP ---
Reason for Visit Reason for Visit: Diagnoses Sepsis, unspecified organism (01/13/23) Acute viral hepatitis, unspecified (01/13/23) Elevated white blood cell count, unspecified (01/13/23) Hypo-osmolality and hyponatremia (01/13/23) Acidosis, unspecified (01/13/23) Other stimulant abuse, uncomplicated (01/13/23) Other psychoactive substance abuse, uncomplicated (01/13/23) Cellulitis of right upper limb (01/13/23) Other synovitis and tenosynovitis, unspecified forearm (01/13/23) Acute kidney failure, unspecified (01/13/23) Hyperglycemia, unspecified (01/13/23) Objective Data Objective Data Vital Signs: Vital Signs Temp Pulse Resp BP Pulse Ox O2 Del Method 98.5 F 89 16 123/77 H 98 Room Air 01/18/23 09:00 01/18/23 09:00 01/18/23 09:00 01/18/23 09:00 01/18/23 09:00 01/18/23 09:00 Oxygen Delivery Method Room Air Weight: 218 lb 4.122 oz Body Mass Index (BMI) 30.4 Intake & Output: Intake and Output for Last 24 Hours 01/16/23 01/17/23 01/18/23 23:59 23:59 23:59 Intake Total 5647.5 / 5647.5 2932.50 / 2932.50 110 / 110 Output Total 1725 / 2425 2350 / 2350 Balance 3922.5 / 3222.5 582.50 / 582.50 110 / 110 Lab / Micro Data Result Diagrams: 01/18/23 06:26 01/18/23 06:26 Labs: Laboratory Results - last 24 hr 01/18/23 06:26: WBC 11.1 H, RBC 4.22 L, Hgb 12.7 L, Hct 37.1 L, MCV 87.9, MCH 30.1, MCHC 34.2, RDW Std Deviation 43.2, RDW Coeff of Rita 13.6, Plt Count 223, MPV 9.5, Neut % (Auto) Not Reportable, Absolute Neuts (auto) 7.3, Absolute Lymphs (auto) 1.89, Total Counted 100, Neutrophils % (Manual) 66, Lymphocytes % (Manual) 17 L, Monocytes % (Manual) 4, Eosinophils % (Manual) 6 H, Myelocytes % 4 H, Diff Path Review January, Platelet Estimate ADEQUATE, RBC Morphology NORM C+C 01/18/23 06:26: Sodium 140, Potassium 3.6, Chloride 107, Carbon Dioxide 25.0, Anion Gap 8, BUN 13, Creatinine 0.79, Estim Creat Clear Calc 141.65, Est GFR (MDRD) Af Amer 145, Est GFR (MDRD) Non-Af 120, BUN/Creatinine Ratio 16.4, Glucose 124 H, Calcium 8.9, Total Bilirubin 0.30, AST 64 H, ALT 123 H, Alkaline Phosphatase 88, Total Creatine Kinase 626 H, Total Protein 6.7, Albumin 2.7 L, Globulin 4.0, Albumin/Globulin Ratio 0.7 L Micro: Microbiology 01/14/23 08:40 Tissue - Hand Gram Stain - Final 01/14/23 08:40 Tissue - Hand Wound Culture - Final Staphylococcus aureus 01/14/23 08:40 Tissue - Hand Anaerobic Culture - Final No anaerobic bacteria isolated. 01/13/23 20:11 Blood Culture (Wb) - Left Hand Blood Culture - Preliminary No growth in 48 hours. 01/13/23 20:02 Blood Culture (Wb) - Arm Left Blood Culture - Preliminary No growth in 48 hours. Radiography Diagnostic Testing: Radiology Impression Upper Extremity CT 01/17/23 13:43 IMPRESSION: Dorsal soft tissue swelling as described with overlying skin defect. Findings suggestive of focal phlegmon deep to the skin defect although no gilberto abscess is seen at this time. The underlying bony structures are unremarkable. Electronically Signed: Lamont Umana MD at 15:00 EDT , Physical Exam Narrative Seen and examined. Patient feels improvement in the pain of the right hand. Drainage is also decreased. CT scan done yesterday was reviewed. Patient had MRI contraindication as needed metallic fragments around the right eye. Physical exam General: Alert, Oriented x3, Cooperative HEENT: Atraumatic, PERRLA, EOMI, Normocephalic Oral: No Gingival or Mucosal Lesions/ Ulcerations Neck: Supple, No JVD, Negative Carotid Bruits Lungs: Air entry diminished in bilateral lung bases. No crepitation/rhonchi Cardiovascular: Regular rate, Regular Rhythm, Normal S1, Normal S2, No murmurs Abdomen: Bowel Sounds Present, Soft, Non Tender, Non-Distended : No renal angle tenderness. No suprapubic tenderness. Extremities: Right hand is in mild tenderness is improved. 2 stitches were open. Minimal drainage. Mild flexor deformity of fingers and tenderness in passive finger extension. ROM exercise of right hand. Skin: IVDA history. Status postdrainage of right hand abscess. Right hand cellulitis/redness is improved Musculoskeletal: ROM intact of lower extremities. Neurological: Cranial nerves II-XII grossly intact, DTR 2+/4 and Symmetrical, Neuro grossly intact Psych/Mental Status: Flat affect. Assessment & Plan Assessment/Plan (1) Sepsis: (2) Cellulitis of right hand: (3) PILO (acute kidney injury): (4) Acute hepatitis: PLAN: Plan 1. Sepsis second to right hand cellulitis, extensor tenosynovitis: Patient had right extensor tendon sheath incision and drainage on 01/14/2023. Purulent drainage and decreased. Packing was removed. 3 times daily soapy water soak. ROM exercises of digits and wrist. Intra-Op cultures growing MSSA. On IV antibiotics. ID consult reviewed and appreciated. Procalcitonin was high. 01/17:Patient still has hand pain and extension of finger is painful and tender. Subjective fever overnight but temperature afebrile. Patient has purulent drainage from the incision site. Adjoining area of cellulitis is better. Leukocytosis improving. MRI is ordered by orthopedic surgeon. Intra-Op cultures Staph aureus 3+ MSSA. 4+ WBC. 5/: CT scan shows inflammatory soft tissue swelling suggestive of focal phlegmon deep to skin with no gilberto abscess. Underlying bony structures are unremarkable. Ortho follow-up reviewed and appreciated. Advised 3 times soap water soak and range of motion exercises with strict elevation of right hand. Discharge plan. 2. IV methamphetamine use disorder: HIV negative hep panel pending. 3. PILO: PILO resolved. Renal function creatinine back to the baseline. 4. Acute liver injury probably due to rhabdomyolysis/infectious hepatitis: Transaminases are high, ALT 213, AST 714 AST ALT ratio 3 is to 1. CK was high 68,433. TB 1.1, repeat normal. Abdominal ultrasound shows hepatic steatosis and hepatomegaly with cholelithiasis bloody sludge but no GB wall thickening or features of acute cholecystitis. 5/2: Further improvement in liver transaminases CKD 1239. A/G ratio 0.7. Hypoalbuminemia. 5 DVT: Lovenox Clinical Impression(s) from Imaging Studies Hand X-Ray 01/13/23 15:35 IMPRESSION: There is non specific soft tissue swelling of the hand. Abdomen Ultrasound 01/13/23 18:26 IMPRESSION: Hepatic steatosis with hepatomegaly. Cholelithiasis and biliary sludge without gallbladder wall thickening. Upper Extremity CT 01/13/23 18:26 IMPRESSION: Since subcutaneous edema consistent with cellulitis most pronounced in the posterior carpal and metacarpal region. Severe tenosynovitis of the extensor digitorum tendons as they course past the distal carpus and metacarpal regions. Charges/Coding Visit Charges Inpatient E&M: 37848 Subs Hosp L2
[2023-01-18 15:00] VITALS: BP 127/78; PULSE 96; RESP 16; TEMP 36.8; O2SAT 96
--- NOTE | 2023-01-18 15:23 | CASEMGMT ---
Social Work Nurse reporting to SW that pt is requesting a list of housing resources. SW reviewed pt notes and seen pt was given list from ED ATNIA Mcdonald. SW printed Homeless Longterm resource list, [facility], and [facility] Housing Navigator information. Pt declined for further SW assistance at this time stating no other needs. SOFIA Fontaine
[2023-01-18 20:54] VITALS: BP 113/60; PULSE 90; RESP 16; TEMP 36.8; O2SAT 97
--- NOTE | 2023-01-19 01:52 | NURSING ---
Pt refused dressing change in evening 5, said hand was too sore. Pain meds had been given; voiced willingness to soak hand in am 01/19.
[2023-01-19 04:56] VITALS: BP 122/70; PULSE 80; RESP 18; TEMP 36.6; O2SAT 100
[2023-01-19] MEDS: oxyCODONE 5 MG Tablet PO (05:02)
[2023-01-19] MEDS: Cefazolin 2 GM in 0.9% Normal Saline 100 ML IV (05:03)
[2023-01-19] MEDS: hydrOXYzine 10 MG Tablet PO (05:19)
[2023-01-19 07:39] LABS: Hematocrit 39.3 % (40-54); Mean Corp Hgb Conc 33.1 g/dL (32-36); Mean Corpuscular Hgb 29.7 pg (27.0-32.0); Mean Corpuscular Volume 89.9 fL (80-94); Mean Platelet Vol. 9.7 fl (6.2-12.0); POSITIVE COUNT YES; POSITIVE MORPHOLOGY YES; Platelet Count 252 K/mm3 (150-450); RBC Distribution Width CV 13.6 % (11.6-14.6); RBC Distribution Width SD 44.9 fl (35.1-43.9); Red Blood Count 4.37 M/mm3 (4.6-6.2); White Blood Count 11.1 K/mm3 (4.4-11.0)
[2023-01-19 07:44] LABS: Differential Indicated MANUAL DIFF
[2023-01-19 07:51] LABS: CPK Total, Creatine Kinase 390 U/L (39-308)
--- NOTE | 2023-01-19 08:00 | PCM.DC ---
Discharge Instructions Diet Discharge Diet: No restrictions Activity Discharge Activity: Return to Normal Activity and May Not Drive Weight Bearing Status: Weight bearing as tolerated Dressing / Incision Call your doctor if your incision/area has: - (Continue 3 times daily soap water soaks and range of motion exercises as well as strict elevation of the right hand.) Call your doctor if you observe: Fever of 101 or Higher, Coldness, Increased Pain, Numbness or Tingling, Change in Color, Inability to urinate, Inability to have a bowel movement, Shortness of breath, Dizziness, Fainting spells, Swelling in the ankles, Chest pain, Prolonged hiccupping, Increased palpitations (irregular heartbeat) and Calf discomfort Follow Up Care When: IN 2 WEEKS Test Results: Test results from this visit will be discussed in further detail at your follow-up appointment, if applicable. Discharge Plan Admission Admit Date/Time: 01/13/23 18:16 Primary Reason for Your Visit: Extensor tenosynovitis of the right hand and wrist Attending Provider: Jamil Burgess Primary Care Provider: Care Physician,No Primary Consulting Providers: Mary Szymanski ; Akbar Kim ; Dre Tabares ; Akbar Moore Discharge Orders/Prescriptions Prescriptions: New nicotine 21 mg/24 hr Patch 24 Hour 21 mg transdermal DAILY 28 Days Qty: 28 0RF hydroxyzine HCl 10 mg Tablet 10 mg PO 4X/DAY PRN PRN (Reason: Anxiety/ITCHING) Qty: 30 0RF Rx Instructions: Avoid driving. oxycodone 5 mg Tablet 2.5 mg PO Q4H PRN PRN (Reason: Pain Score 4-10) 3 Days Qty: 10 0RF Rx Instructions: 2.5 mg for 4-6 and 5 mg for 7-10 pain intensity respectively sennosides-docusate sodium [Stool Softener-Stimulant Laxat] 8.6-50 mg Tablet 2 tab PO BID PRN PRN (Reason: Constipation) Qty: 0 0RF cephalexin 500 mg capsule 500 mg PO Q8H Qty: 30 0RF Referrals / Follow Up: Kyleigh Salcido MD [Med Staff - Shelf Drier Operator] - Akbar Moore DO [Med Staff - Active Staff] - 01/25/23 Care Physician,No Primary [Primary Care Provider] - Disposition Disposition (needs filled in before D/C Order can be placed): Home, Self Care
[2023-01-19 08:28] LABS: Eosinophil 2 % (0-5); Lymphocyte 21 % (19-41); Metamyelocyte 3 % (0-1); Monocyte 5 % (0-10); Neutrophil-Band 1 % (0-5); Neutrophil-Segmented 67 % (47-70); Platelet Estimate ADEQUATE (ADEQ); Promyelocyte 1 % (0-0); Red Cell Morphology NORM C+C NORMAL (NORM C&C); Total Cells Counted 100 (MANUAL DIFF)
[2023-01-19 08:29] LABS: Absolute Neutrophil Count 7.5 X10^3/uL (2.0-7.7)
[2023-01-19] MEDS: Enoxaparin 40 MG/0.4 ML Syringe SC (08:43)
[2023-01-19] MEDS: Gabapentin 100 MG Capsule PO (08:43)
[2023-01-19 08:45] VITALS: BP 138/80; PULSE 75; RESP 18; TEMP 36.8; O2SAT 100
--- NOTE | 2023-01-19 09:22 | DS.PCM_ITS ---
Providers Date of Admission: 01/13/23 Date of Discharge: 01/19/23 Primary Care Physician: Elina Primary Care Phys Consultations 01/13/23 19:23 Consult: Orthopedics Routine Consulting Provider: Akbar Moore Reason for Consult: R hand cellulitis EMERGENT Consult: No Notified: Yes Date Notified: 01/13/23 Time Notified: 18:17 Method of Notification: Text 01/16/23 13:37 Consult: Infectious Disease Routine Consulting Provider: Dre Tabares Reason for Consult: RIGHT Hand tenosynovitis, IVDA EMERGENT Consult: No Notified: Yes Date Notified: 01/16/23 Time Notified: 13:37 Method of Notification: Text 01/16/23 13:46 Consult: Infectious Disease Routine Consulting Provider: Dre Tabares Reason for Consult: Right hand tenosynovitis, IVDA EMERGENT Consult: No Notified: Yes Date Notified: 01/16/23 Time Notified: 12:45 Method of Notification: Text Reason For Visit: SEPSIS 2/2 R HAND CELLULITIS Diagnosis Discharge Diagnosis (1) Sepsis: Status: Acute Code(s): A41.9 - Sepsis, unspecified organism (2) Cellulitis of right hand: Status: Acute Code(s): L03.113 - Cellulitis of right upper limb (3) PILO (acute kidney injury): Status: Acute Code(s): N17.9 - Acute kidney failure, unspecified (4) Acute hepatitis: Status: Acute Code(s): B17.9 - Acute viral hepatitis, unspecified Plan 1. Sepsis second to right hand cellulitis, extensor tenosynovitis: Patient had right extensor tendon sheath incision and drainage on 01/14/2023. Purulent drainage and decreased. Packing was removed. 3 times daily soapy water soak. ROM exercises of digits and wrist. Intra-Op cultures growing MSSA. On IV antibiotics. ID consult reviewed and appreciated. Procalcitonin was high. 01/17:Patient still has hand pain and extension of finger is painful and tender. Subjective fever overnight but temperature afebrile. Patient has purulent drainage from the incision site. Adjoining area of cellulitis is better. Leukocytosis improving. MRI is ordered by orthopedic surgeon. Intra-Op cultures Staph aureus 3+ MSSA. 4+ WBC. 01/18: CT scan shows inflammatory soft tissue swelling suggestive of focal phlegmon deep to skin with no gilberto abscess. Underlying bony structures are unremarkable. Ortho follow-up reviewed and appreciated. Discharge plan. 01/19: Right hand swelling and tenderness is improved. No obvious discharge but minimal staining on the dressing. Orthopedic surgeon cleared for discharge. Antibiotics prescription as per ID. Prescription given for oxycodone 5 mg tablet total 10 tablets. Prescriptions also given for nicotine patch. Advised 3 times soap water soak and range of motion exercises with strict elevation of right hand. 2. 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 Hepatitis panel still pending. 3. PILO: PILO resolved. Renal function creatinine back to the baseline. 4. Acute liver injury probably due to rhabdomyolysis/infectious hepatitis: Transaminases are high, ALT 213, AST 714 AST ALT ratio 3 is to 1. CK was high 68,433. TB 1.1, repeat normal. Abdominal ultrasound shows hepatic steatosis and hepatomegaly with yves lithiasis bloody sludge but no GB wall thickening or features of acute cholecystitis. 01/17: Further improvement in liver transaminases CKD 1239. A/G ratio 0.7. Hypoalbuminemia. 5 DVT: Lovenox Clinical Impression(s) from Imaging Studies Hand X-Ray 01/13/23 15:35 IMPRESSION: There is non specific soft tissue swelling of the hand. Abdomen Ultrasound 01/13/23 18:26 IMPRESSION: Hepatic steatosis with hepatomegaly. Cholelithiasis and biliary sludge without gallbladder wall thickening. Upper Extremity CT 01/13/23 18:26 IMPRESSION: Since subcutaneous edema consistent with cellulitis most pronounced in the posterior carpal and metacarpal region. Severe tenosynovitis of the extensor digitorum tendons as they course past the distal carpus and metacarpal regions. Medications at Discharge Home Medications cephalexin 500 mg capsule 500 mg PO Q8H #30 caps 01/19/23 hydroxyzine HCl 10 mg tablet 10 mg PO 4X/DAY PRN PRN Anxiety/ITCHING #30 tabs 01/19/23 nicotine 21 mg/24 hr daily transdermal patch 21 mg transdermal DAILY 28 days #28 ea 01/19/23 oxycodone 5 mg tablet 2.5 mg PO Q4H PRN PRN Pain Score 4-10 3 days #10 tabs 01/19/23 sennosides 8.6 mg-docusate sodium 50 mg tablet (Stool Softener-Stimulant Laxative) 2 tab PO BID PRN PRN Constipation #0 tabs 01/19/23 Physical Exam Narrative Seen and examined. Patient feels improvement in the pain of the right hand. Drainage and redness is much decreased. No fever. Physical exam General: Alert, Oriented x3, Cooperative HEENT: Atraumatic, PERRLA, EOMI, Normocephalic Oral: No Gingival or Mucosal Lesions/ Ulcerations Neck: Supple, No JVD, Negative Carotid Bruits Lungs: Air entry diminished in bilateral lung bases. No crepitation/rhonchi Cardiovascular: Regular rate, Regular Rhythm, Normal S1, Normal S2, No murmurs Abdomen: Bowel Sounds Present, Soft, Non Tender, Non-Distended : No renal angle tenderness. No suprapubic tenderness. Extremities: Right hand mild tenderness. 2 stitches were open. No obvious drainage. Mild serous staining on the dressing. Mild flexor deformity of fingers and tenderness in passive finger extension. ROM exercise of right hand is decreased.. Skin: IVDA history. Status postdrainage of right hand abscess. Right hand cellulitis/redness is improved Musculoskeletal: ROM intact of lower extremities. Neurological: Cranial nerves II-XII grossly intact, DTR 2+/4 and Symmetrical, Neuro grossly intact Psych/Mental Status: Flat affect. Weight / BMI Weight Weight: 218 lb 4.122 oz Body Mass Index (BMI) 30.4 ABG / Lab / Microbiology Data Result Diagrams: 01/19/23 06:38 01/18/23 06:26 Laboratory: Laboratory Results - last 24 hr 01/19/23 06:38: WBC 11.1 H, RBC 4.37 L, Hgb 13.0, Hct 39.3 L, MCV 89.9, MCH 29.7, MCHC 33.1, RDW Std Deviation 44.9 H, RDW Coeff of Rita 13.6, Plt Count 252, MPV 9.7, Neut % (Auto) Not Reportable, Absolute Neuts (auto) 7.5, Absolute Lymphs (auto) 2.30, Total Counted 100, Neutrophils % (Manual) 67, Band Neutrophils % 1, Lymphocytes % (Manual) 21, Monocytes % (Manual) 5, Eosinophils % (Manual) 2, Metamyelocytes % 3 H, Promyelocytes % 1 H, Diff Path Review May foll, Platelet Estimate ADEQUATE, RBC Morphology NORM C+C 01/19/23 06:38: Total Creatine Kinase 390 H Microbiology: Microbiology 01/13/23 20:11 Blood Culture (Wb) - Left Hand Blood Culture - Preliminary No growth in 48 hours. 01/13/23 20:02 Blood Culture (Wb) - Arm Left Blood Culture - Final No growth in 5 days. 01/14/23 08:40 Tissue - Hand Gram Stain - Final 01/14/23 08:40 Tissue - Hand Wound Culture - Final Staphylococcus aureus 01/14/23 08:40 Tissue - Hand Anaerobic Culture - Final No anaerobic bacteria isolated. D/C Instructions Discharge Diet: No restrictions Weight Bearing Status: Weight bearing as tolerated Call your doctor if your incision/area has: - (Continue 3 times daily soap water soaks and range of motion exercises as well as strict elevation of the right hand.) Call your doctor if you observe: Fever of 101 or Higher, Coldness, Increased Pain, Numbness or Tingling, Change in Color, Inability to urinate, Inability to have a bowel movement, Shortness of breath, Dizziness, Fainting spells, Swelling in the ankles, Chest pain, Prolonged hiccupping, Increased palpitations (irregular heartbeat) and Calf discomfort When: IN 2 WEEKS Meaningful Use Info Meaningful Use Diagnoses (Choose all that apply): None applicable Discharge Plan Admission Admit Date/Time: 01/13/23 18:16 Primary Reason for Your Visit: Extensor tenosynovitis of the right hand and wrist Attending Provider: Jamil Burgess Primary Care Provider: Care Physician,No Primary Consulting Providers: Mary Szymanski ; Akbar Kim ; Dre Tabares ; Akbar Moore Discharge Orders/Prescriptions Prescriptions: New nicotine 21 mg/24 hr Patch 24 Hour 21 mg transdermal DAILY 28 Days Qty: 28 0RF hydroxyzine HCl 10 mg Tablet 10 mg PO 4X/DAY PRN PRN (Reason: Anxiety/ITCHING) Qty: 30 0RF Rx Instructions: Avoid driving. oxycodone 5 mg Tablet 2.5 mg PO Q4H PRN PRN (Reason: Pain Score 4-10) 3 Days Qty: 10 0RF Rx Instructions: 2.5 mg for 4-6 and 5 mg for 7-10 pain intensity respectively sennosides-docusate sodium [Stool Softener-Stimulant Laxat] 8.6-50 mg Tablet 2 tab PO BID PRN PRN (Reason: Constipation) Qty: 0 0RF cephalexin 500 mg capsule 500 mg PO Q8H Qty: 30 0RF Referrals / Follow Up: Kyleigh Salcido MD [Med Staff - [employer]] - Akbar Moore DO [Med Staff - Active Staff] - 01/25/23 Care Physician,No Primary [Primary Care Provider] - Disposition Disposition (needs filled in before D/C Order can be placed): Home, Self Care Charges/Coding Visit Charges Inpatient E&M: 56140 Disch Hosp >30min
[2023-01-19 09:23] LABS: Pathologist Review Reviewed
--- NOTE | 2023-01-19 09:45 | CASEMGMT ---
Addendum entered by Kalani Saucedo 01/19/23 10:57: Script for dressing supplies and for OP OT obtained from Dr Burgess and given to pt and his mom. Original Note: [place] NOTE: Pt being discharged home on PO atb's. [place] to room. He states is comfortable w/doing soap water soaks and wrapping his hand and denies need for HHC. He states would like to go to [facility] for OP therapy to his wrist. Will obtain script for same and provide to pt. Pt states he will make the appts on his own and does not need CM to assist w/this. He states his mom will be picking him up today to take him to her house for the night and he plans to look into going to a penitentiary tomorrow. He states could use SW assist w/this. TANIA, Chrissy, made aware. Pt states his mom can take him to OP therapy appts. [place] also provided him w/ [facility] Van transportation info to [facility]. Trista BRITO RN, CM
--- NOTE | 2023-01-19 10:00 | CASEMGMT ---
Social Work SW met with pt to discuss housing needs. Pt stating that he plans to go to his mom's house tonight but will need custodial tomorrow. With pt agreement phone call made in pt room on speaker phone to [facility]. [facility] states they do have 2 open beds today and they are on a first come first serve basis. No guarantee that a bed will be available tomorrow. Pt deciding that he will go to the [facility] today instead of tomorrow. Pt name provided to [facility]. Pt states he has no concerns with transportation. SW inquired about permanent housing and pt states he plans to contact [facility] to talk with the housing navigator regarding permanent housing. Pt confirms he has housing information and phone numbers that were provided to pt by [employer] yesterday. Pt denies further assistance from TANIA at this time. RN updated that pt will be discharging to [facility] and requested dressing change teaching take place. SOFIA Herrera
--- NOTE | 2023-01-19 10:04 | PCM.PN.ID ---
Physical Exam Narrative Feeling better, but still some pain in hand. No fever. Const alert and no apparent distress General Appearance: cooperative Resp normal air movement and clear to auscultation bilaterally Cardio regular rate and regular rhythm GI soft to palpation, non-tender and non-distended Skin Skin Narrative: R hand redness and swelling much improved ID ID: Route of nutrition/ use of supplements: [] Nutritional Intake: [] IV Site: [] Whitley Catheter: [] Assessment & Plan Assessment/Plan (1) Extensor tenosynovitis of wrist: PLAN: Now s/p I&D by Dr. Moore 01/14/23. Surg cx with MSSA so far. On cefazolin. HIV neg, hep panel pending. Much improved. Ok for home with 10 days po keflex, wrote rx. Will follow as needed, d/w hospice case manager (2) Methamphetamine abuse: (3) Drug abuse, IV:
--- NOTE | 2023-01-19 11:09 | NURSING ---
Pt is ready to leave he is notified that paperwork is not completed by wrapper caser states his mom has to be some place soon and left without completed paperwork for discharge outpatient therapy and insructions.
[2023-01-20 10:02] LABS: Pathologist Review Reviewed
== END 2023-01-19 10:57 | disposition home or self-care (01) | DRG 364 ==
LOC: ED 17:05 → PCU 18:39 → MS3 01-16 13:46
PROVIDERS: Family Medicine; Hospitalist; Student in an Organized Health Care Education/Training Program; Admitting Provider Internal Medicine; Emergency Provider Emergency Medicine; Visit Provider Internal Medicine
PROC: 0J9J00Z Drainage of Right Hand Subcutaneous Tissue and Fascia with Drainage Device, Open Approach (ICD-10-PCS; principal; 2023-01-14 08:15)
DX: L03.113 Cellulitis of right upper limb (principal); E87.20 Acidosis, unspecified; E87.1 Hypo-osmolality and hyponatremia; E88.09 Other disorders of plasma-protein metabolism, not elsewhere classified; R16.0 Hepatomegaly, not elsewhere classified; N17.9 Acute kidney failure, unspecified; M62.82 Rhabdomyolysis; F15.10 Other stimulant abuse, uncomplicated; K76.0 Fatty (change of) liver, not elsewhere classified; F17.210 Nicotine dependence, cigarettes, uncomplicated; E86.0 Dehydration; M65.141 Other infective (teno)synovitis, right hand; K80.20 Calculus of gallbladder without cholecystitis without obstruction; F17.290 Nicotine dependence, other tobacco product, uncomplicated; X58.XXXA Exposure to other specified factors, initial encounter; B17.9 Acute viral hepatitis, unspecified; R73.9 Hyperglycemia, unspecified; Z59.00 Homelessness unspecified; Z79.899 Other long term (current) drug therapy
CPT/HCPCS: 36415; 73130; 73200; 73201; 76705; 80053; 80074; 80202; 80329; 82550; 83036; 83605; 83735; 84100; 84145; 84443; 85025; 85610; 86703; 87040; 87070; 87075; 87077; 87102; 87186; 87205; 87206; 87641; 94668; 97110; 97166; 99284; J7030; J7040; Q9967; A4216; G0480; J0295; J2405

== ENCOUNTER 2023-06-15 02:56 | Emergency (ER) | payer MEDICAID, SELFPAY ==
[2023-06-15 02:56] VITALS: BP 164/106; PULSE 99; RESP 15; TEMP 37; O2SAT 98; BMI 27.5
[2023-06-15 03:17] VITALS: BP 164/106; PULSE 99; RESP 15; O2SAT 98
--- NOTE | 2023-06-15 03:20 | EDS_ITS ---
HPI History of Present Illness Chief Complaint: Dental Narrative Narrative: 32-year-old male past medical history of previous dental problems saw his dentist last year presents with 2 days of left lower jaw swelling and pain with reported fever. States his left lower jaw swollen. He tried to call his dentist in [place] for the last 4 days but is not getting a call back. He presents to the emergency department because of swelling and pain in his left lower jaw. States he is unable to sleep well secondary to the pain. PFSH PFSH Medical History Chronic headaches Drug abuse Encounter for screening for COVID-19 Extensor tenosynovitis of wrist History of blood clots Pulmonary embolism Home Medications clindamycin HCl 300 mg capsule (Cleocin HCl) 300 mg PO Q6H #40 CAPSULES 06/15/23 [Rx Last Taken Unknown] Allergy/AdvReac Type Severity Reaction Status Date / Time No Known Allergies Allergy Verified 06/15/23 03:01 Family History Aunt Depression Other Asthma CVA (cerebral vascular accident) Diabetes Heart disease Hypertension Mental disorder Surgical History back surgery 03/2010 Social History housing: homeless current occupation: Currently not working Smoking Status: Current every day smoker tobacco type: cigarettes and e- cigarettes Electronic Cigarette Use: without nicotine alcohol intake: never substance use type: amphetamines and methamphetamine ROS ROS ED ROS Narrative Constitutional: Reported fever, no chills. HEENT: No sore throat. No neck pain. No loss of vision. No rhinorrhea. Left lower jaw pain and swelling. Cardiovascular: No chest pain. No palpitations. No pedal edema. Respiratory: No cough, no shortness of breath. Abdominal: No abdominal pain. No nausea. No vomiting. Genitourinary: No dysuria. No hematuria. Musculoskeletal: No myalgias. No arthralgias. Neurologic: No headaches. No dizziness. No lightheadedness. Skin: No rash. No change in color. Psychiatric: No depression. No anxiety. EXAM Physical Exam Narrative Exam Narrative: Afebrile. Vital signs noted. HEENT: Normocephalic. Atraumatic. PERRL, EOMI. Neck soft and supple. No point tenderness or step off. Left lower jaw shows carious tooth around the second molar. There is only half of tooth left. There is mild tenderness and swelling noted. No angioedema of the tongue, no Osmel angina. Cardiovascular: Regular rate and rhythm. No murmurs, rubs, or gallops appreciated. Respiratory: No tachypnea. Lungs clear to auscultation bilaterally. Gastrointestinal: Abdomen soft, nontender, with normoactive bowel sounds. No rebound or guarding. Neurological: Awake. Alert. Nonfocal, nonlateralizing. Skin: No rash. Normal color. No pallor. Musculoskeletal: No pedal edema. Full range of motion extremities. Const Vital Signs: 06/15/23 02:56 Temperature 98.6 F Temperature Source Oral Pulse Rate 99 Respiratory Rate 15 Blood Pressure 164/106 H Blood Pressure Mean 125 Pulse Ox 98 Oxygen Delivery Method Room Air MDM MDM MDM Narrative Medical decision making narrative: I reviewed the patient's prior records, and a few years ago, he had an area incised with the tip of a 18-gauge needle. He was given his first dose of clindamycin here in the emergency department and prescription written to take 4 times a day for the next 10 days. He is to follow-up with a dentist. I discussed needle aspiration with him of the area, but he declined. I do feel that he will require tooth extraction because of the severely carious, fractured tooth in the left lower jaw. I do not feel narcotic pain medication is indicated. He will be discharged to follow-up with his dentist as soon as possible. He was also given a dental referral sheet. Disposition is discharged home in stable condition. Discharge Plan Triage Chief Complaint: Dental ED Provider: Harrison Lozano Dx/Rx/DC Orders Clinical Impression: Dental caries, Dental abscess Instructions: ED Dental Pain, ED Dental Abscess Prescriptions: New clindamycin HCl [Cleocin HCl] 300 mg capsule 300 mg PO Q6H Qty: 40 0RF Primary Care Provider: Care Physician,No Primary Referrals: Care Physician,No Primary [Primary Care Provider] - Dentist,Your [STAFF PHYSICIAN] - As soon as possible Disposition Disposition: Home, Self Care
[2023-06-15] MEDS: Clindamycin HCl 150 MG Capsule 300 MG PO (03:29)
== END 2023-06-15 03:36 | disposition home or self-care (01) ==
LOC: ED 03:23
PROVIDERS: Emergency Provider Emergency Medicine; Visit Provider Emergency Medicine
DX: K02.9 Dental caries, unspecified (principal); K04.7 Periapical abscess without sinus; F17.210 Nicotine dependence, cigarettes, uncomplicated; F17.290 Nicotine dependence, other tobacco product, uncomplicated; Z59.00 Homelessness unspecified
CPT/HCPCS: 99283